=== PATIENT | male | born 1945 | race Caucasian/White ===

== ENCOUNTER 2022-01-09 10:29 | Inpatient (IN) | payer MEDICARE, SELFPAY ==
[2022-01-09] VITALS (108 sets, daily range): BP systolic 66–157; BP diastolic 34–91; PULSE 74–144; RESP 13–42; TEMP 36.6–39.2; O2SAT 9–98; BMI 33.9
--- NOTE | 2022-01-09 10:34 | XRR_ITS ---
PROCEDURE INFORMATION: Exam: XR Chest Exam date and time: 01/09/2022 10:48 AM Age: 76 years old Clinical indication: Shortness of breath; Additional info: SOB TECHNIQUE: Imaging protocol: XR of the chest. Views: 1 view. COMPARISON: CR Chest 1 [place] [id number] 02/27/2019 7:16 PM FINDINGS: Lungs: Unremarkable. No consolidation. Pleural spaces: Unremarkable. No pleural effusion. No pneumothorax. Heart/Mediastinum: Unremarkable. No cardiomegaly. Bones/joints: Unremarkable. XR/XR chest 1V portable [id number] IMPRESSION: No acute findings.
--- NOTE | 2022-01-09 10:35 | ECG_ITS ---
[facility] Test Date: 2022-01-09 Pat Name: Harpreet Pablo Department: Room: [facility]05 Gender: Male [employer] Technician: : 1945 Requested By: Freeman Miller Order Number: [id number] MD: Kuldip Wyatt M.D. Measurements Intervals [place] Rate: 114 P: -70 IA: 140 QRS: 18 QRSD: 152 T: 157 QT: 292 QTc: 402 Interpretive Statements JUNCTIONAL TACHYCARDIA LEFT BUNDLE BRANCH BLOCK [120+ ms QRS DURATION, 80+ ms Q/S IN V1/V2, 85+ ms R IN I/aVL/V5/V6] Compared to ECG 02/27/2019 18:48:55 Junctional tachycardia now present Sinus rhythm no longer present Electronically Signed On 01-10-2022 15:27:44 CDT by Kuldip Wyatt M.D. [id number]
--- NOTE | 2022-01-09 10:39 | PC.NURSE ---
PT PLACED ON CONTINUOUS BEDSIDE CARDIAC, BP AND O2 MONITOR.
[2022-01-09] MEDS: ipratropium-albuterol 3 mL Neb INHALATION ×4 (10:52→23:04)
--- NOTE | 2022-01-09 10:58 | W.ED.SOB ---
Documented by User: Freeman Miller MD 01/10/22 20:49 HPI - SOB/Dyspnea General: Chief Complaint: Shortness of Breath/Dyspnea Stated Complaint: SOB; N/V/D Time Seen by Provider: 01/09/22 10:31 Source: patient and EMS Mode of arrival: EMS Limitations: no limitations History of Present Illness: HPI Narrative: 76-year-old male who has a history of congestive heart failure from COPD along with coronary artery disease states been having shortness of breath throughout the day. He wears 2 L of oxygen at home is requiring 4 L here to keep his sats around 90. He states that he just felt like he cannot get his air caught up and was feeling nauseous. He denies any chest pain he has had some palpitation. Denies any worsening improving factors. Patient also states he been having some right lower quadrant abdominal pain over the last day as well. States that sharp in nature rates today 6 out of 10 Associated symptoms: Deny abdominal pain, chest pain, fever(s), nausea or vomiting Review of Systems Const: Denies: fever(s), chills, body aches or change in appetite Eyes: Denies: blurry vision or eye discomfort ENMT: Denies: throat pain or dental pain Card: Denies: chest pain Resp: Reports: dyspnea GI: Denies: abdominal pain, nausea, vomiting or diarrhea : Denies: dysuria Musc: Denies: neck pain or back pain Skin/Breast: Denies: rash Neuro: Denies: headache(s) Psych: Denies: depression Ashwin/Lymph: Denies: easy bruising All/Imm: Denies: urticaria PFSH ED PFSH: Medical History (Updated 01/10/22 @ 14:26 by Richard Castaneda MD) Atrial fibrillation CAD (coronary artery disease) Chronic kidney disease Emphysema lung Systolic CHF Surgical History (Updated 01/11/22 @ 16:19 by Liam William MD) S/P laparoscopic appendectomy (01/09/22) Family History Other CAD (coronary artery disease) Social History Substance/Drug Use: never Physical Exam Const: COMMON NORMALS: patient oriented x3 GENERAL APPEARANCE: in distress and ill appearing HENMT: COMMON NORMALS: normocephalic and atraumatic HEAD & SCALP: normocephalic and atraumatic Eye: COMMON NORMALS: Equal, round and reactive pupils present and EOMs intact bilaterally PUPIL: Yes Equal, round and reactive pupils present Neck/C-Spine: COMMON NORMALS: full ROM and supple Chest: COMMONS NORMALS: normal inspection of the chest and normal palpation of entire chest wall Resp: EFFORT & INSPECTION: Yes tachypneic, Yes respiratory distress and Yes labored AUSCULTATION: rales Cardio: COMMON NORMALS: regular rate, regular rhythm and No murmurs present (Cardio) RATE: regular rate RHYTHM: regular rhythm GI: COMMON NORMALS: Normal to inspection, nondistended, normoactive bowel sounds present, Soft to palpation and no masses PALPATION: Yes Soft to palpation and Yes Tenderness to palpation present (GI) Details: RLQ Extremity: COMMON NORMALS: normal to inspection and full ROM Neuro: COMMON NORMALS: patient oriented x3, moves all extremities and no focal motor deficits Psych: COMMON NORMALS: mental status grossly normal, Normal thought process present and cooperative THOUGHT PROCESS: Normal thought process present Skin: COMMON NORMALS: no rashes or lesions noted and no wounds GENERAL SKIN EXAM: no rashes or lesions noted Course Vital Signs: Vital signs: Vital Signs Temperature 98.6 F 01/11/22 20:00 Pulse Rate 110 H 01/11/22 22:00 Respiratory Rate 60 H 01/11/22 22:00 Blood Pressure 151/116 01/11/22 22:00 Pulse Oximetry 93 01/11/22 22:00 MDM - SOB/Dyspnea Medical Decision Making Patient presents with possible appendicitis and dyspnea patient's care was taken care of at been turned over to Dr. Reynoso to follow the CT scan and labs. Lab Data : 01/11/22 03:43 01/11/22 17:50 Labs/Radiology: Radiology Impressions Chest/Abdomen/Pelvis CT 01/09/22 11:30 IMPRESSION: 1. No evidence for pulmonary embolus. 2. There are emphysematous changes in the lungs. 3. Multivessel atherosclerotic disease which involves the coronary arteries. IMPRESSION: 1. Findings as stated above are consistent with acute appendicitis with associated appendiceal rupture. 2. Multi-vessel atherosclerotic disease. ADDENDUM: 01/09/22 1301 CRITICAL RESULT: The study was personally discussed on the telephone with Dr. Wills on 01/09/2022 12:59 PM CDT. The results were understood and acknowledged. Abdomen X-Ray 01/09/22 20:37 IMPRESSION: No acute abnormality demonstrated. KUB X-Ray 01/11/22 06:00 IMPRESSION: Significant gaseous distention of the stomach. Renal Ultrasound 01/11/22 09:12 IMPRESSION: Technically difficult study. Grossly normal renal ultrasound. Chest X-Ray 01/11/22 20:21 IMPRESSION: 1. Patchy airspace disease in the right and left lower lobes has decreased compared with the chest radiograph done earlier the same day, suggesting resolving atelectasis or pneumonia. 2. Interval placement of the right internal jugular dialysis catheter with the distal tip at the cavoatrial junction. 3. Incidental/nonacute findings are listed in the report. Laboratory Results WBC 21.4 10^3/uL (4.0-10.0) H 01/09/22 10:45 RBC 3.89 10^6/uL (4.1-5.3) L 01/09/22 10:45 Hgb 13.6 g/dL (11.7-16.6) 01/09/22 10:45 Hct 40.5 % (42.0-52.0) L 01/09/22 10:45 MCV 104.1 fl (80-94) H 01/09/22 10:45 MCH 35.0 pg (28.0-34.0) H 01/09/22 10:45 MCHC 33.6 g/dL (30.0-36.0) 01/09/22 10:45 RDW 13.1 % (12.1-15.1) 01/09/22 10:45 Plt Count 191 10^3/cmm (130-400) 01/09/22 10:45 MPV 9.6 fL (7.4-10.4) 01/09/22 10:45 Neut % (Auto) 95.1 % 01/09/22 10:45 Lymph % (Auto) 2.1 % 01/09/22 10:45 Sherman % (Auto) 1.7 % 01/09/22 10:45 Eos % (Auto) 0.0 % 01/09/22 10:45 Baso % (Auto) 0.4 % 01/09/22 10:45 Neut # (Auto) 20.35 10^3/uL (1.8-7.7) H 01/09/22 10:45 Lymph # (Auto) 0.5 10^3/uL (0.8-4.8) L 01/09/22 10:45 Sherman # (Auto) 0.4 10^3/uL (0.2-0.9) 01/09/22 10:45 Eos # (Auto) 0.0 10^3/uL (0.0-0.8) 01/09/22 10:45 Baso # (Auto) 0.1 10^3/uL (0.0-0.1) 01/09/22 10:45 Nucleated RBC % (auto) 0 % 01/09/22 10:45 Nucleated RBCs # 0.0 /100WBC 01/09/22 10:45 PT 15.40 SECONDS (12.1-14.9) H 01/09/22 10:45 INR 1.18 (0.8-1.2) 01/09/22 10:45 APTT 31.5 SECONDS (23.9-36.7) 01/09/22 10:45 D-Dimer 1.08 ug/mIFEU (0-0.59) H 01/09/22 10:45 Sodium 139 mmol/L (136-145) 01/09/22 10:45 Potassium 4.2 mmol/L (3.5-5.1) 01/09/22 10:45 Chloride 101 mmol/L (98-107) 01/09/22 10:45 Carbon Dioxide 23 mmol/L (22-29) 01/09/22 10:45 Anion Gap 19.2 (5-19) H 01/09/22 10:45 BUN 17 mg/dL (8-23) 01/09/22 10:45 Creatinine 1.5 mg/dL (0.7-1.2) H 01/09/22 10:45 GFR Calculation Not Reportable 01/09/22 10:45 Glucose 152 mg/dL (65-115) H 01/09/22 10:45 Estimat Average Glucose 123 01/09/22 10:45 Hemoglobin A1c 5.9 % (4.0-6.0) 01/09/22 10:45 Calculated Osmolality 293 mOsm/kg (285-295) 01/09/22 10:45 Lactic Acid 2.7 mmol/L (0.5-2.2) H 01/09/22 10:45 Lactic Acid (Sepsis) 3.1 mmol/L (0.5-2.2) H 01/09/22 12:30 Calcium 9.9 mg/dL (8.5-10.5) 01/09/22 10:45 Total Bilirubin 1.8 mg/dL (0.15-1.2) H 01/09/22 10:45 AST 26 U/L (0-40) 01/09/22 10:45 ALT 23 U/L (0-41) 01/09/22 10:45 Alkaline Phosphatase 72 IU/L (40-130) 01/09/22 10:45 Troponin T Baseline 25 ng/L (0-15) H 01/09/22 10:45 Troponin T 120 Minute 31.80 ng/L (0-15) H 01/09/22 12:30 Delta Troponin T 6.80 ABS# (0-10) 01/09/22 12:30 C-Reactive Protein 54.2 mg/L (0.0-4.9) H 01/09/22 10:45 NT-Pro-B Natriuret Pep 2619 pg/mL (0-450) H 01/09/22 10:45 Total Protein 7.1 g/dL (6.6-8.7) 01/09/22 10:45 Albumin 4.5 g/dL (3.5-5.2) 01/09/22 10:45 Globulin 2.6 g/dL (1.3-4.6) 01/09/22 10:45 Procalcitonin 2.27 ng/mL (0-0.5) H 01/09/22 10:45 TSH 1.29 uIU/mL (0.27-4.20) 01/09/22 10:45 Coronavirus 229E (PCR) Not detected (NOT DETECT) 01/09/22 11:47 Hep Bs Antigen Non-reactive (Nonreactive) 01/09/22 10:45 Hep Bs Antibody 3.5 (11.5-1000) L 01/09/22 10:45 Hepatitis C Antibody Non-reactive (Nonreactive) 01/09/22 10:45 SARS-CoV-2 (PCR) Not detected (NOT DETECT) 01/09/22 11:47 EKG Data EKG 1: I personally reviewed and interpreted this EKG as follows: EKG Interpretation Date: 01/09/22 EKG interpretation time: 10:35 Interpretation: junctional tachycardia hr 114 LBBB qrs 152 qtc 359 Discharge Plan Discharge Patient Disposition: Admitted As Inpatient Admit Provider: Richard Castaneda Clinical Impression: Appendicitis with perforation, Sepsis Condition: Stable Coding Level of Care Code ED Porcelain Enameler for Chg Fwd Exam Comprehensive Documented by User: Efren Wills MD 01/11/22 22:55 HPI - SOB/Dyspnea General: Chief Complaint: Shortness of Breath/Dyspnea Stated Complaint: SOB; N/V/D Time Seen by Provider: 01/09/22 10:31 PFSH ED PFSH: Medical History (Updated 01/10/22 @ 14:26 by Richard Castaneda MD) Atrial fibrillation CAD (coronary artery disease) Chronic kidney disease Emphysema lung Systolic CHF Surgical History (Updated 01/11/22 @ 16:19 by Liam William MD) S/P laparoscopic appendectomy (01/09/22) Family History Other CAD (coronary artery disease) Social History Substance/Drug Use: never Course Vital Signs: Vital signs: Vital Signs Temperature 98.6 F 01/11/22 20:00 Pulse Rate 110 H 01/11/22 22:00 Respiratory Rate 60 H 01/11/22 22:00 Blood Pressure 151/116 01/11/22 22:00 Pulse Oximetry 93 01/11/22 22:00 MDM - SOB/Dyspnea Medical Decision Making Patient presents with possible appendicitis and dyspnea patient's care was taken care of at been turned over to Dr. Reynoso to follow the CT scan and labs. Patient care handed off from Dr. Miller pending completion of ED evaluation. I personally valuated the patient and reperformed castellanos portions of E/M. Labs notable for leukocytosis. Creatinine mildly radicular to prior. Lactic acid is elevated. Patient did have downtrending blood pressures and IV fluids and antibiotics ordered. CT notable for appendicitis with evidence of perforation. Results of ED evaluation including plan for admission and surgical consultation discussed with the patient. He was agreeable. Discussed with Dr. William of general surgery who will come evaluate the patient. Given comorbidities the request addition to medicine service for assistance in management. Patient did develop worsening abdominal pain and was given analgesia. Admitted for further management of severe sepsis secondary to appendicitis. Efren Wills MD Emergency Medicine Lab Data : 01/11/22 03:43 01/11/22 17:50 Labs/Radiology: Radiology Impressions Chest/Abdomen/Pelvis CT 01/09/22 11:30 IMPRESSION: 1. No evidence for pulmonary embolus. 2. There are emphysematous changes in the lungs. 3. Multivessel atherosclerotic disease which involves the coronary arteries. IMPRESSION: 1. Findings as stated above are consistent with acute appendicitis with associated appendiceal rupture. 2. Multi-vessel atherosclerotic disease. ADDENDUM: 01/09/22 1301 CRITICAL RESULT: The study was personally discussed on the telephone with Dr. Wills on 01/09/2022 12:59 PM CDT. The results were understood and acknowledged. Abdomen X-Ray 01/09/22 20:37 IMPRESSION: No acute abnormality demonstrated. KUB X-Ray 01/11/22 06:00 IMPRESSION: Significant gaseous distention of the stomach. Renal Ultrasound 01/11/22 09:12 IMPRESSION: Technically difficult study. Grossly normal renal ultrasound. Chest X-Ray 01/11/22 20:21 IMPRESSION: 1. Patchy airspace disease in the right and left lower lobes has decreased compared with the chest radiograph done earlier the same day, suggesting resolving atelectasis or pneumonia. 2. Interval placement of the right internal jugular dialysis catheter with the distal tip at the cavoatrial junction. 3. Incidental/nonacute findings are listed in the report. Laboratory Results WBC 21.4 10^3/uL (4.0-10.0) H 01/09/22 10:45 RBC 3.89 10^6/uL (4.1-5.3) L 01/09/22 10:45 Hgb 13.6 g/dL (11.7-16.6) 01/09/22 10:45 Hct 40.5 % (42.0-52.0) L 01/09/22 10:45 MCV 104.1 fl (80-94) H 01/09/22 10:45 MCH 35.0 pg (28.0-34.0) H 01/09/22 10:45 MCHC 33.6 g/dL (30.0-36.0) 01/09/22 10:45 RDW 13.1 % (12.1-15.1) 01/09/22 10:45 Plt Count 191 10^3/cmm (130-400) 01/09/22 10:45 MPV 9.6 fL (7.4-10.4) 01/09/22 10:45 Neut % (Auto) 95.1 % 01/09/22 10:45 Lymph % (Auto) 2.1 % 01/09/22 10:45 Sherman % (Auto) 1.7 % 01/09/22 10:45 Eos % (Auto) 0.0 % 01/09/22 10:45 Baso % (Auto) 0.4 % 01/09/22 10:45 Neut # (Auto) 20.35 10^3/uL (1.8-7.7) H 01/09/22 10:45 Lymph # (Auto) 0.5 10^3/uL (0.8-4.8) L 01/09/22 10:45 Sherman # (Auto) 0.4 10^3/uL (0.2-0.9) 01/09/22 10:45 Eos # (Auto) 0.0 10^3/uL (0.0-0.8) 01/09/22 10:45 Baso # (Auto) 0.1 10^3/uL (0.0-0.1) 01/09/22 10:45 Nucleated RBC % (auto) 0 % 01/09/22 10:45 Nucleated RBCs # 0.0 /100WBC 01/09/22 10:45 PT 15.40 SECONDS (12.1-14.9) H 01/09/22 10:45 INR 1.18 (0.8-1.2) 01/09/22 10:45 APTT 31.5 SECONDS (23.9-36.7) 01/09/22 10:45 D-Dimer 1.08 ug/mIFEU (0-0.59) H 01/09/22 10:45 Sodium 139 mmol/L (136-145) 01/09/22 10:45 Potassium 4.2 mmol/L (3.5-5.1) 01/09/22 10:45 Chloride 101 mmol/L (98-107) 01/09/22 10:45 Carbon Dioxide 23 mmol/L (22-29) 01/09/22 10:45 Anion Gap 19.2 (5-19) H 01/09/22 10:45 BUN 17 mg/dL (8-23) 01/09/22 10:45 Creatinine 1.5 mg/dL (0.7-1.2) H 01/09/22 10:45 GFR Calculation Not Reportable 01/09/22 10:45 Glucose 152 mg/dL (65-115) H 01/09/22 10:45 Estimat Average Glucose 123 01/09/22 10:45 Hemoglobin A1c 5.9 % (4.0-6.0) 01/09/22 10:45 Calculated Osmolality 293 mOsm/kg (285-295) 01/09/22 10:45 Lactic Acid 2.7 mmol/L (0.5-2.2) H 01/09/22 10:45 Lactic Acid (Sepsis) 3.1 mmol/L (0.5-2.2) H 01/09/22 12:30 Calcium 9.9 mg/dL (8.5-10.5) 01/09/22 10:45 Total Bilirubin 1.8 mg/dL (0.15-1.2) H 01/09/22 10:45 AST 26 U/L (0-40) 01/09/22 10:45 ALT 23 U/L (0-41) 01/09/22 10:45 Alkaline Phosphatase 72 IU/L (40-130) 01/09/22 10:45 Troponin T Baseline 25 ng/L (0-15) H 01/09/22 10:45 Troponin T 120 Minute 31.80 ng/L (0-15) H 01/09/22 12:30 Delta Troponin T 6.80 ABS# (0-10) 01/09/22 12:30 C-Reactive Protein 54.2 mg/L (0.0-4.9) H 01/09/22 10:45 NT-Pro-B Natriuret Pep 2619 pg/mL (0-450) H 01/09/22 10:45 Total Protein 7.1 g/dL (6.6-8.7) 01/09/22 10:45 Albumin 4.5 g/dL (3.5-5.2) 01/09/22 10:45 Globulin 2.6 g/dL (1.3-4.6) 01/09/22 10:45 Procalcitonin 2.27 ng/mL (0-0.5) H 01/09/22 10:45 TSH 1.29 uIU/mL (0.27-4.20) 01/09/22 10:45 Coronavirus 229E (PCR) Not detected (NOT DETECT) 01/09/22 11:47 Hep Bs Antigen Non-reactive (Nonreactive) 01/09/22 10:45 Hep Bs Antibody 3.5 (11.5-1000) L 01/09/22 10:45 Hepatitis C Antibody Non-reactive (Nonreactive) 01/09/22 10:45 SARS-CoV-2 (PCR) Not detected (NOT DETECT) 01/09/22 11:47 Critical Care Time Critical Care Time: Critical Care Time: Yes Total Critical Care Time: 35 Attestation: Due to a high probability of clinically significant, possibly life threatening deterioration, the patient required my highest level of attention and preparedness to intervene emergently and I personally spent this critical care time directly and personally managing the patient. This critical care time included obtaining a history; examining the patient; pulse oximetry; ordering and review of laboratory and imaging studies; arranging urgent treatment with development of a management plan; evaluation of patient's response to treatment; frequent reassessment; and, discussions with other providers as applicable. It was exclusive of separately billable procedures. Primary system involved is immune and GI Discharge Plan Discharge Patient Disposition: Admitted As Inpatient Admit Provider: Richard Castaneda Clinical Impression: Appendicitis with perforation, Sepsis Condition: Stable Coding Level of Care Code ED Porcelain Enameler for Chg Fwd Exam Comprehensive
[2022-01-09 11:10] LABS: Basophils # 0.1 10^3/uL (0.0-0.1); Basophils % 0.4 %; Hematocrit 40.5 % (42.0-52.0); Hemoglobin 13.6 g/dL (11.7-16.6); Lymphocytes # 0.5 10^3/uL (0.8-4.8); Lymphocytes % 2.1 %; Mean Corpuscular HGB Conc 33.6 g/dL (30.0-36.0); Mean Corpuscular Volume 104.1 fl (80-94); Mean Platelet Volume 9.6 fL (7.4-10.4); Monocytes # 0.4 10^3/uL (0.2-0.9); Monocytes % 1.7 %; Neutrophils # 20.35 10^3/uL (1.8-7.7); Neutrophils % 95.1 %; Nucleated Red Blood Cells % 0 %; Platelet Count 191 10^3/cmm (130-400); Red Blood Count 3.89 10^6/uL (4.1-5.3); Red Cell Distribution Width 13.1 % (12.1-15.1); White Blood Count 21.4 10^3/uL (4.0-10.0)
--- NOTE | 2022-01-09 11:30 | CTR_ITS ---
PROCEDURE INFORMATION: Exam: CTA Chest With Contrast Exam date and time: 01/09/2022 12:20 PM Age: 76 years old Clinical indication: Abdominal pain; Generalized; Chest pressure; Additional info: Cp TECHNIQUE: Imaging protocol: Computed tomographic angiography of the chest with contrast. 3D rendering (Not supervised by radiologist): MIP and/or 3D reconstructed images were created by the technologist. Radiation optimization: All CT scans at this facility use at least one of these dose optimization techniques: automated exposure control; mA and/or kV adjustment per patient size (includes targeted exams where dose is matched to clinical indication); or iterative reconstruction. Contrast material: VISI 320; Contrast volume: 95 ml; Contrast route: INTRAVENOUS (IV); COMPARISON: 1. CTA Chest[place] [id number] 02/27/2019 8:30 PM 2. CR Abdomen 2 views [id number] 02/27/2019 8:43 PM RADIATION DOSE METRICS: Total DLP (mGy-cm): 2000.04 FINDINGS: Pulmonary arteries: Normal. No pulmonary emboli. Aorta: Unremarkable. No aortic aneurysm. No aortic dissection. Lungs: There are emphysematous changes in lungs, similar to the prior study. Pleural spaces: Unremarkable. No pneumothorax. No pleural effusion. Heart: Multivessel atherosclerotic disease which involves the coronary arteries. Lymph nodes: Unremarkable. No enlarged lymph nodes. Bones/joints: Chronic left 9th rib fracture site. Soft tissues: Unremarkable. PROCEDURE INFORMATION: Exam: CT Abdomen And Pelvis With Contrast Exam date and time: 01/09/2022 12:20 PM Age: 76 years old Clinical indication: Abdominal pain; Generalized; Chest pressure; Additional info: Cp TECHNIQUE: Imaging protocol: Computed tomography of the abdomen and pelvis with contrast. Radiation optimization: All CT scans at this facility use at least one of these dose optimization techniques: automated exposure control; mA and/or kV adjustment per patient size (includes targeted exams where dose is matched to clinical indication); or iterative reconstruction. Contrast material: VISI 320; Contrast volume: 95 ml; Contrast route: INTRAVENOUS (IV); COMPARISON: 1. CTA Chest-Pulmonary Emb [id number] 02/27/2019 8:30 PM 2. CR Abdomen 2 views [id number] 02/27/2019 8:43 PM RADIATION DOSE METRICS: Total DLP (mGy-cm): 2000.04 FINDINGS: Liver: Normal. No mass. Gallbladder and bile ducts: Normal. No calcified stones. No ductal dilation. Pancreas: Normal. No ductal dilation. Spleen: Normal. No splenomegaly. Adrenal glands: Normal. No mass. Kidneys and ureters: Normal. No hydronephrosis. Stomach and bowel: The cecum is positioned in the right upper quadrant in this patient. There is an ill-defined inflamed tubular structure extending from the cecum consistent with acute appendicitis. There are associated appendicoliths. Foci of free air surround the tip of the appendix consistent with appendiceal rupture. There is adjacent fluid stranding however no discrete abscess formation. There is diverticulosis of the colon without evidence of diverticulitis. Appendix: See Stomach and bowel finding. Intraperitoneal space: See Stomach and bowel finding. Vasculature: Multi-vessel atherosclerotic disease including calcified plaque at the origins of the celiac trunk, superior mesenteric artery, and renal arteries. 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 No evidence for rupture. Lymph nodes: Unremarkable. No enlarged lymph nodes. Urinary bladder: Unremarkable as visualized. Reproductive: Unremarkable as visualized. Bones/joints: Unremarkable. No acute fracture. Soft tissues: Unremarkable. CT/CT angio chest w abd pel w con IMPRESSION: 1. No evidence for pulmonary embolus. 2. There are emphysematous changes in the lungs. 3. Multivessel atherosclerotic disease which involves the coronary arteries. IMPRESSION: 1. Findings as stated above are consistent with acute appendicitis with associated appendiceal rupture. 2. Multi-vessel atherosclerotic disease.
[2022-01-09 11:39] LABS: Troponin(5th) Baseline 25 ng/L (0-15)
[2022-01-09 11:46] LABS: Alanine Aminotransferase 23 U/L (0-41); Albumin Level 4.5 g/dL (3.5-5.2); Alkaline Phosphatase 72 IU/L (40-130); Aspartate Amino Transferase 26 U/L (0-40); Blood Urea Nitrogen 17 mg/dL (8-23); Calcium 9.9 mg/dL (8.5-10.5); Carbon Dioxide 23 mmol/L (22-29); Chloride 101 mmol/L (98-107); Globulin 2.6 g/dL (1.3-4.6); Glucose 152 mg/dL (65-115); NT Pro B Type Natriuretic Pept 2619 pg/mL (0-450); Osmolality Calculated 293 mOsm/kg (285-295); Sodium 139 mmol/L (136-145); Total Bilirubin 1.8 mg/dL (0.15-1.2); Total Protein 7.1 g/dL (6.6-8.7)
[2022-01-09 11:53] LABS: Lactic Sepsis W/Reflex 2.7 mmol/L (0.5-2.2)
[2022-01-09 11:59] LABS: Anion Gap 19.2 (5-19); Potassium 4.2 mmol/L (3.5-5.1)
[2022-01-09] MEDS: sodium chloride 0.9% 500 ML 999 ML IV ×3 (12:00→23:50)
[2022-01-09 12:10] LABS: INR 1.18 (0.8-1.2)
[2022-01-09 12:12] LABS: D Dimer 1.08 ug/mIFEU (0-0.59)
[2022-01-09 12:14] LABS: Reflex Lactate Order REFLEX LACTIC ORDERD
[2022-01-09] MEDS: iodixanol 320 mg/mL 100mL Btl IV (12:19)
--- NOTE | 2022-01-09 12:35 | ECG_ITS ---
[facility] Test Date: 2022-01-09 Pat Name: Harpreet Pablo Department: Room: [facility]05 Gender: Male Pattern Molder: : 1945 Requested By: Freeman Miller Order Number: [id number] Reading MD: Kuldip Wyatt M.D. Measurements Intervals [place] Rate: 89 P: -60 RI: 162 QRS: 30 QRSD: 154 T: 183 QT: 386 QTc: 471 Interpretive Statements ECTOPIC ATRIAL RHYTHM WITH FREQUENT VENTRICULAR PREMATURE COMPLEXES LEFT BUNDLE BRANCH BLOCK [120+ ms QRS DURATION, 80+ ms Q/S IN V1/V2, 85+ ms R IN I/aVL/V5/V6] Compared to ECG 01/09/2022 10:35:12 Ectopic atrial rhythm now present Ventricular premature complex(es) now present Junctional tachycardia no longer present Electronically Signed On 01-11-2022 9:21:18 CDT by Kuldip Wyatt M.D. [id number]
[2022-01-09] MEDS: piperacillin-tazobactam 4.5 GM in sodium chloride 0.9% (plus) 50 ML IV (13:07)
[2022-01-09 13:09] LABS: Lactic Acid level (Lactate) 3.1 mmol/L (0.5-2.2)
[2022-01-09] MEDS: fentaNYL 50 mcg/mL INJ 2mL IVP ×4 (13:35→15:56)
--- NOTE | 2022-01-09 14:12 | PM.CONSULT ---
Providers/Reason For Consult Consulting Physician/Specialty*: General Surgery Dr. William Reason for Consult*: Acute appendicitis Attending Physician: Richard Castaneda MD Primary Care Provider: Jason Rivas MD History of Present Illness History of Present Illness Harpreet Pablo is a 76 year old male who presented to the ER today with worsening abdominal pain. The patient stated that the pain started yesterday afternoon and was localized to the right lower quadrant but it progressively worsened during the night. He denies any fevers or chills. No nausea, vomiting, constipation or diarrhea. He is up-to-date on his colonoscopy. Patient is on 2 L oxygen due to COPD. No prior abdominal surgeries. He is on Eliquis Review of Systems General: Reports: 10 or more systems reviewed and unremarkable except in HPI and below Medications/Allergies Home Medications Medication Instructions Recorded Confirmed Last Taken Type albuterol sulfate 90 mcg/actuation 2 puff INHALATION Q6H PRN 01/09/22 01/09/22 Unknown History aerosol inhaler apixaban 5 mg tablet (Eliquis) 5 mg PO BID 01/09/22 01/09/22 01/09/22 History azithromycin 250 mg tablet See Rx Instructions .ROUTE .COMPLEX 01/09/22 01/09/22 01/07/22 History bupropion HCl 150 mg 24 hr tablet, 150 mg PO DAILY 01/09/22 01/09/22 01/09/22 History extended release ferrous sulfate 325 mg (65 mg 325 mg PO DAILY 01/09/22 01/09/22 01/09/22 History iron) tablet (FeroSul) fluticasone propionate 50 2 spray INTRANASAL DAILY PRN 01/09/22 01/09/22 Unknown History mcg/actuation nasal spray,suspension furosemide 40 mg tablet 40 mg PO DAILY 01/09/22 01/09/22 01/09/22 History isosorbide mononitrate 120 mg 120 mg PO DAILY 01/09/22 01/09/22 01/09/22 History tablet,extended release 24 hr lisinopril 5 mg tablet 5 mg PO DAILY 01/09/22 01/09/22 01/09/22 History metoprolol succinate 50 mg 50 mg PO DAILY 01/09/22 01/09/22 01/09/22 History tablet,extended release 24 hr pantoprazole 40 mg tablet,delayed 40 mg PO DAILY 01/09/22 01/09/22 01/09/22 History release phenylephrine HCl 0.5 % nasal mist 1 spray INTRANASAL Q8H PRN 01/09/22 01/09/22 Unknown History rosuvastatin 40 mg tablet 20 mg PO DAILY 01/09/22 01/09/22 01/08/22 History tiotropium 2.5 mcg-olodaterol 2.5 1 puff INHALATION DAILY 01/09/22 01/09/22 01/09/22 History mcg/actuation mist for inhalation (Stiolto Respimat) Allergies Allergy/AdvReac Type Severity Reaction Status Date / Time No Known Allergies Allergy Unverified 01/09/22 12:52 Current Medications Generic Name Dose Route Start Last Admin Trade Name Freq PRN Reason Stop Dose Admin Fentanyl 50 mcg 01/09/22 13:30 01/09/22 13:35 Fentanyl 50 Mcg/Ml Inj 2ml IVP 50 mcg Q30M PRN Administration pain PFSH Acute PFSH: Medical History (Updated 01/09/22 @ 13:11 by Efren Wills MD) CAD (coronary artery disease) Social History (Updated 01/09/22 @ 11:00 by Freeman Miller MD) Substance/Drug Use: never Vitals/I&O/Wt Last Vital Signs Temp 97.9 F 01/09/22 10:30 Pulse 92 01/09/22 12:51 Resp 23 H 01/09/22 13:35 BP 103/52 01/09/22 12:51 Pulse Ox 92 01/09/22 13:35 Weight last 48 hrs Weight 243 lb Physical Exam Narrative: HEENT: Normocephalic Eye: Sclera /conjunctiva normal Abdomen: Soft to palpation, exquisitely tender in the right lower abdomen nondistended Neurological: Oriented to place person and time Skin: Intact, no lesions appreciated on gross exam Data : 01/09/22 10:45 01/09/22 10:45 Micro: Microbiology 01/09/22 12:35 Blood Culture - Preliminary Blood SPECIMEN COLLECTED 01/09/22 12:30 Blood Culture - Preliminary Blood SPECIMEN COLLECTED A&P Assessment and plan (1) Appendicitis with perforation: 76-year-old male with COPD, CHF on Eliquis who presents with 24-hour history of severe right lower quadrant pain. His WBC is up to [address] scan shows findings consistent with acute appendicitis with possible perforation but no evidence of abscess. Plan for laparoscopic possible open appendectomy after reversal of his anticoagulation Procedure, risks, benefits and alternatives have been discussed with the patient who wishes to proceed with surgery. Discussed with the patient and the family the higher risks due to his comorbidities including bleeding, infection, bowel injury, perforation, anesthetic complications etc. 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
--- NOTE | 2022-01-09 14:16 | PM.HP ---
Providers/Chief Complaint Admitting Physician: Richard Castaneda MD Primary Care Provider: Jason Rivas MD Chief Complaint: SOB; N/V/D History of Present Illness Harpreet Pablo is a 76 year old male with a past medical history of emphysema on 3 L nasal cannula, history of atrial fibrillation on Eliquis, he took his Eliquis this morning, history of systolic CHF, EF around 40%, history of CAD, no history of stents, he tells me that he had four-vessel disease so they could not put in stents, but he has had 2 heart attacks, chronic kidney disease stage unknown, who presents to [facility] due to sudden onset abdominal pain. Currently patient's blood pressures 100s over 50s, heart rates in low 100s, he is breathing 20-30 times a minute, and severe pain, he actually wants to move off the gurney because he has severe pain in the right lower quadrant and left lower quadrant, he is feeling very nauseous, denies any bloody or black stools, denies any vomiting blood. It is difficult to get a history from patient as he is in such severe pain, getting fentanyl. He tells me that this morning he felt increasingly short of breath, he had trouble catching his breath, no chest pain, no palpitations, he has severe right lower quadrant abdominal pain over the last day, last bowel movement over a day ago, in the emergency room he was found to have perforated appendicitis, given a liter bolus of fluid, currently on 4 L, blood pressures are soft, is tachycardic, tachypneic, he took Eliquis this morning, INR within normal limits, hemoglobin within normal limits, elevated lactic acid, elevated BNP, elevated troponins. On exam abdomen is tense, significant tenderness on exam, has guarding, has rebound, has rigidity, has acute surgical abdomen. I discussed with patient and family at bedside that patient as he has a significant cardiovascular history, emphysema history history of chronic renal failure, and as he is on Eliquis, he does carry measurable risk for surgery in clinic when a limited to bleeding, cardiac arrest. They voiced understanding, all questions answered, agreed to proceed as patient has surgical abdomen. Issue is that patient took Eliquis this morning, 5 mg, has significant risk of bleeding during surgery, especially as he has a perforated viscus, discussed with Dr. William, agreeable to proceed with surgery, agreeable with patient getting reversal agent andexxa. Plan is for patient to get andexxa proceed with surgical intervention at roughly 4 PM. Review of Systems Const: Denies: fever(s) Eyes: Denies: change in vision Card: Reports: irregular heart rhythm; Denies: chest pain, palpitations or edema Resp: Reports: dyspnea; Denies: productive cough, non-productive cough or wheezing GI: Reports: abdominal pain, nausea and vomiting : Denies: flank pain, difficulty urinating, dysuria or urinary frequency Medications/Allergies Home Medications Medication Instructions Recorded Confirmed Last Taken Type albuterol sulfate 90 mcg/actuation 2 puff INHALATION Q6H PRN 01/09/22 01/09/22 Unknown History aerosol inhaler apixaban 5 mg tablet (Eliquis) 5 mg PO BID 01/09/22 01/09/22 01/09/22 History azithromycin 250 mg tablet See Rx Instructions .ROUTE .COMPLEX 01/09/22 01/09/22 01/07/22 History bupropion HCl 150 mg 24 hr tablet, 150 mg PO DAILY 01/09/22 01/09/22 01/09/22 History extended release ferrous sulfate 325 mg (65 mg 325 mg PO DAILY 01/09/22 01/09/22 01/09/22 History iron) tablet (FeroSul) fluticasone propionate 50 2 spray INTRANASAL DAILY PRN 01/09/22 01/09/22 Unknown History mcg/actuation nasal spray,suspension furosemide 40 mg tablet 40 mg PO DAILY 01/09/22 01/09/22 01/09/22 History isosorbide mononitrate 120 mg 120 mg PO DAILY 01/09/22 01/09/22 01/09/22 History tablet,extended release 24 hr lisinopril 5 mg tablet 5 mg PO DAILY 01/09/22 01/09/22 01/09/22 History metoprolol succinate 50 mg 50 mg PO DAILY 01/09/22 01/09/22 01/09/22 History tablet,extended release 24 hr pantoprazole 40 mg tablet,delayed 40 mg PO DAILY 01/09/22 01/09/22 01/09/22 History release phenylephrine HCl 0.5 % nasal mist 1 spray INTRANASAL Q8H PRN 01/09/22 01/09/22 Unknown History rosuvastatin 40 mg tablet 20 mg PO DAILY 01/09/22 01/09/22 01/08/22 History tiotropium 2.5 mcg-olodaterol 2.5 1 puff INHALATION DAILY 01/09/22 01/09/22 01/09/22 History mcg/actuation mist for inhalation (Stiolto Respimat) Allergies Allergy/AdvReac Type Severity Reaction Status Date / Time No Known Allergies Allergy Unverified 01/09/22 12:52 PFSH Acute PFSH: Medical History (Updated 01/09/22 @ 14:25 by Richard Castaneda MD) Atrial fibrillation CAD (coronary artery disease) Chronic kidney disease Emphysema lung Systolic CHF Surgical History (Updated 01/09/22 @ 14:22 by Richard Castaneda MD) No pertinent past surgical history Family History (Updated 01/09/22 @ 14:22 by Richard Castaneda MD) Other CAD (coronary artery disease) Social History (Updated 01/09/22 @ 11:00 by Freeman Miller MD) Substance/Drug Use: never Vitals/I&O/Wt Last Vital Signs Temp 97.9 F 01/09/22 10:30 Pulse 92 01/09/22 12:51 Resp 23 H 01/09/22 13:35 BP 103/52 01/09/22 12:51 Pulse Ox 92 01/09/22 13:35 Weight last 48 hrs Weight 110.223 kg Physical Exam Const: COMMON NORMALS: patient oriented x3 GENERAL APPEARANCE: in distress and ill appearing ORIENTATION/CONSCIOUSNESS: Yes awake, Yes oriented to person, Yes oriented to place and Yes oriented to time OTHER: In severe pain, writhing in pain Difficult to do a physical exam as he keeps writhing in pain HENMT: COMMON NORMALS: normocephalic HEAD & SCALP: normocephalic Neck/C-Spine: COMMON NORMALS: no JVD Resp: COMMON NORMALS: normal respiratory effort, No retractions, No use of accessory muscles and clear to auscultation bilaterally AUSCULTATION: clear to auscultation bilaterally OTHER: Tachypnea Cardio: COMMON NORMALS: no JVD, regular rate, regular rhythm, S1 normal heart sound present and S2 normal heart sound present RATE: regular rate RHYTHM: regular rhythm HEART SOUNDS: S1 normal heart sound present and S2 normal heart sound present GI: INSPECTION: Yes abdominal distension AUSCULTATION: Yes Absent bowel sounds PALPATION: Yes Tenderness to palpation present (GI) Details: LLQ and RLQ, Yes Guarding due to palpation present (GI) and Yes Rigid due to palpation Extremity: COMMON NORMALS: capillary refill normal, no clubbing, cyanosis or edema, no calf tenderness and no pedal edema Neuro: COMMON NORMALS: patient oriented x3 Psych: COMMON NORMALS: mental status grossly normal Data : 01/09/22 10:45 01/09/22 10:45 Micro: Microbiology 01/09/22 12:35 Blood Culture - Preliminary Blood SPECIMEN COLLECTED 01/09/22 12:30 Blood Culture - Preliminary Blood SPECIMEN COLLECTED A&P Assessment and plan (1) Appendicitis with perforation: Status: Acute (2) CAD (coronary artery disease): Status: Acute (3) Sepsis: Status: Acute (4) ROXANA (acute kidney injury): Status: Acute (5) NSTEMI (non-ST elevated myocardial infarction): Status: Acute (6) Systolic CHF: Status: Acute (7) COPD exacerbation: Status: Acute Plan Acute appendicitis with perforation an sepsis -Currently n.p.o. -Continue Zosyn and vancomycin for antibiotic coverage -Has received fluid boluses blood pressures are soft -Consider Levophed to avoid fluid overload -Maintain map around 65 -Telemetry monitoring -Serial abdominal exams -Will receive andexxa for reversal of Eliquis, in preparation for surgery -Admit to ICU -Full code -SCDs for DVT prophylaxis Acute hypoxia, shortness of breath -Combination of systolic and COPD exacerbation -For now we will hold off on diuretics, steroids -Monitor respiratory status closely is on his base home 3.5 L of oxygen -Continue nebulizer treatments CAD with elevated troponins -Serial EKGs, serial troponins, telemetry monitoring Elevated lactic acid, secondary to acute appendicitis perforation above Sepsis secondary acute appendicitis, perforation as above Attestations Medical Necessity Statement*: Patient requires hospitalization for acute appendicitis, ICU admission, greater than 2 midnights Critical Care Time: 35 Coding Level of Care Code Acute 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
[2022-01-09] MEDS: factor xa, inactivated-zhzo 400 MG in empty flexible container 1 EACH, non-DEHP filter ... 180 MG IV (14:55)
[2022-01-09] MEDS: factor xa, inactivated-zhzo 480 MG in empty flexible container 1 EACH, non-DEHP filter ... 24 MG IV (15:04)
[2022-01-09 15:20] LABS: Partial Thromboplastin Time 31.5 SECONDS (23.9-36.7)
[2022-01-09] MEDS: vancomycin 1,500 MG/300 ML PIGGYBACK 200 MG IV (15:27)
[2022-01-09] MEDS: pantoprazole 40 mg SDV IVP (15:30)
--- NOTE | 2022-01-09 15:44 | ANES.PREANE2 ---
Pre-Anesthetic Assessment Height/Weight: Height 1.8 m Weight 110.223 kg Temp Pulse Resp BP Pulse Ox 97.9 F 85 20 H 128/60 93 01/09/22 10:30 01/09/22 15:29 01/09/22 15:29 01/09/22 14:00 01/09/22 15:32 Preop Diagnosis: Acute appendicitis Operation Date: 01/09/22 16:30 Proposed Procedures p Laparoscopic Appendectomy(Not Applicable) - Liam William MD Pulmonary Chronic Obstructive Pulmonary Disease On nasal cannula 5 liter 93% SpO2 CV/HEM Atrial Fibrillation, Coronary Artery Disease, Congestive Heart Failure and Myocardial Infarction (NSTEMI, Hx of prior NV w/o CA stents ) Sepsis Elevated troponin and BNP Chronic Renal Insufficiency (Acute on chronic kidney disease ) Lactic acidosis EKG 01/09/22 ? ? Interpretive Statements ECTOPIC ATRIAL RHYTHM WITH FREQUENT VENTRICULAR PREMATURE COMPLEXES LEFT BUNDLE BRANCH BLOCK? [120+ ms QRS DURATION, 80+ ms Q/S IN V1/V2, 85+ ms R IN I/aVL/V5/V6] Compared to ECG 01/09/2022 10:35:12 Ectopic atrial rhythm now present Ventricular premature complex(es) now present Junctional tachycardia no longer present [email or web address] GI Gastroesophageal Reflux Disease Metabolic Diabetes Mellitus (Borderline diabetes ) [place]pt[place] [facility] Osteoarthritis/DJD Neuropsych Anxiety and Transient Ischemic Attack (Hx of mini strokes ) Anesthetic Plan ASA status: 4 Anesthesia: Anesthesia Evaluation and General Other: I discussed with the patient and his the risk and benefits of general anesthesia including PRN central and arterial lines, post-op return to ICU with breathing tube, PONV, sore throat (sometimes severe), corneal abrasion, positioning and peripheral nerve injuries, life threatening allergic reaction, post operative ICU admission requiring prolonged intubation, stroke, heart attack, , and rare incidences of recall. Patient consents to proceed with general anesthesia. Patient in acute pain and receiving morphine, consent form signed by patient's . Risk of > 500 ml blood loss (7ml/kg in children): Yes, adequate IV access and fluids planned Other Pertinent Information CT C/A/P 01/09/22 CT/CT angio chest w abd pel w con IMPRESSION: 1. No evidence for pulmonary embolus. 2. There are emphysematous changes in the lungs. 3. Multivessel atherosclerotic disease which involves the coronary arteries. ? ? Status post Factor Xa inactiv zhzo for apixaban reversal @ 1430 and 1629, Zosyn @1600, vancomycin @ 1515 Medications/Allergies Home Medications Medication Instructions Recorded Confirmed Last Taken Type albuterol sulfate 90 mcg/actuation 2 puff INHALATION Q6H PRN 01/09/22 01/09/22 Unknown History aerosol inhaler apixaban 5 mg tablet (Eliquis) 5 mg PO BID 01/09/22 01/09/22 01/09/22 History azithromycin 250 mg tablet See Rx Instructions .ROUTE .COMPLEX 01/09/22 01/09/22 01/07/22 History bupropion HCl 150 mg 24 hr tablet, 150 mg PO DAILY 01/09/22 01/09/22 01/09/22 History extended release ferrous sulfate 325 mg (65 mg 325 mg PO DAILY 01/09/22 01/09/22 01/09/22 History iron) tablet (FeroSul) fluticasone propionate 50 2 spray INTRANASAL DAILY PRN 01/09/22 01/09/22 Unknown History mcg/actuation nasal spray,suspension furosemide 40 mg tablet 40 mg PO DAILY 01/09/22 01/09/22 01/09/22 History isosorbide mononitrate 120 mg 120 mg PO DAILY 01/09/22 01/09/22 01/09/22 History tablet,extended release 24 hr lisinopril 5 mg tablet 5 mg PO DAILY 01/09/22 01/09/22 01/09/22 History metoprolol succinate 50 mg 50 mg PO DAILY 01/09/22 01/09/22 01/09/22 History tablet,extended release 24 hr pantoprazole 40 mg tablet,delayed 40 mg PO DAILY 01/09/22 01/09/22 01/09/22 History release phenylephrine HCl 0.5 % nasal mist 1 spray INTRANASAL Q8H PRN 01/09/22 01/09/22 Unknown History rosuvastatin 40 mg tablet 20 mg PO DAILY 01/09/22 01/09/22 01/08/22 History tiotropium 2.5 mcg-olodaterol 2.5 1 puff INHALATION DAILY 01/09/22 01/09/22 01/09/22 History mcg/actuation mist for inhalation (Stiolto Respimat) Allergies Allergy/AdvReac Type Severity Reaction Status Date / Time No Known Allergies Allergy Unverified 01/09/22 12:52 Current Medications Generic Name Dose Route Start Last Admin Trade Name Freq PRN Reason Stop Dose Admin Albuterol/Ipratropium 3 ml 01/09/22 16:00 01/09/22 15:29 Ipratropium-Albuterol 3 Ml Neb INHALATION 3 ml Q4H.RESPIRATORY NORRIS Administration Fentanyl 50 mcg 01/09/22 13:30 01/09/22 15:22 Fentanyl 50 Mcg/Ml Inj 2ml IVP 50 mcg Q30M PRN Administration pain Factor Xa(Recombinant) Inactiv 48 mls @ 24 mls/hr 01/09/22 14:30 01/09/22 15:04 -zhzo 480 mg/ N/A/ IV IV 01/09/22 16:29 24 mls/hr Miscellaneous Supplies .Q2H ONE Administration Vancomycin/PEG/NADA/Lysine/Water 1,500 mg in 300 mls @ 200 mls/hr 01/09/22 15:15 01/09/22 15:27 Vancocin IV 200 mls/hr Q24H NORRIS Administration Pantoprazole Sodium 40 mg 01/09/22 16:00 01/09/22 15:30 Pantoprazole 40 Mg Sdv IVP 40 mg Q12H NORRIS Administration PFSH Anesthesia Medical History Atrial fibrillation CAD (coronary artery disease) Chronic kidney disease Emphysema lung Systolic CHF Surgical History No pertinent past surgical history Family History Other CAD (coronary artery disease) Social History Substance/Drug Use: never Data Anesthesia : 01/09/22 10:45 01/09/22 10:45 Short CBC 01/09/22 Range/Units 10:45 WBC 21.4 H (4.0-10.0) 10^3/uL Hgb 13.6 (11.7-16.6) g/dL Hct 40.5 L (42.0-52.0) % MCV 104.1 H (80-94) fl Plt Count 191 (130-400) 10^3/cmm Neut % (Auto) 95.1 % Neut # (Auto) 20.35 H (1.8-7.7) 10^3/uL BMP 01/09/22 10:45 Sodium 139 Potassium 4.2 Chloride 101 Carbon Dioxide 23 BUN 17 Creatinine 1.5 H Glucose 152 H Calcium 9.9 Cardiac Enzymes 01/09/22 01/09/22 01/09/22 Range/Units 10:45 10:45 12:30 Troponin T Baseline 25 H (0-15) ng/L Troponin T 120 Minute 31.80 H (0-15) ng/L Delta Troponin T 6.80 (0-10) ABS# NT-Pro-B Natriuret Pep 2619 H (0-450) pg/mL Liver Function 01/09/22 Range/Units 10:45 Total Bilirubin 1.8 H (0.15-1.2) mg/dL AST 26 (0-40) U/L ALT 23 (0-41) U/L Alkaline Phosphatase 72 (40-130) IU/L Albumin 4.5 (3.5-5.2) g/dL Coags 01/09/22 01/09/22 10:45 10:45 PT 15.40 H INR 1.18 APTT 31.5 D-Dimer 1.08 H Microbiology 01/09/22 12:35 Blood Culture - Preliminary Blood SPECIMEN COLLECTED 01/09/22 12:30 Blood Culture - Preliminary Blood SPECIMEN COLLECTED Cardiac Studies: No Data to Display
[2022-01-09 15:56] LABS: Estmated Average Glucose 123; Hemoglobin A1C 5.9 % (4.0-6.0)
[2022-01-09 15:58] LABS: Procalcitonin 2.27 ng/mL (0-0.5); Thyroid Stimulating Hormone 1.29 uIU/mL (0.27-4.20)
[2022-01-09 16:08] LABS: Adenovirus Not Detected (NOT DETECT); Chlamydia Pneumoniae Not Detected (NOT DETECT); Coronavirus 229E,HKU1,NL63,OC4 Not Detected (NOT DETECT); Human Metapneumovirus Not Detected (NOT DETECT); Human Rhinovirus/Enterovirus Not Detected (NOT DETECT); Influenza A Not Detected (NOT DETECT); Influenza A H1 Not Detected (NOT DETECT); Influenza A H1-2009 Not Detected (NOT DETECT); Influenza A H3 Not Detected (NOT DETECT); Influenza B Not Detected (NOT DETECT); Mycoplasma Pneumoniae Not Detected (NOT DETECT); Parainfluenza Virus Type 1 Not Detected (NOT DETECT); Parainfluenza Virus Type 2 Not Detected (NOT DETECT); Parainfluenza Virus Type 3 Not Detected (NOT DETECT); Parainfluenza Virus Type 4 Not Detected (NOT DETECT); Respiratory Syncytial Virus A Not Detected (NOT DETECT); Respiratory Syncytial Virus B Not Detected (NOT DETECT); SARS-COV-2 Not Detected (NOT DETECT)
[2022-01-09 16:09] LABS: C Reactive Protein 54.2 mg/L (0.0-4.9)
[2022-01-09 16:32] LABS: Troponin 5 6HR 28.33 ng/L (0-15)
--- NOTE | 2022-01-09 16:35 | ECG_ITS ---
[facility] Test Date: 2022-01-09 Pat Name: Harpreet Pablo Department: Room: [facility] Gender: Male Collator: : 1945 Requested By: Freeman Miller Order Number: [id number] MD: Kuldip Wyatt M.D. Measurements Intervals [place] Rate: 86 P: -54 NV: 160 QRS: 11 QRSD: 159 T: 170 QT: 389 QTc: 467 Interpretive Statements ECTOPIC ATRIAL RHYTHM LEFT BUNDLE BRANCH BLOCK [120+ ms QRS DURATION, 80+ ms Q/S IN V1/V2, 85+ ms R IN I/aVL/V5/V6] Compared to ECG 01/09/2022 14:05:41 Ventricular premature complex(es) no longer present Electronically Signed On 01-11-2022 9:21:39 CDT by Kuldip Wyatt M.D. [id number]
[2022-01-09 16:36] LABS: Troponin 5 6HR Delta 3.33 ng/L (0-12)
--- NOTE | 2022-01-09 16:47 | PC.NURSE ---
1630 Pt to surgery per OR staff. Andexxa infusing per orders.
--- NOTE | 2022-01-09 17:29 | PM.OP ---
Operative Report Date of procedure: January 09, 2022 Pre-op diagnosis: Acute appendicitis with small amount of free air on CT scan Post-op diagnosis: Acute necrotic appendicitis Procedure done: Laparoscopic appendectomy Specimens removed/disposition: appendix Surgeon: Liam William Anesthesia: General Condition: stable Disposition: PACU Procedure: The patient was taken to the Operating Room and intubated under general anesthesia after antibiotic had been administered. A Arango catheter was placed and the abdomen was prepped and draped in a sterile manner. Using a 15 blade, a 1-cm infraumbilical incision was made and using open Kizzy technique, the peritoneal cavity was entered. A 12mm port with balloon was placed and 14 mm of pneumoperitoneum was created and 10-mm 30 degree scope was introduced. Two separate 5mm ports were placed in the suprapbuic and epigatric area under direct visualization. The appendix was noted in the right upper quadrant and appeared necrotic with moderate amount of purulent fluid in the paracolic gutters. Using [place] forceps, an opening was made in the mesoappendix near the base of the appendix. An Endo GOLDIE stapler 45mm long 3.5mm blue load was introduced to divide the appendix at it's base. Using electrocautery, the mesoappendix including the appendicular artery was divided. There was no bleeding noted and the staple line appeared intact. The right side of abdomen was irrigated with 4L of saline and an EndoCatch bag was introduced to remove the appendix. All three ports were removed under direct visualization and there was no bleeding noted on the port sites. 20 cc of 0.25% Marcaine was infiltrated at the port sites. The fascia at the umbilical port was closed using figure of eight 0-Vicryl sutures and subcutaneous tissue was approximated using 3-0 Vicryl and skin at all 3 port sites was closed using 4-0 Monocryl and Dermabond. The patient was extubated and transferred to recovery room in stable condition.
--- NOTE | 2022-01-09 18:08 | PC.NURSE ---
Pt returned from surgery at 1755. O2@10LNC in use. Pt moaning and breathing heavily. RT at bedside with breathing tx per MD order. Bipap placed per orders, 22/05 30%. VSS. Pt lethargic. 3 incision sites with dermabond. No drainage noted. Arango cath draining freely to BSD. Lung sounds coarse and wheezy to auscultation. Will monitor.
[2022-01-09] MEDS: piperacillin-tazobactam 3.375 GM in sodium chloride 0.9% (plus) 50 ML IV (18:23)
[2022-01-09] MEDS: FUROsemide 10 mg/mL SDV 4mL 40 MG IVP (18:28)
--- NOTE | 2022-01-09 18:48 | PC.NURSE ---
Pt became combative and attempting to climb out of bed and removed bipap. MD notified. orders for restraints, haldol and precedex received. Bilateral wrist restraints in place at this time. Will monitor.
[2022-01-09] MEDS: haloperidol inj 5 mg/mL INJ 1 mL 1 MG IM (19:01)
[2022-01-09] MEDS: dexmedeTOMIDine 0.9 % NaCL 400 MCG/100 ML PREMIX IV (19:02)
--- NOTE | 2022-01-09 19:20 | PC.NURSE ---
Pt. in bed with bipap in place currently attempting to pull out puente catheter and pull off bipap and get out of bed. Pt. is confused. Bilateral wrist restraints in place.
[2022-01-09] MEDS: budesonide 0.5 mg/2 mL Neb INHALATION (19:53)
--- NOTE | 2022-01-09 20:00 | PC.NURSE ---
Pt. is more relaxed now and will stir with stimulation. Pt. will moan out when palpates abdomen. Pt. is still breathing 40 breaths per minute with labored respirations and bipap in place while calm. Will continue to monitor.
--- NOTE | 2022-01-09 20:30 | PC.NURSE ---
Called Dr. Alejandra and informed of patient status. Recieved orders for radiology, lab work, and medication. Will continue to monitor .
--- NOTE | 2022-01-09 20:37 | XRR_ITS ---
PROCEDURE INFORMATION: Exam: XR Abdomen Exam date and time: 01/09/2022 9:10 PM Age: 76 years old Clinical indication: Other: Post appendectomy; Prior surgery; Surgery date: Post-operative (0-2 days) TECHNIQUE: Imaging protocol: XR of the abdomen. Views: Frontal supine view of the abdomen. 1 View. COMPARISON: CT angio chest w abd pel w con 01/09/2022 12:20 PM FINDINGS: Diaphragm: Elevated right hemidiaphragm. Gastrointestinal tract: Nonobstructive intestinal gas pattern demonstrated. Bones/joints: Degenerative spine changes are noted. XR/XR abdomen 1V* [id number] IMPRESSION: No acute abnormality demonstrated.
--- NOTE | 2022-01-09 20:37 | XRR_ITS ---
PROCEDURE INFORMATION: Exam: XR Chest Exam date and time: 01/09/2022 9:07 PM Age: 76 years old Clinical indication: Dyspnea; Additional info: Shortness of breath TECHNIQUE: Imaging protocol: XR of the chest. Views: 1 view. COMPARISON: CR (CHEST, ) 01/09/2022 10:48 AM FINDINGS: Lungs: Nonspecific increased interstitial lung markings. Mild compressive atelectasis at the right lung base. No consolidative pulmonary infiltrate noted. Pleural spaces: No pleural effusion. No pneumothorax. Heart/Mediastinum: No cardiomegaly. Diaphragm: Elevated right hemidiaphragm. Bones/joints: Unremarkable. XR/XR chest 1V [id number] IMPRESSION: 1. Nonspecific increased interstitial lung markings. Mild compressive atelectasis at the right lung base. No consolidative pulmonary infiltrate noted. 2. There is no interval change from the prior examination.
[2022-01-09 20:47] LABS: Blood Gas Allen Test Pos; Blood Gas Sample Site Radial, right; Blood Gas Sample Type Arterial; Ionized Calcium Level - ABG 1.2 mmol/L (1.1-1.4); Oxygen Device BIPAP; Total Hemoglobin 12.9 g/dL (14-18)
[2022-01-09] MEDS: acetaminophen 1,000 MG/100 ML PIGGYBACK 400 MG IV (20:51)
[2022-01-09 20:53] LABS: ABG PCO2 47.4 mmHg (35-45); ABG PH Result 7.28 (7.35-7.45); Alveolar-Arterial Oxygen Gradi 15.2 mmHg (5-10); Arterial Blood Gas Hematocrit 39.6 % (42-52); Base Excess ABG -4.4 mmol/L (-2.0-2.0); Carboxyhemoglobin 1.5 %THgb (0.4-20.1); HCO3 ABG 22.5 mmol/L (22-26); HGB O2 Sat 91.4 % (95-100); Oxygen Saturation ABG 93.8; PO2 ABG 73.5 mmHg (80.0-100.0); Potassium Level - ABG 5.1 mmol/L (3.5-5.0)
--- NOTE | 2022-01-09 21:30 | PC.NURSE ---
Precedex drip stopped due to blood pressure of 63/37.
[2022-01-09 21:59] LABS: Alanine Aminotransferase 19 U/L (0-41); Albumin Level 3.9 g/dL (3.5-5.2); Alkaline Phosphatase 56 IU/L (40-130); Anion Gap 19.1 (5-19); Aspartate Amino Transferase 20 U/L (0-40); Blood Urea Nitrogen 23 mg/dL (8-23); Calcium 8.9 mg/dL (8.5-10.5); Carbon Dioxide 23 mmol/L (22-29); Chloride 101 mmol/L (98-107); Globulin 2.5 g/dL (1.3-4.6); Glucose 134 mg/dL (65-115); Osmolality Calculated 292 mOsm/kg (285-295); Potassium 5.1 mmol/L (3.5-5.1); Sodium 138 mmol/L (136-145); Total Bilirubin 1.9 mg/dL (0.15-1.2); Total Protein 6.4 g/dL (6.6-8.7)
--- NOTE | 2022-01-09 22:10 | PC.NURSE ---
Called Dr. Reyes about updated CMP. Recieved orders.
--- NOTE | 2022-01-09 22:30 | PC.NURSE ---
Pt. has woken up and is answering questions appropriately. No distress or combativeness present.
--- NOTE | 2022-01-09 23:30 | PC.NURSE ---
Called Dr. richard and informed him of [facility] results that patient is fluid responsive and that map has improved to 51
--- NOTE | 2022-01-09 23:55 | PC.NURSE ---
DC restraints. Pt. is following directions and fully alert and oriented. Stated he will not pull at any lines or tubes.
[2022-01-10] VITALS (201 sets, daily range): BP systolic 85–140; BP diastolic 42–86; PULSE 82–124; RESP 17–46; TEMP 36.6–38.3; O2SAT 57–97
[2022-01-10] MEDS: piperacillin-tazobactam 3.375 GM in sodium chloride 0.9% (plus) 50 ML IV ×3 (02:43→21:43)
[2022-01-10] MEDS: ipratropium-albuterol 3 mL Neb INHALATION ×5 (03:10→23:00)
[2022-01-10] MEDS: pantoprazole 40 mg SDV IVP ×2 (05:02→16:41)
[2022-01-10 05:35] LABS: Basophils # 0.1 10^3/uL (0.0-0.1); Basophils % 0.4 %; Eosinophils # 0.1 10^3/uL (0.0-0.8); Eosinophils % 0.3 %; Hematocrit 37.5 % (42.0-52.0); Hemoglobin 12.3 g/dL (11.7-16.6); Lymphocytes % 3.5 %; Mean Corpuscular HGB Conc 32.8 g/dL (30.0-36.0); Mean Corpuscular Hemoglobin 35.9 pg (28.0-34.0); Mean Corpuscular Volume 109.3 fl (80-94); Mean Platelet Volume 9.7 fL (7.4-10.4); Monocytes # 2.3 10^3/uL (0.2-0.9); Monocytes % 8.5 %; Neutrophils # 23.21 10^3/uL (1.8-7.7); Neutrophils % 85.9 %; Nucleated Red Blood Cells % 0 %; Platelet Count 161 10^3/cmm (130-400); Red Blood Count 3.43 10^6/uL (4.1-5.3); Red Cell Distribution Width 13.9 % (12.1-15.1); White Blood Count 27.1 10^3/uL (4.0-10.0)
[2022-01-10 05:42] LABS: Lactate (Lactic Acid level) 2.6 mmol/L (0.5-2.2)
[2022-01-10 05:51] LABS: INR 1.48 (0.8-1.2)
[2022-01-10 05:53] LABS: NT Pro B Type Natriuretic Pept 11442 pg/mL (0-450); Procalcitonin 99.63 ng/mL (0-0.5)
[2022-01-10 05:58] LABS: Slide Review Slide Review Perform
[2022-01-10 06:04] LABS: Alanine Aminotransferase 28 U/L (0-41); Albumin Level 3.7 g/dL (3.5-5.2); Alkaline Phosphatase 66 IU/L (40-130); Anion Gap 20.7 (5-19); Aspartate Amino Transferase 108 U/L (0-40); Blood Urea Nitrogen 30 mg/dL (8-23); C Reactive Protein 282.7 mg/L (0.0-4.9); Calcium 8.6 mg/dL (8.5-10.5); Carbon Dioxide 20 mmol/L (22-29); Chloride 102 mmol/L (98-107); Globulin 2.7 g/dL (1.3-4.6); Glucose 142 mg/dL (65-115); Magnesium 1.8 mg/dL (1.7-2.3); Osmolality Calculated 295 mOsm/kg (285-295); Phosphorus 4.7 mg/dL (2.5-4.5); Potassium 4.7 mmol/L (3.5-5.1); Sodium 138 mmol/L (136-145); Total Bilirubin 2.3 mg/dL (0.15-1.2); Total Protein 6.4 g/dL (6.6-8.7)
[2022-01-10] MEDS: budesonide 0.5 mg/2 mL Neb INHALATION ×2 (08:26→19:59)
[2022-01-10] MEDS: magnesium sulfate premix 2 GM/50 ML PIGGYBACK IV (09:05)
[2022-01-10] MEDS: enoxaparin 40 mg/0.4 mL Syringe SUBCUT (09:06)
[2022-01-10] MEDS: atorvastatin 40 mg Tablet 80 MG PO (09:06)
[2022-01-10] MEDS: midodrine 5 mg TABLET 10 MG PO ×3 (09:06→21:43)
[2022-01-10] MEDS: HYDROmorphone 1 mg/mL INJ 1 mL IVP ×2 (09:42→16:46)
--- NOTE | 2022-01-10 12:13 | PC.CHAP ---
Pastoral Care Encounter/Spiritual Assessment Type of Contact [] Declined monitoring manager visit [] Patient/Family/Request visit [] Outpatient visit [] Follow-up visit [] Physician referral [] Code/Alert [x] Routine visit [] Staff referral [] Actively dying [] Patient sleeping [] Family support [] [] Out of room [] Palliative care [] [] Receiving care in room [] Pre-surgical visit [] Trauma [] Long length of stay [x] ICU visit [] Other: Relational/Emotional Strength [] Patient feels connected with others/family/visitors/staff [] Distress [] Loneliness/isolation [] Abandonment Spirituality of Patient [] Person of Hilary [] Attends Scientology of their Hilary [] Believes in Prayer [] Reads Bible or Zoroastrian materials [] There are Spiritual issues to be addressed 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 [x] Prayer [] Active listening [] Non-anxious presence [] Spiritual/emotional support [] Crisis/trauma care [] Spiritual counseling [] Bereavement support [] Provided bereavement packet [] Provided Bible/devotional materials [] Provided toy/stuffed animal, coloring book to patient or family member [] Provided Communion [] Anointing/[place] [] Salvation [x] Completed spiritual assessment [] Other: Impact on Illness or Injury [] Angry [] Fearful [] Anxious [] Often cries [] Exhaustion [] Unable to work [] Unable to attend taoism [] Unable to walk/stand [] Unable to read [] Unable to drive [] Unable to eat/drink [] Unable to sleep [] Unable to be with family [] Patient intubated [] Other: Summary Time spent with patient
[2022-01-10] MEDS: acetaminophen 325 mg Tablet 650 MG PO (13:31)
--- NOTE | 2022-01-10 14:21 | P.PN_ITS ---
Subjective Subjective: Patient was seen this morning, he is in bed, continue to complain of abdominal pain, but feels a lot better, abdomen is distended, fevers overnight, is on 6 L Vitals/I&O/Wt Last Vital Signs Temp 101 F H 01/10/22 13:37 Pulse 110 H 01/10/22 12:00 Resp 24 H 01/10/22 12:00 BP 114/61 01/10/22 12:00 Pulse Ox 90 01/10/22 13:15 01/09/22 01/10/22 01/10/22 22:59 06:59 14:59 Intake Total 1123.066 / 1123.066 50 / 1173.066 50 / 50 Output Total 200 / 200 150 / 350 150 / 150 Balance 923.066 / 923.066 -100 / 823.066 -100 / -100 Weight last 48 hrs Weight 110.223 kg Weight 110.223 kg Physical Exam Const: COMMON NORMALS: no acute distress and patient oriented x3 Resp: COMMON NORMALS: normal respiratory effort, No retractions and No use of accessory muscles AUSCULTATION: wheezes Cardio: COMMON NORMALS: regular rate, regular rhythm, S1 normal heart sound present and S2 normal heart sound present RATE: regular rate RHYTHM: regular rhythm HEART SOUNDS: S1 normal heart sound present and S2 normal heart sound present GI: COMMON NORMALS: Normal to inspection, nondistended, normoactive bowel sounds present, Soft to palpation, non-tender and No hepatosplenomegaly present PALPATION: Yes Soft to palpation and Yes No hepatosplenomegaly present Extremity: COMMON NORMALS: no pedal edema Neuro: COMMON NORMALS: patient oriented x3 Psych: COMMON NORMALS: mental status grossly normal Urinary Catheter Management: Arango: Cath Placed During This Visit: yes Reason for Continuing Indwelling Catheter: Accurate Measurement of Urinary Output in Critically Ill Patients Urinary Catheter Date of Insertion: 01/09/22 Urinary Catheter Time of Insertion: 16:45 Data : 01/10/22 04:55 01/10/22 04:55 Micro: Microbiology 01/09/22 12:35 Blood Culture - Preliminary Blood NEGATIVE TO DATE 01/09/22 12:30 Blood Culture - Preliminary Blood NEGATIVE TO DATE A&P Assessment and plan (1) Appendicitis with perforation: Status: Acute (2) CAD (coronary artery disease): Status: Acute (3) Sepsis: Status: Acute (4) ROXANA (acute kidney injury): Status: Acute (5) NSTEMI (non-ST elevated myocardial infarction): Status: Acute (6) Systolic CHF: Status: Acute (7) COPD exacerbation: Status: Acute (8) Acute respiratory failure with hypoxia: Status: Acute Plan Acute appendicitis with small amount of free air seen on CT an sepsis -Acute necrotic appendicitis, status post laparoscopic appendectomy -Currently on clears -Febrile, WBC 27.1, CRP 22, pro-Skip 99.63 -Continue Zosyn and vancomycin for antibiotic coverage -Has received fluid boluses blood, avoid further fluid due to concerns for fluid overload -Blood pressures remain soft start midodrine 10 3 times daily -Consider Levophed to avoid fluid overload -Maintain map around 65 -Telemetry monitoring -Serial abdominal exams -Status post andexxa for reversal of Eliquis, in preparation for surgery -Admit to ICU -Full code -SCDs, Lovenox for DVT prophylaxis Acute hypoxia respiratory failure shortness of breath -Combination of systolic and COPD exacerbation -For now we will 1 dose of Lasix yesterday, 1 dose of Solu-Medrol -Monitor respiratory status closely is on his base home 3.5 L of oxygen -Continue nebulizer treatments, budesonide -We will reexamine decide if he needs Lasix, creatinine 3.0 CAD with elevated troponins -Serial EKGs, serial troponins, telemetry monitoring Elevated lactic acid, secondary to acute appendicitis perforation above Sepsis secondary acute appendicitis, perforation as above Attestations Medical Necessity Statement*: Patient requires hospitalization for acute necrotic pancreatitis, acute hypoxic respiratory failure, critical care time spent over 35 minutes Coding Level of Care Code Acute Wood Web Weaving Machine Operator for [facility]wd Diagnoses Appendicitis with perforation K35.32 CAD (coronary artery disease) I25.10 Sepsis A41.9 ROXANA (acute kidney injury) N17.9 NSTEMI (non-ST elevated myocardial infarction) I21.4 Systolic CHF I50.20 COPD exacerbation J44.1 Acute respiratory failure with hypoxia J96.01
[2022-01-10] MEDS: vancomycin 1,500 MG/300 ML PIGGYBACK 200 MG IV (14:38)
[2022-01-11] VITALS (113 sets, daily range): BP systolic 96–177; BP diastolic 61–116; PULSE 88–165; RESP 16–61; TEMP 36.4–37.1; O2SAT 85–94; BMI 33.9
[2022-01-11] MEDS: ipratropium-albuterol 3 mL Neb INHALATION ×5 (03:12→20:37)
[2022-01-11 04:00] LABS: Basophils # 0.1 10^3/uL (0.0-0.1); Basophils % 0.3 %; Eosinophils # 0.4 10^3/uL (0.0-0.8); Eosinophils % 1.3 %; Hematocrit 42.2 % (42.0-52.0); Hemoglobin 13.3 g/dL (11.7-16.6); Lymphocytes # 0.7 10^3/uL (0.8-4.8); Lymphocytes % 2.3 %; Mean Corpuscular HGB Conc 31.5 g/dL (30.0-36.0); Mean Corpuscular Volume 111.1 fl (80-94); Mean Platelet Volume 9.5 fL (7.4-10.4); Monocytes # 1.4 10^3/uL (0.2-0.9); Neutrophils # 25.82 10^3/uL (1.8-7.7); Neutrophils % 90.2 %; Nucleated Red Blood Cells % 0 %; Platelet Count 161 10^3/cmm (130-400); Red Cell Distribution Width 14.1 % (12.1-15.1); White Blood Count 28.6 10^3/uL (4.0-10.0)
[2022-01-11 04:16] LABS: INR 1.58 (0.8-1.2)
[2022-01-11 04:17] LABS: Lactate (Lactic Acid level) 1.8 mmol/L (0.5-2.2)
[2022-01-11 04:27] LABS: NT Pro B Type Natriuretic Pept 17704 pg/mL (0-450)
[2022-01-11 04:32] LABS: Slide Review Slide Review Perform
[2022-01-11 04:38] LABS: Alanine Aminotransferase 35 U/L (0-41); Albumin Level 3.2 g/dL (3.5-5.2); Alkaline Phosphatase 71 IU/L (40-130); Blood Urea Nitrogen 56 mg/dL (8-23); Calcium 8.8 mg/dL (8.5-10.5); Carbon Dioxide 16 mmol/L (22-29); Chloride 97 mmol/L (98-107); Globulin 3.6 g/dL (1.3-4.6); Glucose 220 mg/dL (65-115); Magnesium 2.6 mg/dL (1.7-2.3); Osmolality Calculated 300 mOsm/kg (285-295); Phosphorus 4.5 mg/dL (2.5-4.5); Sodium 134 mmol/L (136-145); Total Bilirubin 2.6 mg/dL (0.15-1.2); Total Protein 6.8 g/dL (6.6-8.7)
[2022-01-11 04:39] LABS: Aspartate Amino Transferase 166 U/L (0-40)
[2022-01-11] MEDS: pantoprazole 40 mg SDV IVP ×2 (04:46→16:36)
[2022-01-11] MEDS: piperacillin-tazobactam 3.375 GM in sodium chloride 0.9% (plus) 50 ML IV ×2 (04:46→13:19)
[2022-01-11 05:33] LABS: Procalcitonin > 100.00 ng/mL (0-0.5)
--- NOTE | 2022-01-11 06:00 | XR_ITS ---
WS: [id number] XR KUB portable [id number] REASON FOR EXAM: distention FINDINGS: No free air or retroperitoneal air. Opacities in the right lower lung again noted. Gross gastric distention significantly increased compared to the previous examination of 01/09/2022. The more distal bowel pattern is unremarkable. No urinary tract calculi or other significant calcification. No mass identified. XR/XR KUB portable [id number] IMPRESSION: Significant gaseous distention of the stomach.
--- NOTE | 2022-01-11 06:56 | ANE.PACU2 ---
Inpatient post-anesthesia follow up: Airway intact: Yes Vital signs: Temperature 97.6 F Pulse Rate 102 Respiratory Rate 25 Blood Pressure 146/93 Pulse Oximetry 90 Oxygen Delivery Me thod Nasal Cannula Oxygen Flow Rate 6 Fraction of Inspir ed Oxygen 35 Hydration adequate: Yes Nausea and vomiting: No Pain level: 1 Mental status: Baseline Additional Comments: Late entry for care on DOS. Taken to ICU on full monitors, spontaneously breathing, 2 LPM NC O2. VSS throughout. In pain, additional narcotic administered in ICU. Handoff report given to TOWER EQUIPMENT INSTALLER including fluids in/out, medications administered, and operative course. Report accepted.
--- NOTE | 2022-01-11 07:00 | XR_ITS ---
WS: [id number] XR chest 1V portable [id number] REASON FOR EXAM: sob FINDINGS: Coarse reticular and patchy groundglass density and focal areas of consolidation in the rig ht lower lung are more prominent than on the previous examination of 01/09/2022. The reticular intersti tial opacities in the left lower lung are relatively unchanged. Significant elevation of the right hemidiaphragm. No new findings. XR/XR chest 1V portable [id number] IMPRESSION: Increased opacities in the right lower lung compared to previous study.
[2022-01-11] MEDS: budesonide 0.5 mg/2 mL Neb INHALATION ×2 (07:44→20:37)
[2022-01-11] MEDS: midodrine 5 mg TABLET 10 MG PO (08:25)
[2022-01-11] MEDS: atorvastatin 40 mg Tablet 80 MG PO (08:25)
[2022-01-11] MEDS: heparin 5,000 unit/mL INJ 1 mL 5000 UNIT SUBCUT (08:25)
--- NOTE | 2022-01-11 08:55 | PM.CONSULT ---
Providers/Reason For Consult Consulting Physician/Specialty*: cinthya vargas md / telenephrology Reason for Consult*: ROXANA on CKD Requesting Physician: Dr Madhav Castaneda Attending Physician: Richard Castaneda MD Primary Care Provider: Jason Rivas MD History of Present Illness History of Present Illness Harpreet Pablo is a 76 year old male h/o emphysema/ COPD on home nc02, a fib, CAD, chronic systolic CHF- EF 40%, CKD stage 3- baseline cr approx 1.3- 1.5 mg/dl. Pt was admitted on 01/09/22 w/ acute perforated appendicitis, hypotension. He had a CT w/ contrast on admission. Pt went to OR on 01-09-22 lap appendectomy. He received zosyn and vanco iv abx. Renal is called for oliguric ROXANA. Cr went from 1.5 on 01/09 to 2.3 on 01/09 to 3 on 01/10 to 4.7 mg/dl today. pt c/o abd pain, no flatus or BM, + belching. +SOB. Review of Systems Narrative: sob, abd pain, nausea, gas, no flatus or bm, dec abd pain, some edema Medications/Allergies Home Medications Medication Instructions Recorded Confirmed Last Taken Type albuterol sulfate 90 mcg/actuation 2 puff INHALATION Q6H PRN 01/09/22 01/09/22 Unknown History aerosol inhaler apixaban 5 mg tablet (Eliquis) 5 mg PO BID 01/09/22 01/09/22 01/09/22 History azithromycin 250 mg tablet See Rx Instructions .ROUTE .COMPLEX 01/09/22 01/09/22 01/07/22 History bupropion HCl 150 mg 24 hr tablet, 150 mg PO DAILY 01/09/22 01/09/22 01/09/22 History extended release ferrous sulfate 325 mg (65 mg 325 mg PO DAILY 01/09/22 01/09/22 01/09/22 History iron) tablet (FeroSul) fluticasone propionate 50 2 spray INTRANASAL DAILY PRN 01/09/22 01/09/22 Unknown History mcg/actuation nasal spray,suspension furosemide 40 mg tablet 40 mg PO DAILY 01/09/22 01/09/22 01/09/22 History isosorbide mononitrate 120 mg 120 mg PO DAILY 01/09/22 01/09/22 01/09/22 History tablet,extended release 24 hr lisinopril 5 mg tablet 5 mg PO DAILY 01/09/22 01/09/22 01/09/22 History metoprolol succinate 50 mg 50 mg PO DAILY 01/09/22 01/09/22 01/09/22 History tablet,extended release 24 hr pantoprazole 40 mg tablet,delayed 40 mg PO DAILY 01/09/22 01/09/22 01/09/22 History release phenylephrine HCl 0.5 % nasal mist 1 spray INTRANASAL Q8H PRN 01/09/22 01/09/22 Unknown History rosuvastatin 40 mg tablet 20 mg PO DAILY 01/09/22 01/09/22 01/08/22 History tiotropium 2.5 mcg-olodaterol 2.5 1 puff INHALATION DAILY 01/09/22 01/09/22 01/09/22 History mcg/actuation mist for inhalation (Stiolto Respimat) Allergies Allergy/AdvReac Type Severity Reaction Status Date / Time No Known Allergies Allergy Unverified 01/09/22 12:52 Current Medications Generic Name Dose Route Start Last Admin Trade Name Freq PRN Reason Stop Dose Admin Acetaminophen 650 mg 01/09/22 14:59 01/10/22 13:31 Acetaminophen 325 Mg Tablet PO 650 mg Q6H PRN Administration Mild/Mod Pain Or Temp >/= 101 Albuterol/Ipratropium 3 ml 01/09/22 16:00 01/11/22 07:44 Ipratropium-Albuterol 3 Ml Neb INHALATION 3 ml Q4H.RESPIRATORY NORRIS Administration Atorvastatin Calcium 80 mg 01/10/22 09:00 01/11/22 08:25 Atorvastatin 40 Mg Tablet PO 80 mg DAILY NORRIS Administration Budesonide 0.5 mg 01/09/22 20:00 01/11/22 07:44 Budesonide 0.5 Mg/2 Ml Neb INHALATION 0.5 mg BID.RESPIRATORY NORRIS Administration Heparin Sodium (Porcine) 5,000 unit 01/11/22 08:00 01/11/22 08:25 Heparin 5,000 Unit/Ml Inj 1 Ml SUBCUT 5,000 unit Q12H NORRIS Administration Hydromorphone HCl 1 mg 01/10/22 09:19 01/10/22 16:46 Hydromorphone 1 Mg/Ml Inj 1 Ml IVP 1 mg Q4H PRN Administration pain Piperacillin Sod/Tazobactam 50 mls @ 12.5 mls/hr 01/09/22 19:00 01/11/22 04:46 Sod 3.375 gm/ Sodium Chloride IV 12.5 mls/hr Q8H NORRIS Administration Protocol dexmedeTOMIDine 0.9 % NaCL 400 mcg in 100 mls @ 0 mls/hr 01/09/22 19:00 01/09/22 21:45 Precedex IV 0 mcg/kg/hr .Q0M NORRIS 0 mls/hr Titration Protocol Per Protocol Vancomycin/PEG/NADA/Lysine/Water 1,500 mg in 300 mls @ 200 mls/hr 01/10/22 15:00 01/10/22 14:38 Vancocin IV 200 mls/hr Q36H NORRIS Administration Pantoprazole Sodium 40 mg 01/09/22 16:00 01/11/22 04:46 Pantoprazole 40 Mg Sdv IVP 40 mg Q12H NORRIS Administration PFSH Acute PFSH: Medical History Atrial fibrillation CAD (coronary artery disease) Chronic kidney disease Emphysema lung Systolic CHF Surgical History No pertinent past surgical history Family History Other CAD (coronary artery disease) Social History Substance/Drug Use: never Vitals/I&O/Wt Last Vital Signs Temp 98.4 F 01/11/22 08:00 Pulse 100 01/11/22 08:00 Resp 16 01/11/22 07:46 BP 177/88 01/11/22 08:00 Pulse Ox 93 01/11/22 07:46 01/10/22 01/11/22 01/11/22 22:59 06:59 14:59 Intake Total 50 / 100 50 / 150 130 / 130 Output Total 350 / 500 200 / 700 Balance -300 / -400 -150 / -550 130 / 130 Weight last 48 hrs Weight 110.223 kg Weight 110.223 kg Physical Exam Narrative: SOB on nc 02, tachycardic- reg heent- nc/at, eomi, anicteric neck supple lungs b/l exp wheezes heart tachy, +OSCAR< + s1, s2 abd soft, tender, poor bs ext 1+ edema neuro- a,a, o x 3 Urinary Catheter Management: Arango: Cath Placed During This Visit: yes Reason for Continuing Indwelling Catheter: Accurate Measurement of Urinary Output in Critically Ill Patients Urinary Catheter Date of Insertion: 01/09/22 Urinary Catheter Time of Insertion: 16:45 Data : 01/11/22 03:43 01/11/22 03:43 Micro: Microbiology 01/09/22 12:35 Blood Culture - Preliminary Blood NEGATIVE TO DATE 01/09/22 12:30 Blood Culture - Preliminary Blood NEGATIVE TO DATE A&P Assessment and plan (1) ROXANA (acute kidney injury): 76 yr old man chronic systolic chf, obesity, htn, COPD- home 02 dep, CKD stage 3 1. acute appendicitis- perforated- s/p lap choley and on renal dose abx -remains w/ a leukocytosis 2. CKD stage 3a- from obesity, dm, htn, CRS 3. ROXANA- ATN from sharlene-i, hypotension, sepsis -check urine studies check c3, c4, ck check renal us -lasix 4. mixed resp and resp acidosis- repeat ABG 5. hyponatremia from ROXANA/ CHF/ pain -urine lytes -check tsh 6. DM control 7. inc bnp and h/o chf- lasix and check echo 8. inc ast- hold statin seen and examined w/ RN- telehealth visit informed consent for telehealth obtained time spent 50 min Status: Acute Plan see above Consult Attestations Medical Necessity Statement: ROXANA, s/p acute perf appy- sepsis Time Spent in Patient Care: Greater than 35 minutes (>than 50% of time spent in counselling and/or direct pt care on unit). 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
--- NOTE | 2022-01-11 09:11 | USCV_ITS ---
Harpreet Pablo Age: 76 Gender: M : 1945 Exam Date: 01/11/2022 10:18 Ordering Phys: Jai Chacon MD Technologist: RAYMUNDO [place] [facility] [place]: CHF BP: 142 / 90 HR: 112 Rhythm: Atrial fibrillation Technical Quality: Technically difficult study MEASUREMENTS (Male / Female) Normal Values 2D ECHO LVOT Diameter 2.0 cm LV Ejection Fraction MOD 2C 56.4 % LV Ejection Fraction 2C AL 55.1 % LA Diameter 3.7 cm LA Width 2.8 cm LA Height 4.8 cm RA Width 2.9 cm RA Height 3.5 cm Aorta at Sinotubular Diameter 2.6 cm M-MODE Aortic Annulus Diameter 3.6 cm LA Ao Ratio MM 1.0 MV E Point Septal Separation 1.0 cm DOPPLER AV Peak Velocity 263.3 cm/s LVOT Peak Velocity 80.0 cm/s AV Area Cont Eq vti 1.2 cm squared AV Area Cont Eq pk 0.9 cm squared MV Peak Velocity 165.0 cm/s MV Area PHT 6.7 cm squared MV E' Velocity 67.5 cm/s Mitral E to MV E' Ratio 9.8 Mitral E to LV E' Lateral Ratio 10.1 Mitral E to LV E' Septal Ratio 9.5 FINDINGS Left Ventricle Normal left ventricular cavity size. Mildly decreased left ventricular systolic function. Left ventricular ejection fraction is estimated at 42 % by modified biplane method and 40- 45% visually. There seems to be moderate hypokinesis of mid to apical anteroseptal and apical perera. Abnormal septal motion consistent with conduction abnormality. Right Ventricle Normal right ventricular size and systolic function. RVSP could not be calculated due to incomplete tricuspid regurgitation velocity profile. Right Atrium Normal right atrial size. Left Atrium Moderately increased left atrial size. Mitral Valve Structurally normal mitral valve. Aortic Valve Aortic valve not well visualized. Possible mild aortic stenosis with peak velocity 2.6 m/s, peak gradient 28 mmHg, mean gradient 13 mmHg. Aortic valve area by continued equation of 1.2 cm squared (LVOT not well visualized). Tricuspid Valve Structurally normal tricuspid valve. Trace tricuspid valve regurgitation. Pulmonic Valve Pulmonic valve not well visualized. Pericardium No pericardial effusion. Aorta Normal-sized aortic root. CONCLUSIONS 1. This is a technically difficult study. Optison was used per protocol. 2. Normal left ventricular cavity size. Mildly decreased left ventricular systolic function. Left ventricular ejection fraction is estimated at 42 % by modified biplane method and 40- 45% visually. There seems to be moderate hypokinesis of mid to apical anteroseptal and apical perera. Abnormal septal motion consistent with conduction abnormality. 3. Normal right ventricular size and systolic function. 4. Possible mild aortic stenosis with peak velocity 2.6 m/s, peak gradient 28 mmHg, mean gradient 13 mmHg. Aortic valve area by continued equation of 1.2 cm squared (LVOT not well visualized). 5. No prior similar studies to compare. Tory Haskins MD (Electronically Signed) Final Date: 11 January 2022 16:49 S
--- NOTE | 2022-01-11 09:12 | US_ITS ---
WS: [id number] ULTRASOUND RENAL TECHNIQUE: Ultrasound examination of both kidneys. CLINICAL INFORMATION: belkis COMPARISON: None. FINDINGS: Technically difficult examination due to body habitus and pain RIGHT: Right kidney is normal in size and appearance. Echogenicity: Normal. Cortical thickness: 2.0 cm; Normal. Hydronephrosis: None. Perinephric fluid: None. Right kidney measures: 10.5 cm x 6.8 cm x 5.2 cm. LEFT: Left kidney is normal in size and appearance. Echogenicity: Normal. Cortical thickness: 2.5 cm; Normal. Hydronephrosis: None. Perinephric fluid: None. Left kidney measures: 13.4 cm x 6.6 cm x 6.6 cm. Normal visualized aorta. US/US renal BI* [id number] IMPRESSION: Technically difficult study. Grossly normal renal ultrasound.
[2022-01-11 10:06] LABS: ABG PH Result 7.29 (7.35-7.45); Arterial Blood Gas Hematocrit 39.3 % (42-52); Base Excess ABG -7.7 mmol/L (-2.0-2.0); HCO3 ABG 18.2 mmol/L (22-26); Ionized Calcium Level - ABG 1.1 mmol/L (1.1-1.4); PO2 ABG 61.7 mmHg (80.0-100.0)
[2022-01-11 10:07] LABS: Alveolar-Arterial Oxygen Gradi 18.7 mmHg (5-10); Blood Gas Sample Site Brachial, left; Oxygen Device NC
[2022-01-11 10:13] LABS: Thyroid Stimulating Hormone 0.69 uIU/mL (0.27-4.20); Uric Acid 9.7 mg/dL (3.4-7.0)
--- NOTE | 2022-01-11 10:14 | PC.NURSE ---
ultrasound at beside.
[2022-01-11] MEDS: perflutren protein-a microsphr 0.22 mg/mL SDV 3 mL IV (10:48)
[2022-01-11] MEDS: FUROsemide 10 mg/mL SDV 10mL 60 MG IVP ×2 (10:58→22:18)
[2022-01-11] MEDS: HYDROcodone-acetaminophen 5-325 mg Tablet 1 TAB PO ×2 (10:58→14:58)
[2022-01-11] MEDS: linezolid premix 600 MG/300 ML PREMIX 300 MG IV (10:59)
[2022-01-11 11:21] LABS: Bilirubin Urine Neg (Negative); Blood Urine 3+ (Negative); Glucose Urine UA Trace (Normal); Ketones Urine Negative (Negative); Leukocyte Esterase Urine Negative (Negative); Nitrate Urine Negative (Negative); Protein Urine 1+ (Negative); Specific Gravity, Urine 1.015 (1.005-1.030); Urine Appearance Hazy (CLEAR); Urine Color Yellow (Yellow); Urobilinogen Urine Norm (Negative); pH Urine 5 (5-7)
[2022-01-11 11:37] LABS: Potassium, Radom Urine 59 mmol/L; Urine Random Sodium 36 mmol/L
[2022-01-11 11:39] LABS: Urine Random Chloride 12 mmol/L
[2022-01-11 11:40] LABS: Add Urine Culture? Yes; Amorphous Sediment Urine 4+ /hpf; RBC Urine 40-50 /hpf (0-2); Squamous Epithelial Cell Urine 0-4 /hpf (0-5); WBC Urine 0-4 /hpf (0-5)
[2022-01-11 12:53] LABS: Blood Gas Operator Identificat Anonymous; Blood Gas Sample Type CalVer; Carboxyhemoglobin 6.9 %THgb (0.4-20.1); HGB O2 Sat 41.5 % (95-100); Methemoglobin 29.9 % (0.4-1.5); Oxygen Saturation ABG 65.6; Potassium Level - ABG 13.6 mmol/L (3.5-5.0); Total Hemoglobin 23.1 g/dL (14-18)
--- NOTE | 2022-01-11 13:16 | PM.PN ---
Subjective Subjective: Patient was seen this morning, denies any fevers, no chills, abdomen remains distended, is not passing gas, has not had a bowel movement, he is on 5 L, he did get sleep overnight, denies any shortness of breath Vitals/I&O/Wt Last Vital Signs Temp 98.4 F 01/11/22 12:00 Pulse 115 H 01/11/22 12:00 Resp 24 H 01/11/22 12:00 BP 177/88 01/11/22 12:00 Pulse Ox 88 L 01/11/22 12:00 01/10/22 01/11/22 01/11/22 22:59 06:59 14:59 Intake Total 50 / 100 50 / 150 130 / 130 Output Total 350 / 500 200 / 700 Balance -300 / -400 -150 / -550 130 / 130 Weight last 48 hrs Weight 110.223 kg Weight 110.223 kg Physical Exam Const: COMMON NORMALS: no acute distress and patient oriented x3 Resp: COMMON NORMALS: normal respiratory effort, No retractions and No use of accessory muscles AUSCULTATION: wheezes Cardio: COMMON NORMALS: regular rate, regular rhythm, S1 normal heart sound present and S2 normal heart sound present RATE: regular rate RHYTHM: regular rhythm HEART SOUNDS: S1 normal heart sound present and S2 normal heart sound present GI: INSPECTION: Yes abdominal distension AUSCULTATION: Yes Hypoactive bowel sounds present PALPATION: Yes Tenderness to palpation present (GI) Extremity: COMMON NORMALS: no pedal edema Neuro: COMMON NORMALS: patient oriented x3 Psych: COMMON NORMALS: mental status grossly normal Urinary Catheter Management: Arango: Cath Placed During This Visit: yes Reason for Continuing Indwelling Catheter: Accurate Measurement of Urinary Output in Critically Ill Patients Urinary Catheter Date of Insertion: 01/09/22 Urinary Catheter Time of Insertion: 16:45 Data : 01/11/22 03:43 01/11/22 03:43 Micro: Microbiology 01/09/22 12:35 Blood Culture - Preliminary Blood NEGATIVE TO DATE 01/09/22 12:30 Blood Culture - Preliminary Blood NEGATIVE TO DATE A&P Assessment and plan (1) Appendicitis with perforation: Status: Acute (2) CAD (coronary artery disease): Status: Acute (3) Sepsis: Status: Acute (4) ROXANA (acute kidney injury): Status: Acute (5) NSTEMI (non-ST elevated myocardial infarction): Status: Acute (6) Systolic CHF: Status: Acute (7) COPD exacerbation: Status: Acute (8) Acute respiratory failure with hypoxia: Status: Acute Plan Acute appendicitis with small amount of free air seen on CT an sepsis -Acute necrotic appendicitis, status post laparoscopic appendectomy -Currently on clears -Febrile, WBC 20.6 -Continue Zosyn and vancomycin for antibiotic coverage -Has received fluid boluses blood, avoid further fluid due to concerns for fluid overload -Consider Levophed to avoid fluid overload -Maintain map around 65 -Telemetry monitoring -Serial abdominal exams -Status post andexxa for reversal of Eliquis, in preparation for surgery -Admit to ICU -Full code -SCDs, Lovenox for DVT prophylaxis Acute hypoxia respiratory failure shortness of breath -Combination of systolic and COPD exacerbation -We will receive Lasix today, 1 dose of Solu-Medrol -Monitor respiratory status closely is on 5 L -Continue nebulizer treatments, budesonide Acute renal failure on chronic kidney disease -Creatinine 4.7 -Currently receiving Lasix -Monitor renal function monitor urine output -Nephrology consulted -Renal ultrasound CAD with elevated troponins -Serial EKGs, serial troponins, telemetry monitoring Atrial fibrillation -Start on heparin drip -Start Toprol 25 twice daily Elevated lactic acid, secondary to acute appendicitis perforation above Sepsis secondary acute appendicitis, perforation as above Attestations Medical Necessity Statement*: Patient requires hospitalization for acute respiratory failure, A. fib, ileus, necrotic appendicitis Coding Level of Care Code Acute Respiratory Therapist Assistant for [facility] Diagnoses Appendicitis with perforation K35.32 CAD (coronary artery disease) I25.10 Sepsis A41.9 ROXANA (acute kidney injury) N17.9 NSTEMI (non-ST elevated myocardial infarction) I21.4 Systolic CHF I50.20 COPD exacerbation J44.1 Acute respiratory failure with hypoxia J96.01
[2022-01-11] MEDS: metoprolol tartrate 25 mg Tablet PO (13:20)
[2022-01-11] MEDS: heparin drip 25,000 UNIT/500 ML PREMIX 68.34 UNIT IV (13:21)
--- NOTE | 2022-01-11 14:56 | PC.NURSE ---
took patient for a afternoon walk per patient request. With the assistance of a RN student, the patient walked from his room to the double doors at the end of the batista and back. Patient tolerated the walk okay, but not well. Patient became pale in color and breathing hard. once we got the patient back in the chair and hooked him back up to the vitals machine I alerted the nurse and she came and evaluated him.
[2022-01-11] MEDS: dilTIAZem 60 mg Tablet PO ×2 (15:18→22:18)
--- NOTE | 2022-01-11 15:30 | PM.PN ---
Subjective Subjective: Patient denies significant abdominal pain, nausea, vomiting, has been belching a lot. No flatus or BM Medications: Reviewed: Yes Vitals/I&O/Wt Last Vital Signs Temp 98.4 F 01/11/22 14:00 Pulse 109 H 01/11/22 15:24 Resp 22 H 01/11/22 15:24 BP 177/88 01/11/22 14:00 Pulse Ox 86 L 01/11/22 15:24 01/11/22 01/11/22 01/11/22 06:59 14:59 22:59 Intake Total 50 / 150 480 / 480 Output Total 200 / 700 Balance -150 / -550 480 / 480 Weight last 48 hrs Weight 243 lb Physical Exam Narrative: Abdomen: Soft, distended, minimally tender, incision clean dry and intact Urinary Catheter Management: Arango: Cath Placed During This Visit: yes Reason for Continuing Indwelling Catheter: Accurate Measurement of Urinary Output in Critically Ill Patients Urinary Catheter Date of Insertion: 01/09/22 Urinary Catheter Time of Insertion: 16:45 Data : 01/11/22 03:43 01/11/22 03:43 Micro: Microbiology 01/09/22 12:35 Blood Culture - Preliminary Blood NEGATIVE TO DATE 01/09/22 12:30 Blood Culture - Preliminary Blood NEGATIVE TO DATE A&P Assessment and plan (1) S/P laparoscopic appendectomy: 76-year-old male status post laparoscopic appendectomy for necrotic appendicitis. Continue IV Zosyn, add vancomycin Lactulose 15 cc p.o. twice daily for bowel regimen Heparin for DVT prophylaxis Continue clear liquid diet Hold anticoagulation in case he develops abdominal abscess requiring CT-guided drainage Patient has developed worsening renal function, management as per hospitalist service and nephrology Status: Acute Attestations Medical Necessity Statement*: As per primary Coding Level of Care Code Acute Warp Dyeing Tender for g Fwd Diagnoses S/P laparoscopic appendectomy Z90.49
[2022-01-11] MEDS: acetaminophen 325 mg Tablet 650 MG PO (16:36)
[2022-01-11] MEDS: lactulose oral liq 20 gm/30 mL UDC 10 GM PO (16:36)
--- NOTE | 2022-01-11 17:11 | XRR_ITS ---
PROCEDURE INFORMATION: Exam: XR Chest Exam date and time: 01/11/2022 5:28 PM Age: 76 years old Clinical indication: Shortness of breath; Additional info: SOB TECHNIQUE: Imaging protocol: XR of the chest. Views: 1 view. COMPARISON: CR XR chest 1V portable [id number] 01/11/2022 5:16 AM FINDINGS: Lungs: Patchy bilateral right greater than left airspace infiltrates, greatest in the lower lung barton. Stable coarse interstitial markings suggesting underlying pulmonary fibrosis. Pleural spaces: Unremarkable. No pleural effusion. No pneumothorax. Heart/Mediastinum: Cardiomegaly. Bones/joints: Unremarkable. XR/XR chest 1V portable [id number] IMPRESSION: 1. Patchy bilateral right greater than left airspace infiltrates, greatest in the lower lung barton. 2. Stable coarse interstitial markings suggesting underlying pulmonary fibrosis. 3. Cardiomegaly.
[2022-01-11] MEDS: sodium bicarbonate 8.4% 1 mEq/mL 50mL Syr 50 MEQ IVP (17:18)
[2022-01-11 17:20] LABS: ABG PCO2 34.5 mmHg (35-45); ABG PH Result 7.29 (7.35-7.45); Alveolar-Arterial Oxygen Gradi 31.4 mmHg (5-10); Arterial Blood Gas Hematocrit 38.4 % (42-52); Blood Gas Allen Test Pos; Blood Gas Operator Identificat CAK; Blood Gas Sample Site Brachial, left; Blood Gas Sample Type Arterial; Carboxyhemoglobin 0.4 %THgb (0.4-20.1); HCO3 ABG 16.6 mmol/L (22-26); HGB O2 Sat 88.6 % (95-100); Ionized Calcium Level - ABG 1.1 mmol/L (1.1-1.4); Methemoglobin 0.7 % (0.4-1.5); Oxygen Device BIPAP; Oxygen Saturation ABG 89.5; PO2 ABG 64.8 mmHg (80.0-100.0); Potassium Level - ABG 4.4 mmol/L (3.5-5.0); Total Hemoglobin 12.5 g/dL (14-18)
[2022-01-11] MEDS: FUROsemide 100 MG in sodium chloride 0.9% 40 ML IV (18:13)
[2022-01-11] MEDS: FUROsemide 10 mg/mL SDV 4mL 40 MG IVP (18:15)
[2022-01-11 18:19] LABS: Alanine Aminotransferase 38 U/L (0-41); Albumin Level 3.1 g/dL (3.5-5.2); Alkaline Phosphatase 68 IU/L (40-130); Anion Gap 24.5 (5-19); Aspartate Amino Transferase 186 U/L (0-40); Blood Urea Nitrogen 70 mg/dL (8-23); Calcium 8.6 mg/dL (8.5-10.5); Carbon Dioxide 16 mmol/L (22-29); Chloride 94 mmol/L (98-107); Glucose 194 mg/dL (65-115); Osmolality Calculated 296 mOsm/kg (285-295); Potassium 4.5 mmol/L (3.5-5.1); Sodium 130 mmol/L (136-145); Total Bilirubin 2.4 mg/dL (0.15-1.2); Total Protein 7.1 g/dL (6.6-8.7)
--- NOTE | 2022-01-11 18:34 | PC.NURSE ---
Pt update Pt walked this afternoon and did well. About 30 minutes after pt became diaphoretic and tachy. Phys was notified and we were given orders to give cardizem PO. Cardizem given per orders and pain medicine given. Pt's heart rate came down to the 110's. Pt became more short of breath, placed on 10L by respiratory. Pt sats remained in the mid 80's. Phys notified and pt placed on Bipap by RT. Phys ordered for stat CXR, BMP and ABG. Phys consulted Nephro. Per nephro. after consulting with the pt, a temporary dialysis catheter will be placed and pt will receive HD tonight. Pt has agreed to in room procedure and has signed consent. Family updated.
--- NOTE | 2022-01-11 19:31 | PC.NURSE ---
Attempted to contact pt's , at this time the number provided is not accepting phone calls. Pt did not want his daughter contacted at this time.
--- NOTE | 2022-01-11 20:21 | XRR_ITS ---
PROCEDURE INFORMATION: Exam: XR Chest Exam date and time: 01/11/2022 8:28 PM Age: 76 years old Clinical indication: Device placement; Other: RT. Dialysis catheter; Additional info: Line placement TECHNIQUE: Imaging protocol: XR of the chest. Views: 1 view. COMPARISON: CR (CHEST, ) 01/11/2022 5:28 PM FINDINGS: Tubes, catheters and devices: Interval placement of the right internal jugular dialysis catheter with the distal tip at the cavoatrial junction. Lungs: Stable moderate elevation of the right hemidiaphragm. Patchy airspace disease in the right and left lower lobes has decreased compared with the chest radiograph done earlier the same day, suggesting resolving atelectasis or pneumonia. Pleural spaces: No pleural effusion. No pneumothorax. Heart/Mediastinum: Stable mild enlargement of the cardiac silhouette. Mediastinal contours are unremarkable. Bones/joints: Unremarkable for age. XR/XR chest 1V portable [id number] IMPRESSION: 1. Patchy airspace disease in the right and left lower lobes has decreased compared with the chest radiograph done earlier the same day, suggesting resolving atelectasis or pneumonia. 2. Interval placement of the right internal jugular dialysis catheter with the distal tip at the cavoatrial junction. 3. Incidental/nonacute findings are listed in the report.
--- NOTE | 2022-01-11 20:29 | PM.ACPR ---
Procedure/Consent Time out: Time Out Performed: Yes Consent: Consent for Procedure: Consent obtained from patient Procedure Narrative: Preoperative diagnosis: Acute renal failure requiring emergent dialysis Postoperative diagnosis: Same Procedure: Placement of Mahurkar catheter in the right internal jugular vein under ultrasound guidance Ultrasound guidance and interpretation for placement of catheter Surgeon: Stewart Anesthesia: Local Description of procedure: The patient's right neck and chest was prepped and draped in a sterile manner. An ultrasound of the right internal jugular vein revealed patent veins with no evidence of thrombus. 5 mL of 1% lidocaine was infiltrated at the site of planned entry, an introducer needle was used to access the right internal jugular vein under ultrasound guidance. Guidewire was passed through the introducer needle and the introducer needle was removed. Serial dilators were passed over the guidewire after the skin incision was extended using 11 blade and Mahurkar catheter was then passed over the guidewire and the guidewire was removed. The catheter was sutured to the skin using 2-0 Ethilon suture. Sterile dressings were applied. Postop procedure chest x-ray showed no evidence of pneumothorax and good positioning of the catheter. Acute Procedures Epistaxis Control: Time out performed: Yes
--- NOTE | 2022-01-11 20:30 | PM.ACPR ---
Procedure/Consent Time out: Time Out Performed: Yes Consent: Consent for Procedure: Consent obtained from patient Procedure Narrative: Preoperative diagnosis: Poor IV access requiring central venous access for IV medications and IV antibiotics Preoperative diagnosis: Poor IV access requiring central venous access for IV medications and IV antibiotics Procedure: Placement of 7 Spanish triple-lumen catheter in the right femoral vein Ultrasound guidance and interpretation for placement of catheter Anesthesia: Local Surgeon: Dr. William Description of procedure: The patient's right groin was prepped and draped in a sterile manner. 10 mL of 1% lidocaine was infiltrated under the subclavian vein on the right side at the site of planned entry. An introducer needle was used to access the right femoral vein, a guidewire passed through the introducer needle and the needle was removed. Using 11 blade, a skin incision was made at the guidewire entry site. Dilator was passed over the guidewire and a 7 Spanish triple-lumen central venous catheter was passed over the guidewire and the guidewire was removed. The catheter was sutured to the skin at 15 cm. All 3 ports hallie blood and flushed easily. Acute Procedures Epistaxis Control: Time out performed: Yes
--- NOTE | 2022-01-11 21:00 | PC.NURSE ---
Procedure note Dr. William placed temp dialysis catheter in right jugular vein. Placement confirmed with X-ray. Dressing C/D/I. Central venous line placed in Right Femoral. Dressing C/D/I. Consent in chart.
--- NOTE | 2022-01-11 22:07 | PC.NURSE ---
Dr. Chacon ordered to discontinue Lasix drip and continue with the order for Lasix IVP.
[2022-01-11 22:12] LABS: Hepatitis B Surface AB 3.5 (11.5-1000); Hepatitis B Surface Antigen Non-Reactive (Nonreactive); Hepatitis C Virus Antibody Non-Reactive (Nonreactive)
--- NOTE | 2022-01-11 23:05 | PC.NURSE ---
Verbal order to stop Heparin drip for dialysis catheter placement per Dr. Castaneda at 1845
--- NOTE | 2022-01-11 23:35 | PC.NURSE ---
Spoke to Dr. Salinas to report patient's change in heart rhythm. Reported that patient has had a recent HD cath placement. Clarified need for chest x ray and EKG.
--- NOTE | 2022-01-11 23:41 | ECG_ITS ---
[facility] Test Date: 2022-01-11 Pat Name: Harpreet Pablo Department: Room: ICU10 Gender: Male Reservations Specialist: : [id number] Requested By: Jorge Salinas Order Number: [id number] MD: Tory Haskins M.D. Measurements Intervals Rawlings Rate: 147 P: OH: QRS: 22 QRSD: 156 T: 165 QT: 318 QTc: 499 Interpretive Statements ATRIAL FIBRILLATION WITH RAPID VENTRICULAR RESPONSE WITH ABERRANT CONDUCTION OR VENTRICULAR PREMATURE COMPLEXES LEFT BUNDLE BRANCH BLOCK [120+ ms QRS DURATION, 80+ ms Q/S IN V1/V2, 85+ ms R IN I/aVL/V5/V6] Compared to ECG 01/09/2022 16:03:35 Ventricular premature complex(es) now present Aberrant conduction of supraventricular beat(s) now present Ectopic atrial rhythm no longer present Electronically Signed On 01-13-2022 7:14:40 CDT by Tory Haskins M.D. [email or web address]
[2022-01-12] VITALS (136 sets, daily range): BP systolic 66–166; BP diastolic 50–131; PULSE 99–164; RESP 20–43; TEMP 36.6–37.7; O2SAT 76–100
[2022-01-12] MEDS: HYDROcodone-acetaminophen 5-325 mg Tablet 1 TAB PO ×2 (00:24→13:13)
[2022-01-12] MEDS: heparin, porcine 1,000 unit/mL INJ 10 mL 10000 UNIT HE (00:24)
[2022-01-12] MEDS: metoprolol tartrate 25 mg Tablet PO ×3 (00:27→21:17)
[2022-01-12] MEDS: linezolid premix 600 MG/300 ML PREMIX 300 MG IV ×3 (00:28→21:16)
--- NOTE | 2022-01-12 00:37 | PC.NURSE ---
Change in patient status 0. Patient was moved from ICU 5 to ICU 10 with portable monitoring with RT. Patient in a.fib with rvr with runs of polymorphic v-tach heart rate 170's. Hospitalist notified with orders for cardizem drip per protocol, restart heparin drip 0300, ekg, and series troponin.
[2022-01-12 01:32] LABS: Troponin(5th) Baseline 652 ng/L (0-15)
--- NOTE | 2022-01-12 01:39 | PC.NURSE ---
Physician updated on patient status. cradiac rhythm a.fib 140's-160's. cardizem running at 12.5 ml/hr. BP ranging 98/74 - 110's/80's. Physician ordered cardizem 15 ml/hr and update with vitals in 45 minutes.
[2022-01-12] MEDS: piperacillin-tazobactam 3.375 GM in sodium chloride 0.9% (plus) 50 ML IV ×2 (01:46→14:19)
--- NOTE | 2022-01-12 02:31 | PC.NURSE ---
Physician update with update HR 150 BP 107/90. Physician ordered Amio drip per protocol with initial bolus.
[2022-01-12] MEDS: clopidogrel 75 mg Tablet PO (02:43)
[2022-01-12] MEDS: aspirin 81 mg EC Tablet PO (02:43)
[2022-01-12 03:03] LABS: Hemoglobin 11.8 g/dL (11.7-16.6); Mean Corpuscular HGB Conc 32.8 g/dL (30.0-36.0); Mean Corpuscular Hemoglobin 35.1 pg (28.0-34.0); Mean Corpuscular Volume 107.1 fl (80-94); Mean Platelet Volume 10.4 fL (7.4-10.4); Platelet Count 164 10^3/cmm (130-400); Red Blood Count 3.36 10^6/uL (4.1-5.3)
[2022-01-12 03:17] LABS: INR 1.58 (0.8-1.2); Partial Thromboplastin Time 37.5 SECONDS (23.9-36.7)
[2022-01-12 03:27] LABS: Lactate (Lactic Acid level) 3.2 mmol/L (0.5-2.2)
[2022-01-12 03:28] LABS: Alanine Aminotransferase 36 U/L (0-41); Albumin Level 3.2 g/dL (3.5-5.2); Alkaline Phosphatase 82 IU/L (40-130); Anion Gap 26.2 (5-19); Aspartate Amino Transferase 176 U/L (0-40); Blood Urea Nitrogen 73 mg/dL (8-23); C Reactive Protein 274.9 mg/L (0.0-4.9); Calcium 8.4 mg/dL (8.5-10.5); Carbon Dioxide 17 mmol/L (22-29); Chloride 92 mmol/L (98-107); Globulin 3.3 g/dL (1.3-4.6); Glucose 251 mg/dL (65-115); Magnesium 2.5 mg/dL (1.7-2.3); Osmolality Calculated 302 mOsm/kg (285-295); Phosphorus 6.5 mg/dL (2.5-4.5); Potassium 4.2 mmol/L (3.5-5.1); Sodium 131 mmol/L (136-145); Total Protein 6.5 g/dL (6.6-8.7)
[2022-01-12 03:37] LABS: Troponin 5 2HR Delta -23.9 ABS# (0-10)
[2022-01-12 03:39] LABS: Troponin 5 2HR 628.1 ng/L (0-15)
[2022-01-12 04:01] LABS: NT Pro B Type Natriuretic Pept > 70000 pg/mL (0-450); Procalcitonin > 100.00 ng/mL (0-0.5)
[2022-01-12 04:07] LABS: White Blood Count 35.3 10^3/uL (4.0-10.0)
[2022-01-12 04:08] LABS: Absolute Segmented Neutrophil 28.2 10/cmm (1.6-7.1); Band Neutrophils Absolute 1.8 10^3/cmm (0.0-1.2); Eosinophils 0 %; Lymphocytes 5 %; Lymphocytes Absolute 1.8 10^3/cmm (1.2-3.4); Monocytes Absolute 3.9 10^3/cmm (0.1-0.6); Segmented Neutrophils 80 %; Total Cells Counted 100 (0-100)
[2022-01-12 04:09] LABS: Blastocytes 0 % (0-0); Platelet Estimate Normal (Normal)
[2022-01-12] MEDS: pantoprazole 40 mg SDV IVP ×2 (04:43→16:17)
[2022-01-12] MEDS: lactulose oral liq 20 gm/30 mL UDC 10 GM PO ×2 (04:47→16:18)
[2022-01-12 07:03] LABS: Troponin 5 6HR 735.9 ng/L (0-15); Troponin 5 6HR Delta 83.9 ng/L (0-12)
--- NOTE | 2022-01-12 07:22 | P.PN_ITS ---
Subjective Subjective: still lethargic on bipap. did not tolerate HD last night- has been in a fib w/ RVR overnight. Medications: Reviewed: Yes Medication Review Details: Current Medications Acetaminophen (Acetaminophen 325 Mg Tablet) 650 mg PO Q6H PRN PRN Reason: Mild/Mod Pain Or Temp >/= 101 Last Admin: 01/11/22 16:36 Dose: 650 mg Documented by: Hydrocodone Bitart/Acetaminophen (Hydrocodone-Acetaminophen 5-325 Mg Tablet) 1 tab PO Q4H PRN PRN Reason: MODERATE PAIN Last Admin: 01/12/22 00:24 Dose: 1 tab Documented by: Albuterol/Ipratropium (Ipratropium-Albuterol 3 Ml Neb) 3 ml INHALATION Q4H.R ESPIRATORY NORRIS Last Admin: 01/12/22 04:49 Dose: Not Given Documented by: Aspirin (Aspirin 81 Mg Ec Tablet) 81 mg PO DAILY NORRIS Last Admin: 01/12/22 02:43 Dose: 81 mg Documented by: Atorvastatin Calcium (Atorvastatin 40 Mg Tablet) 80 mg PO DAILY NORRIS Last Admin: 01/11/22 08:25 Dose: 80 mg Documented by: Budesonide (Budesonide 0.5 Mg/2 Ml Neb) 0.5 mg INHALATION BID.RESPIRATORY NORRIS Last Admin: 01/11/22 20:37 Dose: 0.5 mg Documented by: Bupropion HCl (Bupropion Xl (24 Hr) 150 Mg Tablet) 150 mg PO DAILY NORRIS Clopidogrel Bisulfate (Clopidogrel 75 Mg Tablet) 75 mg PO DAILY NORRIS Last Admin: 01/12/22 02:43 Dose: 75 mg Documented by: Ferrous Sulfate (Ferrous Sulfate Ec 325 Mg Tablet) 325 mg PO DAILY NORRIS Furosemide (Furosemide 10 Mg/Ml Sdv 10ml) 60 mg IVP Q12H NORRIS Last Admin: 01/11/22 22:18 Dose: 60 mg Documented by: Heparin Sodium (Porcine) (Heparin 5,000 Unit/Ml Inj 1 Ml) 0 unit IV PRN PRN; Protocol PRN Reason: Heparin weight-base protocol Piperacillin Sod/Tazobactam (Sod 3.375 gm/ Sodium Chloride) 50 mls @ 12.5 mls/hr IV Q12H NORRIS; Protocol Last Infusion: 01/12/22 06:01 Dose: Infused Documented by: Linezolid (Zyvox Premix) 600 mg in 300 mls @ 300 mls/hr IV Q12H [facility] Last Infusion: 01/12/22 01:46 Dose: Infused Documented by: Heparin Sodium/Sodium Chloride (Heparin Drip) 25,000 unit in 500 mls @ 0 mls/hr IV .Q0M NORRIS; Protocol Last Titration: 01/12/22 03:35 Dose: 31 unit/kg/hr, 68.34 mls/hr Documented by: Albumin Human (Albumin) 12.5 gm in 50 mls @ 60 mls/hr IV PRN PRN PRN Reason: Hypotension and/or symptomatic Diltiazem HCl 125 mg/ Sodium (Chloride) 125 mls @ 0 mls/hr IV .Q0M NORRIS; Protocol Last Titration: 01/12/22 03:13 Dose: 0 mg/hr, 0 mls/hr Documented by: Amiodarone HCl 900 mg/Dextrose/ IV Miscellaneous Supplies 518 mls @ 0 mls/hr IV .Q0M NORRIS; Protocol Last Admin: 01/12/22 02:42 Dose: 1 mg/min, 34.53 mls/hr Documented by: Lactulose (Lactulose Oral Liq 20 Gm/30 Ml Udc) 10 gm PO Q12H [facility] Last Admin: 01/12/22 04:47 Dose: 10 gm Documented by: Metoprolol Tartrate (Metoprolol Tartrate 25 Mg Tablet) 25 mg PO BID@1000,2200 [facility] Last Admin: 01/12/22 00:27 Dose: 25 mg Documented by: Ondansetron HCl (Ondansetron 2 Mg/Ml Sdv 2 Ml) 4 mg IVP Q8H PRN PRN Reason: vomiting, or N/V if npo Pantoprazole Sodium (Pantoprazole 40 Mg Sdv) 40 mg IVP Q12H [facility] Last Admin: 01/12/22 04:43 Dose: 40 mg Documented by: Vitals/I&O/Wt Last Vital Signs Temp 97.9 F 01/12/22 05:50 Pulse 130 H 01/12/22 06:08 Resp 31 H 01/12/22 05:50 BP 97/76 01/12/22 05:50 Pulse Ox 92 01/12/22 06:08 01/11/22 01/12/22 01/12/22 22:59 06:59 14:59 Intake Total 690.286 / 1170.286 438.333 / 1608.619 Output Total 225 / 225 110 / 335 Balance 465.286 / 945.286 328.333 / 1273.619 Weight last 48 hrs Weight 110.223 kg Physical Exam Narrative: uncomfortable, bipap, lethargic, tachycardic in a fib heent- nc/at, eomi, anicteric neck supple, rt ij dialysis catheter lungs b/l crackles heart tachy, +OSCAR< + s1, s2 abd soft, tender, poor bs ext 1+ edema neuro- lethargic, sleepy Urinary Catheter Management: Arango: Cath Placed During This Visit: yes Reason for Continuing Indwelling Catheter: Accurate Measurement of Urinary Output in Critically Ill Patients Urinary Catheter Date of Insertion: 01/09/22 Urinary Catheter Time of Insertion: 16:45 Data : 01/12/22 02:15 01/12/22 02:15 A&P Assessment and plan (1) ROXANA (acute kidney injury): 76 yr old man chronic systolic chf, obesity, htn, COPD- home 02 dep, CKD stage 3 1. acute appendicitis- perforated- s/p lap choley and on renal dose abx -remains w/ a leukocytosis. appears in septic shock - abx per medicine 2. CKD stage 3a- from obesity, dm, htn, CRS 3. ROXANA- ATN from sharlene-i, hypotension, sepsis -u/a 1+ prot, 3+ blood, 40-50 rbc check c3, c4, ck - renal us- rt 10.5 cm, left 13.4 cm -significant asymmetry -attempted HD last night for AMS and hypoxemia. unfortuantely a fib worsened on IHD -will attempt CRRT today - 4 k, emove 100 ml/hr, QB 200 , dialysate flow and replacement fluids at 1500 4.b/l pna on cxr 5. met acidosis and resp alkalosis -from lactate of 3.2, sepsis, and roxana 5. hyponatremia from ROXANA/ CHF/ pain -urine lytes -check tsh 6. DM control 7. echo w. EF 42% 8. inc ast- hold statin seen and examined w/ RN- telehealth visit informed consent for telehealth obtained condition critical time spent 40 min by 7:40 am Status: Acute Plan see above Attestations Medical Necessity Statement*: roxana, a fib, septic shock Coding Level of Care Code Acute Pilot Boat Operator for Chg Fwd Diagnoses ROXANA (acute kidney injury) N17.9
[2022-01-12] MEDS: ipratropium-albuterol 3 mL Neb INHALATION ×5 (07:53→23:51)
[2022-01-12] MEDS: budesonide 0.5 mg/2 mL Neb INHALATION ×2 (07:53→20:20)
[2022-01-12 08:03] LABS: ABG PCO2 27.5 mmHg (35-45); ABG PH Result 7.35 (7.35-7.45); Arterial Blood Gas Hematocrit 37.5 % (42-52); Base Excess ABG -9.1 mmol/L (-2.0-2.0); Blood Gas Allen Test Pos; Blood Gas Operator Identificat CAK; Blood Gas Sample Site Radial, left; Blood Gas Sample Type Arterial; HCO3 ABG 15.1 mmol/L (22-26); Oxygen Device BIPAP; PO2 ABG 84.4 mmHg (80.0-100.0)
[2022-01-12 08:26] LABS: Basophils # 0.1 10^3/uL (0.0-0.1); Basophils % 0.2 %; Hematocrit 34.6 % (42.0-52.0); Hemoglobin 11.6 g/dL (11.7-16.6); Lymphocytes # 0.8 10^3/uL (0.8-4.8); Lymphocytes % 2.4 %; Mean Corpuscular HGB Conc 33.5 g/dL (30.0-36.0); Mean Corpuscular Hemoglobin 34.7 pg (28.0-34.0); Mean Corpuscular Volume 103.6 fl (80-94); Mean Platelet Volume 10.1 fL (7.4-10.4); Monocytes # 3.1 10^3/uL (0.2-0.9); Monocytes % 9.3 %; Neutrophils # 28.22 10^3/uL (1.8-7.7); Nucleated Red Blood Cells % 0.1 %; Platelet Count 153 10^3/cmm (130-400); Red Blood Count 3.34 10^6/uL (4.1-5.3); Red Cell Distribution Width 14.1 % (12.1-15.1)
--- NOTE | 2022-01-12 08:37 | PM.PN ---
Subjective Subjective: Patient did not tolerate dialysis last night and went into A. fib with RVR. He is currently on heparin and amiodarone drip. He was tolerating clears and passing flatus yesterday but has been on BiPAP overnight Vitals/I&O/Wt Last Vital Signs Temp 97.9 F 01/12/22 05:50 Pulse 126 H 01/12/22 07:55 Resp 30 H 01/12/22 07:52 BP 97/76 01/12/22 05:50 Pulse Ox 94 01/12/22 07:52 01/11/22 01/12/22 01/12/22 22:59 06:59 14:59 Intake Total 690.286 / 1608.619 438.333 / 1608.619 Output Total 225 / 335 110 / 335 Balance 465.286 / 1273.619 328.333 / 1273.619 Weight last 48 hrs Weight 243 lb Physical Exam Narrative: Abdomen: Soft, distended, nontender, incision clean dry and intact Urinary Catheter Management: Arango: Cath Placed During This Visit: yes Reason for Continuing Indwelling Catheter: Accurate Measurement of Urinary Output in Critically Ill Patients Urinary Catheter Date of Insertion: 01/09/22 Urinary Catheter Time of Insertion: 16:45 Data : 01/12/22 02:15 01/12/22 02:15 A&P Assessment and plan (1) S/P laparoscopic appendectomy: 76-year-old male status post laparoscopic appendectomy for necrotic appendicitis. Continue IV Zosyn, add vancomycin Lactulose 15 cc p.o. twice daily for bowel regimen Continue clear liquid diet Patient now has atrial fibrillation, acute renal failure, COPD on BiPAP and is on a heparin and amiodarone drip. Medical management as per nephrology and hospitalist service Status: Acute Attestations Medical Necessity Statement*: As per primary Coding Level of Care Code Acute Road Marker for [facility] Fwgarry Diagnoses S/P laparoscopic appendectomy Z90.49
[2022-01-12 08:56] LABS: INR 1.68 (0.8-1.2)
[2022-01-12] MEDS: FUROsemide 10 mg/mL SDV 10mL 60 MG IVP ×2 (09:01→21:17)
[2022-01-12 09:03] LABS: Albumin Level 3.1 g/dL (3.5-5.2); Anion Gap 27.5 (5-19); Blood Urea Nitrogen 79 mg/dL (8-23); Calcium 8.3 mg/dL (8.5-10.5); Carbon Dioxide 17 mmol/L (22-29); Chloride 92 mmol/L (98-107); Glucose 267 mg/dL (65-115); Magnesium 2.6 mg/dL (1.7-2.3); Phosphorus 5.9 mg/dL (2.5-4.5); Potassium 4.5 mmol/L (3.5-5.1); Sodium 132 mmol/L (136-145)
[2022-01-12] MEDS: buPROPion XL (24 HR) 150 mg Tablet PO (09:03)
[2022-01-12] MEDS: ferrous sulfate EC 325 mg Tablet PO (09:03)
[2022-01-12] MEDS: atorvastatin 40 mg Tablet 80 MG PO (09:03)
[2022-01-12] MEDS: digoxin 250 mcg/ml INJ 2 mL IVP (09:34)
[2022-01-12] MEDS: sodium bicarbonate 8.4% 1 mEq/mL 50mL Syr 100 MEQ IVP (09:38)
[2022-01-12 09:54] LABS: White Blood Count 32.8 10^3/uL (4.0-10.0)
[2022-01-12 10:23] LABS: Partial Thromboplastin Time 101.4 SECONDS (23.9-36.7)
[2022-01-12] MEDS: amiodarone 50 mg/mL SDV 3 mL 150 MG IVP (11:36)
--- NOTE | 2022-01-12 12:06 | PC.NURSE ---
Bedside report received from DIAMOND Guadalupe. Care assumed.
--- NOTE | 2022-01-12 12:10 | PC.CHAP ---
Pastoral Care Encounter/Spiritual Assessment Type of Contact [] Declined design studio consultant visit [] Patient/Family/Request visit [] Outpatient visit [] Follow-up visit [] Physician referral [] Code/Alert [x] Routine visit [] Staff referral [] Actively dying [] Patient sleeping [x] Family support [] [] Out of room [] Palliative care [] [] Receiving care in room [] Pre-surgical visit [] Trauma [] Long length of stay [x] ICU visit [x] Other: conversation with ... patient seems to be suffering more Relational/Emotional Strength [] Patient feels connected with others/family/visitors/staff [] Distress [] Loneliness/isolation [] Abandonment Spirituality of Patient [] Person of Hilary [] Attends Druze of their Hilary [] Believes in Prayer [] Reads Bible or Orthodox materials [] There are Spiritual issues to be addressed Compensation Coordinator Interventions [x] Prayer [] Active listening [] Non-anxious presence [] Spiritual/emotional support [] Crisis/trauma care [] Spiritual counseling [] Bereavement support [] Provided bereavement packet [] Provided Bible/devotional materials [] Provided toy/stuffed animal, coloring book to patient or family member [] Provided Communion [] Anointing/[place] [] Salvation [x] Completed spiritual assessment [] Other: Impact on Illness or Injury [] Angry [] Fearful [] Anxious [] Often cries [] Exhaustion [] Unable to work [] Unable to attend yazidism [] Unable to walk/stand [] Unable to read [] Unable to drive [] Unable to eat/drink [] Unable to sleep [] Unable to be with family [] Patient intubated [] Other: Summary Time spent with patient
--- NOTE | 2022-01-12 12:10 | PC.SOCIAL ---
IMM update IMM updated with patient. Copy Pg 2 provided. Initialled, dated, timed, and placed in chart.
[2022-01-12] MEDS: sodium chloride 0.9% 1,000 mL Bag CRRT ×3 (12:54→13:12)
[2022-01-12] MEDS: PrismaSol BGK 4/2.5 - 5,000 mL Bag 5000 ML CRRT ×7 (12:56→23:46)
--- NOTE | 2022-01-12 12:57 | PM.PN ---
Subjective Subjective: Patient was seen this morning, currently on BiPAP, in A. fib with RVR, 60% BiPAP, alert to person, to place, not to time, he squeezes my fingers, follows commands, complains of shortness of breath -Overnight he did not tolerate dialysis, will need A. fib with RVR, started on amiodarone drip -Remains in A. fib with RVR -Patient was given 2 amiodarone boluses, 1 dig push, heart rates have improved -Currently undergoing CRRT - is at bedside, updated patient's clinical status Vitals/I&O/Wt Last Vital Signs Temp 97.8 F 01/12/22 08:00 Pulse 134 H 01/12/22 11:25 Resp 40 H 01/12/22 11:24 BP 153/95 01/12/22 08:00 Pulse Ox 93 01/12/22 11:24 01/11/22 01/12/22 01/12/22 22:59 06:59 14:59 Intake Total 690.286 / 1170.286 438.333 / 1608.619 0 / 0 Output Total 225 / 225 110 / 335 Balance 465.286 / 945.286 328.333 / 1273.619 0 / 0 Weight last 48 hrs Weight 82.327 kg Weight 110.223 kg Physical Exam Const: COMMON NORMALS: no acute distress OTHER: Alert to person, to place, not to time Resp: COMMON NORMALS: normal respiratory effort, No retractions and No use of accessory muscles AUSCULTATION: crackles and wheezes Cardio: COMMON NORMALS: regular rate, regular rhythm, S1 normal heart sound present and S2 normal heart sound present RATE: regular rate RHYTHM: regular rhythm HEART SOUNDS: S1 normal heart sound present and S2 normal heart sound present GI: COMMON NORMALS: Normal to inspection, nondistended, normoactive bowel sounds present, Soft to palpation, non-tender and No hepatosplenomegaly present PALPATION: Yes Soft to palpation and Yes No hepatosplenomegaly present Extremity: COMMON NORMALS: no pedal edema Urinary Catheter Management: Arango: Cath Placed During This Visit: yes Reason for Continuing Indwelling Catheter: Accurate Measurement of Urinary Output in Critically Ill Patients Urinary Catheter Date of Insertion: 01/09/22 Urinary Catheter Time of Insertion: 16:45 Data : 01/12/22 08:16 01/12/22 08:16 Micro: Microbiology 01/11/22 Unknown Urine Culture - Preliminary Urine,Clean Catch A&P Assessment and plan (1) Appendicitis with perforation: Status: Acute (2) CAD (coronary artery disease): Status: Acute (3) Sepsis: Status: Acute (4) ROXANA (acute kidney injury): Status: Acute (5) NSTEMI (non-ST elevated myocardial infarction): Status: Acute (6) Systolic CHF: Status: Acute (7) COPD exacerbation: Status: Acute (8) Acute respiratory failure with hypoxia: Status: Acute Plan Aspiration pneumonia? -Patchy densities bilaterally on chest x-ray -Antibiotics as below -Monitor respiratory status closely Acute appendicitis with small amount of free air seen on CT an sepsis -Acute necrotic appendicitis, status post laparoscopic appendectomy -Currently on clears -Febrile, WBC 32.8, remains afebrile -Continue Zosyn and vancomycin for antibiotic coverage -With evidence of sepsis, Levophed if needed -lactic acid 2.7 -Maintain map around 65 -Telemetry monitoring -Serial abdominal exams -Status post andexxa for reversal of Eliquis, in preparation for surgery -Admit to ICU -Full code -SCDs, Lovenox for DVT prophylaxis Acute hypoxia respiratory failure secondary to fluid overload, diastolic CHF -Combination of systolic and COPD exacerbation and fluid overload -Urine output minimal, did not respond to Lasix, or Lasix drip -Did not tolerate dialysis due to A. fib with RVR, -Start CRRT -Monitor respiratory status closely -Continue BiPAP -Continue nebulizer treatments, budesonide Acute renal failure on chronic kidney disease -Creatinine 6.0 -Did not respond to diuretic therapy -Receiving CRRT -Monitor renal function monitor urine output -Nephrology consulted -Renal ultrasound CAD with elevated troponins -Serial EKGs, serial troponins, telemetry monitoring Atrial fibrillation with rapid ventricular response -Start on heparin drip -Has received amiodarone boluses x2, amiodarone drip, digoxin bolus -Monitor in the ICU Elevated lactic acid, secondary to acute appendicitis perforation above Sepsis secondary acute appendicitis, perforation as above Attestations Medical Necessity Statement*: Patient requires hospitalization for acute hypoxic respiratory failure, persistent leukocytosis, A. fib with RVR, critical care time spent over 55 minutes Coding Level of Care Code Acute Mother[employer] Helper for [facility] Fwd Diagnoses Appendicitis with perforation K35.32 CAD (coronary artery disease) I25.10 Sepsis A41.9 ROXANA (acute kidney injury) N17.9 NSTEMI (non-ST elevated myocardial infarction) I21.4 Systolic CHF I50.20 COPD exacerbation J44.1 Acute respiratory failure with hypoxia J96.01
[2022-01-12 14:12] LABS: Albumin Level 3.3 g/dL (3.5-5.2); Anion Gap 27.1 (5-19); Calcium 8.3 mg/dL (8.5-10.5); Carbon Dioxide 19 mmol/L (22-29); Chloride 90 mmol/L (98-107); Glucose 213 mg/dL (65-115); Magnesium 2.7 mg/dL (1.7-2.3); Phosphorus 5.9 mg/dL (2.5-4.5); Potassium 4.1 mmol/L (3.5-5.1); Sodium 132 mmol/L (136-145)
[2022-01-12 14:18] LABS: Blood Urea Nitrogen 81 mg/dL (8-23)
[2022-01-12] MEDS: albumin 12.5 GM/50 ML VIAL IV (14:33)
[2022-01-12] MEDS: heparin drip 25,000 UNIT/500 ML PREMIX 25 UNIT IV (16:17)
[2022-01-12 17:41] LABS: Partial Thromboplastin Time 128.3 SECONDS (23.9-36.7)
--- NOTE | 2022-01-12 19:31 | PC.NURSE ---
Shift Note: Pt rested in bed throughout shift. Pt continues to use BiPap, FIO2 started at 60% decreased to 40%. Mask needs repositioned frequently due to pt opening mouth to get bottom lip out of mask. Pt remains tachypneic. His B/P and heart rate has imporved. He received a amiodarone bolus today. Amiodarone infusing at 1 mg/min, no titration. Heparin also infusing, rate adjusted per protocol. CRRT started around 1400, pt tolerating well. He did have hypotensive episode at beginning, albumin admin. His urine output is scant. his abdomen is firm, distended and tender. Frequent safety and comfort rounds continue. Orders and/or nursing care completed as indicated. Patient monitored for response to intervention and treatment(s). Education provided includes Heparin, CRRT, and antibiotics. Patient and/or customer engagement representative verbalized understanding of plan of care and medications. Will continue to monitor.
[2022-01-12] MEDS: LORazepam 2 mg/mL INJ 1 mL 1 MG IVP (20:19)
[2022-01-12 21:10] LABS: Albumin Level 3.4 g/dL (3.5-5.2); Anion Gap 25.2 (5-19); Blood Urea Nitrogen 67 mg/dL (8-23); Calcium 8.3 mg/dL (8.5-10.5); Carbon Dioxide 20 mmol/L (22-29); Chloride 92 mmol/L (98-107); Glucose 176 mg/dL (65-115); Phosphorus 4.2 mg/dL (2.5-4.5); Potassium 4.2 mmol/L (3.5-5.1); Sodium 133 mmol/L (136-145)
[2022-01-12 21:44] LABS: Hematocrit 31.8 % (42.0-52.0); Hemoglobin 11.3 g/dL (11.7-16.6); Mean Corpuscular HGB Conc 35.5 g/dL (30.0-36.0); Mean Corpuscular Hemoglobin 35.9 pg (28.0-34.0); Mean Platelet Volume 10.6 fL (7.4-10.4); Platelet Count 146 10^3/cmm (130-400); Red Blood Count 3.15 10^6/uL (4.1-5.3); Red Cell Distribution Width 13.9 % (12.1-15.1)
[2022-01-12 21:50] LABS: Absolute Neutrophil 29.1 10^3/cmm (1.4-6.5); Absolute Segmented Neutrophil 20.3 10/cmm (1.6-7.1); Band Neutrophils Absolute 8.8 10^3/cmm (0.0-1.2); Eosinophils 3 %; Lymphocytes 1 %; Lymphocytes Absolute 1.4 10^3/cmm (1.2-3.4); Monocytes Absolute 4.2 10^3/cmm (0.1-0.6); Platelet Estimate Normal (Normal); Segmented Neutrophils 58 %; Total Cells Counted 100 (0-100)
[2022-01-13] VITALS (99 sets, daily range): BP systolic 70–184; BP diastolic 32–118; PULSE 40–117; RESP 16–42; TEMP 36.3–38.2; O2SAT 37–100
[2022-01-13] MEDS: PrismaSol BGK 4/2.5 - 5,000 mL Bag 5000 ML CRRT ×9 (00:01→19:48)
[2022-01-13] MEDS: piperacillin-tazobactam 3.375 GM in sodium chloride 0.9% (plus) 50 ML IV ×2 (00:51→13:17)
[2022-01-13] MEDS: ipratropium-albuterol 3 mL Neb INHALATION ×5 (03:20→20:09)
[2022-01-13 03:22] LABS: Albumin Level 3.5 g/dL (3.5-5.2); Anion Gap 26.5 (5-19); Blood Urea Nitrogen 55 mg/dL (8-23); Calcium 8.4 mg/dL (8.5-10.5); Carbon Dioxide 20 mmol/L (22-29); Chloride 93 mmol/L (98-107); Glucose 201 mg/dL (65-115); Magnesium 2.8 mg/dL (1.7-2.3); Phosphorus 4.9 mg/dL (2.5-4.5); Potassium 4.5 mmol/L (3.5-5.1); Sodium 135 mmol/L (136-145)
[2022-01-13] MEDS: pantoprazole 40 mg SDV IVP ×2 (04:16→17:48)
[2022-01-13 04:25] LABS: Basophils # 0.1 10^3/uL (0.0-0.1); Basophils % 0.4 %; Eosinophils # 0.3 10^3/uL (0.0-0.8); Eosinophils % 0.9 %; Hematocrit 33.3 % (42.0-52.0); Lymphocytes % 2.9 %; Mean Corpuscular Hemoglobin 34.7 pg (28.0-34.0); Mean Platelet Volume 10.4 fL (7.4-10.4); Monocytes # 3.2 10^3/uL (0.2-0.9); Monocytes % 9.5 %; Neutrophils # 28.27 10^3/uL (1.8-7.7); Neutrophils % 83.8 %; Nucleated Red Blood Cells # 0.1 /100WBC; Nucleated Red Blood Cells % 0.4 %; Platelet Count 131 10^3/cmm (130-400); Red Blood Count 3.17 10^6/uL (4.1-5.3); Red Cell Distribution Width 14.5 % (12.1-15.1)
[2022-01-13 04:34] LABS: INR 1.51 (0.8-1.2)
[2022-01-13 04:53] LABS: Slide Review Slide Review Perform
[2022-01-13 04:56] LABS: White Blood Count 33.7 10^3/uL (4.0-10.0)
[2022-01-13 05:14] LABS: Alanine Aminotransferase 86 U/L (0-41); Albumin Level 3.2 g/dL (3.5-5.2); Alkaline Phosphatase 104 IU/L (40-130); Anion Gap 26.6 (5-19); Aspartate Amino Transferase 251 U/L (0-40); Blood Urea Nitrogen 52 mg/dL (8-23); Calcium 8.4 mg/dL (8.5-10.5); Carbon Dioxide 17 mmol/L (22-29); Chloride 93 mmol/L (98-107); Globulin 4.1 g/dL (1.3-4.6); Glucose 191 mg/dL (65-115); Osmolality Calculated 293 mOsm/kg (285-295); Phosphorus 4.5 mg/dL (2.5-4.5); Potassium 4.6 mmol/L (3.5-5.1); Sodium 132 mmol/L (136-145); Total Bilirubin 2.5 mg/dL (0.15-1.2); Total Protein 7.3 g/dL (6.6-8.7)
[2022-01-13 05:15] LABS: C Reactive Protein 399.6 mg/L (0.0-4.9)
[2022-01-13 05:16] LABS: ABG PCO2 37.6 mmHg (35-45); ABG PH Result 7.27 (7.35-7.45); Arterial Blood Gas Hematocrit 40.2 % (42-52); Base Excess ABG -8.8 mmol/L (-2.0-2.0); Blood Gas Operator Identificat JB; Blood Gas Sample Site Brachial, left; Blood Gas Sample Type Arterial; HCO3 ABG 17.4 mmol/L (22-26); Oxygen Device BIPAP; PO2 ABG 67.9 mmHg (80.0-100.0)
[2022-01-13 05:35] LABS: Lactate (Lactic Acid level) 6.1 mmol/L (0.5-2.2)
[2022-01-13 05:36] LABS: Creatine Phosphokinase 3682 U/L (39-308); NT Pro B Type Natriuretic Pept > 70000 pg/mL (0-450)
--- NOTE | 2022-01-13 06:42 | P.PN_ITS ---
Subjective Subjective: uncomfortable, lethargic on bipap and CRRT Medications: Reviewed: Yes Medication Review Details: Current Medications Acetaminophen (Acetaminophen 325 Mg Tablet) 650 mg PO Q6H PRN PRN Reason: Mild/Mod Pain Or Temp >/= 101 Last Admin: 01/11/22 16:36 Dose: 650 mg Documented by: Hydrocodone Bitart/Acetaminophen (Hydrocodone-Acetaminophen 5-325 Mg Tablet) 1 tab PO Q4H PRN PRN Reason: MODERATE PAIN Last Admin: 01/12/22 13:13 Dose: 1 tab Documented by: Albuterol/Ipratropium (Ipratropium-Albuterol 3 Ml Neb) 3 ml INHALATION Q4H.RESPIRATORY NORRIS Last Admin: 01/13/22 03:20 Dose: 3 ml Documented by: Alteplase, Recombinant (Alteplase 1 Mg/Ml Sdv 2 Ml) 0 mg INTRACATH Q2H PRN; Pro tocol PRN Reason: Poor Catheter Flow/ Clotted Catheter Aspirin (Aspirin 81 Mg Ec Tablet) 81 mg PO DAILY NORRIS Last Admin: 01/12/22 02:43 Dose: 81 mg Documented by: Atorvastatin Calcium (Atorvastatin 40 Mg Tablet) 80 mg PO DAILY NORRIS Last Admin: 01/12/22 09:03 Dose: 80 mg Documented by: Budesonide (Budesonide 0.5 Mg/2 Ml Neb) 0.5 mg INHALATION BID.RESPIRATORY NORRIS Last Admin: 01/12/22 20:20 Dose: 0.5 mg Documented by: Bupropion HCl (Bupropion Xl (24 Hr) 150 Mg Tablet) 150 mg PO DAILY NORRIS Last Admin: 01/12/22 09:03 Dose: 150 mg Documented by: CRRT Dialysis Solution (Prismasol Bgk 4/2.5 - 5,000 Ml Bag) 5,000 ml CRRT CONT NORRIS; Protocol Last Admin: 01/12/22 15:20 Dose: Not Given Documented by: CRRT Dialysis Solution (Prismasol Bgk 4/2.5 - 5,000 Ml Bag) 5,000 ml CRRT CONT NORRIS; Protocol Last Admin: 01/13/22 06:38 Dose: 5,000 ml Documented by: CRRT Dialysis Solution (Prismasol Bgk 4/2.5 - 5,000 Ml Bag) 5,000 ml CRRT CONT NORRIS; Protocol Last Admin: 01/13/22 04:38 Dose: 5,000 ml Documented by: CRRT Dialysis Solution (Prismasol Bgk 4/2.5 - 5,000 Ml Bag) 5,000 ml CRRT CONT NORRIS; Protocol CRRT Dialysis Solution (Prismasol Bgk 4/2.5 - 5,000 Ml Bag) 5,000 ml CRRT CONT NORRIS; Protocol CRRT Dialysis Solution (Prismasol Bgk 4/2.5 - 5,000 Ml Bag) 5,000 ml CRRT CONT NORRIS; Protocol Clopidogrel Bisulfate (Clopidogrel 75 Mg Tablet) 75 mg PO DAILY [facility] Last Admin: 01/12/22 02:43 Dose: 75 mg Documented by: Ferrous Sulfate (Ferrous Sulfate Ec 325 Mg Tablet) 325 mg PO DAILY [facility] Last Admin: 01/12/22 09:03 Dose: 325 mg Documented by: Furosemide (Furosemide 10 Mg/Ml Sdv 10ml) 60 mg IVP Q12H [facility] Last Admin: 01/12/22 21:17 Dose: 60 mg Documented by: Heparin Sodium (Porcine) (Heparin 5,000 Unit/Ml Inj 1 Ml) 0 unit IV PRN PRN; Protocol PRN Reason: Heparin weight-base protocol Heparin Sodium (Porcine) (Heparin Lock Flush 500 Unit/5 Ml Syringe) 500 unit IV PRN PRN PRN Reason: At CRRT disconnect Piperacillin Sod/Tazobactam (Sod 3.375 gm/ Sodium Chloride) 50 mls @ 12.5 mls/hr IV Q12H [facility]; Protocol Last Infusion: 01/13/22 05:17 Dose: Infused Documented by: Linezolid (Zyvox Premix) 600 mg in 300 mls @ 300 mls/hr IV Q12H [facility] Last Infusion: 01/12/22 22:57 Dose: Infused Documented by: Heparin Sodium/Sodium Chloride (Heparin Drip) 25,000 unit in 500 mls @ 0 mls/hr IV .Q0M [facility]; Protocol Last Titration: 01/13/22 05:06 Dose: 4.99 unit/kg/hr, 11 mls/hr Documented by: Albumin Human (Albumin) 12.5 gm in 50 mls @ 60 mls/hr IV PRN PRN PRN Reason: Hypotension and/or symptomatic Last Infusion: 01/12/22 15:35 Dose: Infused Documented by: Diltiazem HCl 125 mg/ Sodium (Chloride) 125 mls @ 0 mls/hr IV .Q0M [facility]; Protocol Last Titration: 01/12/22 03:13 Dose: 0 mg/hr, 0 mls/hr Documented by: Amiodarone HCl 900 mg/Dextrose/ IV Miscellaneous Supplies 518 mls @ 0 mls/hr IV .Q0M [facility]; Protocol Last Titration: 01/12/22 19:29 Dose: 1 mg/min, 34.53 mls/hr Documented by: Lactulose (Lactulose Oral Liq 20 Gm/30 Ml Udc) 10 gm PO Q12H [facility] Last Admin: 01/13/22 05:16 Dose: Not Given Documented by: Lorazepam (Lorazepam 2 Mg/Ml Inj 1 Ml) 1 mg IVP ONCE PRN PRN Reason: ANXIETY Last Admin: 01/12/22 20:19 Dose: 1 mg Documented by: Metoprolol Tartrate (Metoprolol Tartrate 25 Mg Tablet) 25 mg PO BID@1000,2200 [facility] Last Admin: 01/12/22 21:17 Dose: 25 mg Documented by: Ondansetron HCl (Ondansetron 2 Mg/Ml Sdv 2 Ml) 4 mg IVP Q8H PRN PRN Reason: vomiting, or N/V if npo Pantoprazole Sodium (Pantoprazole 40 Mg Sdv) 40 mg IVP Q12H [facility] Last Admin: 01/13/22 04:16 Dose: 40 mg Documented by: Sodium Chloride (Sodium Chloride 0.9% 1,000 Ml Bag) 1,000 - 7,000 ml CRRT PRN PRN PRN Reason: For priming CRRT Machine Vitals/I&O/Wt Last Vital Signs Temp 98.7 F 01/13/22 04:00 Pulse 83 01/13/22 06:32 Resp 41 H 01/13/22 04:00 BP 121/66 01/13/22 04:00 Pulse Ox 37 L 01/13/22 06:32 01/12/22 01/12/22 01/13/22 14:59 22:59 06:59 Intake Total 300 / 300 1386.865 / 1686.865 152.233 / 1839.098 Output Total 55 / 55 30 / 85 Balance 300 / 300 1331.865 / 1631.865 122.233 / 1754.098 Weight last 48 hrs Weight 73.3 kg Weight 73.3 kg Weight 73 kg Weight 82.327 kg Weight 110.223 kg Physical Exam Narrative: uncomfortable, bipap, lethargic, tachycardic in a fib heent- nc/at, eomi, anicteric neck supple, rt ij dialysis catheter lungs b/l crackles heart tachy irreg irreg, +OSCAR, + s1, s2 abd soft, tender, poor bs, distended ext 1+ edema neuro- lethargic, sleepy Urinary Catheter Management: Arango: Cath Placed During This Visit: yes Reason for Continuing Indwelling Catheter: Accurate Measurement of Urinary Output in Critically Ill Patients Urinary Catheter Date of Insertion: 01/09/22 Urinary Catheter Time of Insertion: 16:45 Data : 01/13/22 04:04 01/13/22 Unknown Micro: Microbiology 01/11/22 Unknown Urine Culture - Preliminary Urine,Clean Catch A&P Assessment and plan (1) ROXANA (acute kidney injury): 76 yr old man chronic systolic chf, obesity, htn, COPD- home 02 dep, CKD stage 3 1. acute appendicitis- perforated- s/p lap choley and on renal dose abx -remains w/ a leukocytosis. - abx per medicine 2. CKD stage 3a- from obesity, dm, htn, CRS 3. ROXANA- ATN from [facility]arl[facility]-i, hypotension, sepsis -u/a 1+ prot, 3+ blood, 40-50 rbc check c3, c4, ck - renal us- rt 10.5 cm, left 13.4 cm -significant asymmetry -attempted HD on 01/11/22 and did not tolerate well -currently on CRRT- 4 k bath and replacement fluids at 1500 ml/ Qb 200, remove 250 ml/hr as tolerated -monitor labs q 6 hrs 4.bipap per pulm 5. a fib per medicine 6. met acidosis and poor resp compensation -from lactate of 6.1, sepsis, and roxana -consider abd ct scan -may need to be intubated 7 ck [id number]- monitor on crrt 8 low tsh 9. DM control 10. echo w. EF 42%, bnp >70,000 - attempt to remove fluids on dialysis 11. meds reviewed seen and examined w/ RN- telehealth visit condition critical time spent > 35 minutes Status: Acute Plan see above Attestations Medical Necessity Statement*: roxana, a fib, resp distress, lactic acidosis Time Spent in Patient Care: Greater than 35 minutes (>than 50% of time spent in counselling and/or direct pt care on unit) . Critical Care Time: > 35 min Coding Level of Care Code Acute [employer] for [facility] Fwd Diagnoses ROXANA (acute kidney injury) N17.9
--- NOTE | 2022-01-13 07:00 | XR_ITS ---
WS: [id number] XR chest 1V portable [id number] REASON FOR EXAM: sob FINDINGS: Properly positioned double-lumen catheter through the right internal jugular vein with the tip at the cavoatrial junction. The heart and mediastinum are within normal limits. Coarse reticular interstitial lung opacities most of which are chronic chronic and unchanged compared to the previous day(s). However, there may be a new area of interstitial and patchy lung opacity in the mid peripheral right lung field. Elevation of the right hemidiaphragm. No other interval change or new finding. XR/XR chest 1V portable [id number] IMPRESSION: Possible developing pneumonitis in the right lung as above.
--- NOTE | 2022-01-13 07:03 | PC.NURSE ---
Change in patient status 0500 physician notified. Patients Respiratory rate 40-45. Still on bipap titrated down to 30% from 50 throughout shift. Oxygen sats at 99-100. Patient is very lethargic. Decreased LOC. Having difficulty responding with words. Still following commands. Labs reviewed with physician. No new orders.
--- NOTE | 2022-01-13 07:09 | PC.NURSE ---
new orders from Dr. Chacon 0615, fluid removal rate increased to 250ml/hr. Patient became hypotensive. Fluid removal rate titrated down to 180. Patient continues to have increased difficulty breathing. Abdomen distended and firm. Hypo bowel sounds.
[2022-01-13] MEDS: albumin 12.5 GM/50 ML VIAL IV (07:29)
[2022-01-13] MEDS: budesonide 0.5 mg/2 mL Neb INHALATION ×2 (07:52→20:09)
--- NOTE | 2022-01-13 07:59 | XR_ITS ---
WS: [id number] PORTABLE CHEST HISTORY: Post-intubation COMPARISON: 01/13/2022 at 4:18 AM. Patient is status post endotracheal tube placement. Tip ends at the clavicular head level. Should not be retracted. Nasogastric tube is present with tip extending below the GE junction. RIGHT central li ne is present with tip in the distal SVC. Pacer pads are noted over the thorax. Slight elevation RIGHT hemidiaphragm. Mild interstitial thicken ing. No pleural effusion or pneumothorax. Cardiac size: Normal. Mediastinum/Aorta: Mild atherosclerosis aorta. No osseous abnormality seen. XR/XR chest 1V portable [id number] IMPRESSION: 1. Satisfactory placement of the endotracheal tube. 2. Nasogastric tube is present with tip extending below the GE junction. The d istal extent is not included on this examination. 3. Good position of the RIGHT central line.
[2022-01-13] MEDS: sodium chloride 0.9% 500 ML 999 ML IV ×2 (08:07→20:18)
--- NOTE | 2022-01-13 08:14 | PC.NURSE ---
Dr Peres and Dr Castaneda at bedside. Preparing to intubate. Verbal orders to Stop CRRT for intubation received. Auto return in progress.
--- NOTE | 2022-01-13 08:26 | CT_ITS ---
WS: [id number] CT CHEST, ABDOMEN, AND PELVIS TECHNIQUE: Contrast-enhanced CT of the chest, abdomen, and pelvis with coronal and sagittal reformatt ed images. CLINICAL INFORMATION: leukocytosis, nectrotizing appendicits COMPARISON: CT January 09, 2022 DLP: 2739.[address] scans at [facility] use at least one of these dose optimization techniques: automated e xposure control; mA and/or kV adjustment per patient size (includes targeted exams where dose is matc hed to clinical indication); or iterative reconstruction. CT CHEST: Moderate chronic emphysematous changes. Bibasilar atelectasis. Mild compressive atelectasis in the miguelangel ng bases. Mild interstitial edema. Trace pleural fluid. Endotracheal tube with tip above the ivonne. Enteric tube with tip in the stomach. Normal caliber thoracic aorta. Aortic calcification. Proximal main pulmonary arteries appear normal. A few chronic bilateral rib fractures. CT ABDOMEN AND PELVIS: Recent postoperative changes appendectomy. No evidence of drainable fluid collection or abscess. Mini mal edema in the RIGHT lower quadrant about the appendectomy site. Diffuse distention of fluid-filled small bowel with a few air-fluid levels extending to the ileum. Findings likely due to postoperative adynamic ileus. Recommend interval follow-up. Colon is decompressed. Sigmoid diverticulosis. Arango catheter. No free fluid in the abdomen or pelvis. Tiny fat-containing umbilical hernia. Godfrey us excretion of contrast in gallbladder. Diffuse fatty infiltration of the liver. Incidental segmenta l hepatic perfusion. Normal spleen. Distended stomach with enteric tube. Fatty atrophy of the pancrea s. Adrenal glands are normal. Normal renal parenchymal enhancement. No hydronephrosis. Normal caliber abdominal aorta. Aortic calcification. 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 Stenotic calcified celiac and SMA which appear patent. CT/CT chest abd pel w con* IMPRESSION: 1. Tiny bilateral pleural effusions with compressive atelectasis in the lung b ases is new from previous. Volume loss RIGHT lower lobe. 2. No focal pneumonia. Interstitial edema is new from previous. 3. Recent postoperative changes appendectomy. No drainable fluid collection or abscess. 4. Evidence of diffuse small bowel ileus. Recommend interval follow-up. Colon is decompressed. 5. Arango catheter. 6. No free fluid in the abdomen or pelvis. 7. No other significant changes from previous. Notified Richard Castaneda MD at 01/13/2022 11:52 AM.
--- NOTE | 2022-01-13 08:35 | PC.NURSE ---
Addendum entered by Shauna Alva RN 01/13/22 20:12: Dr Peres placed art line, right femoral artery. Original Note: Pt intubated. OG inserted.
[2022-01-13] MEDS: sodium chloride 0.9% 1,000 mL Bag CRRT ×3 (08:38→14:23)
[2022-01-13] MEDS: midazolam 1 mg/mL INJ 2 mL 4 MG IVP (08:39)
[2022-01-13] MEDS: fentaNYL 50 mcg/mL INJ 2mL 100 MCG IVP (08:40)
[2022-01-13] MEDS: sodium bicarbonate 8.4% 1 mEq/mL 50mL Syr 100 MEQ IVP (08:42)
[2022-01-13 08:55] LABS: Albumin Level 3.3 g/dL (3.5-5.2); Anion Gap 26.3 (5-19); Blood Urea Nitrogen 48 mg/dL (8-23); Calcium 8.4 mg/dL (8.5-10.5); Carbon Dioxide 18 mmol/L (22-29); Chloride 95 mmol/L (98-107); Glucose 146 mg/dL (65-115); Magnesium 3.4 mg/dL (1.7-2.3); Phosphorus 6.3 mg/dL (2.5-4.5); Potassium 5.3 mmol/L (3.5-5.1); Sodium 134 mmol/L (136-145)
[2022-01-13 09:17] LABS: ABG PCO2 41.2 mmHg (35-45); ABG PH Result 7.19 (7.35-7.45); Arterial Blood Gas Hematocrit 28.2 % (42-52); Base Excess ABG -11.8 mmol/L (-2.0-2.0); Blood Gas Operator Identificat CAK; Blood Gas Sample Site ARTLINE; Blood Gas Sample Type Arterial; HCO3 ABG 15.7 mmol/L (22-26); Oxygen Device VENT
[2022-01-13] MEDS: metroNIDAZOLE IV 500 MG/100 ML PREMIX 100 MG IV ×2 (09:55→17:47)
[2022-01-13] MEDS: sodium bicarbonate 8.4% 1 mEq/mL 50mL Syr 50 MEQ IVP (10:36)
[2022-01-13 10:42] LABS: Partial Thromboplastin Time 59.5 SECONDS (23.9-36.7)
[2022-01-13 10:55] LABS: Albumin Level 3.2 g/dL (3.5-5.2); Anion Gap 27.6 (5-19); Blood Urea Nitrogen 50 mg/dL (8-23); Calcium 7.9 mg/dL (8.5-10.5); Carbon Dioxide 18 mmol/L (22-29); Chloride 96 mmol/L (98-107); Glucose 129 mg/dL (65-115); Magnesium 3.2 mg/dL (1.7-2.3); Potassium 5.6 mmol/L (3.5-5.1); Sodium 136 mmol/L (136-145)
[2022-01-13] MEDS: iodixanol 320 mg/mL 100mL Btl IV (11:15)
--- NOTE | 2022-01-13 11:37 | PM.PN ---
Subjective Subjective: Patient was acidotic, received CRRT yesterday but became more unresponsive this morning on BiPAP and had to be intubated. He is currently on Levophed and vasopressin and an NG tube was placed and about 800 cc of fluid was aspirated Medications: Reviewed: Yes Vitals/I&O/Wt Last Vital Signs Temp 97.7 F 01/13/22 06:45 Pulse 73 01/13/22 11:32 Resp 24 H 01/13/22 11:32 BP 147/118 01/13/22 06:45 Pulse Ox 96 01/13/22 11:32 01/12/22 01/13/22 01/13/22 22:59 06:59 14:59 Intake Total 1386.865 / 1839.098 152.233 / 1839.098 984.552 / 984.552 Output Total / 85 30 / 85 Balance 1331.865 / 1754.098 122.233 / 1754.098 984.552 / 984.552 Weight last 48 hrs Weight 161 lb 9.581 oz Weight 161 lb 9.581 oz Weight 160 lb 14.999 oz Weight 181 lb 8 oz Physical Exam Narrative: Abdomen: Soft, nondistended, mildly tender, incision clean dry intact Arango and NG tube in place Urinary Catheter Management: Arango: Cath Placed During This Visit: yes Reason for Continuing Indwelling Catheter: Accurate Measurement of Urinary Output in Critically Ill Patients Urinary Catheter Date of Insertion: 01/09/22 Urinary Catheter Time of Insertion: 16:45 Data : 01/13/22 04:04 01/13/22 Unknown Micro: Microbiology 01/11/22 Unknown Urine Culture - Final Urine,Clean Catch A&P Assessment and plan (1) S/P laparoscopic appendectomy: 76-year-old male status post laparoscopic appendectomy for necrotic appendicitis. Continue IV Zosyn and vancomycin Patient continues to be critically ill, on mechanical ventilation, CRRT and on pressor support Medical management as per nephrology and hospitalist service CT chest abdomen pelvis pending Status: Acute Attestations Medical Necessity Statement*: As per primary Coding Level of Care Code Acute Product Manufacturing Professional for g Fwd Diagnoses S/P laparoscopic appendectomy Z90.49
[2022-01-13] MEDS: linezolid premix 600 MG/300 ML PREMIX 300 MG IV (11:57)
[2022-01-13 12:39] LABS: Phosphorus 8.1 mg/dL (2.5-4.5)
[2022-01-13 12:41] LABS: Hematocrit 28.6 % (42.0-52.0); Hemoglobin 9.2 g/dL (11.7-16.6); Mean Corpuscular HGB Conc 32.2 g/dL (30.0-36.0); Mean Corpuscular Hemoglobin 35.4 pg (28.0-34.0); Mean Platelet Volume 10.8 fL (7.4-10.4); Platelet Count 107 10^3/cmm (130-400); Red Cell Distribution Width 15.2 % (12.1-15.1); White Blood Count 18.1 10^3/uL (4.0-10.0)
[2022-01-13 13:07] LABS: Slide Review Slide Review Perform
[2022-01-13 13:08] LABS: Absolute Segmented Neutrophil 8.9 10/cmm (1.6-7.1); Band Neutrophils Absolute 4.7 10^3/cmm (0.0-1.2); Eosinophils 0 %; Lymphocytes 7 %; Lymphocytes Absolute 1.3 10^3/cmm (1.2-3.4); Monocytes Absolute 0.5 10^3/cmm (0.1-0.6); Segmented Neutrophils 49 %; Total Cells Counted 100 (0-100)
[2022-01-13 13:09] LABS: Absolute Neutrophil 13.6 10^3/cmm (1.4-6.5); Platelet Estimate Decreased (Normal)
[2022-01-13] MEDS: amiodarone 200 mg Tablet 400 MG PO (13:16)
[2022-01-13] MEDS: fluconazole premix 200 MG/100 ML PREMIX 100 MG IV (13:18)
[2022-01-13 13:45] LABS: ABG PCO2 42.5 mmHg (35-45); ABG PH Result 7.18 (7.35-7.45); Arterial Blood Gas Hematocrit 27.9 % (42-52); Blood Gas Operator Identificat CAK; Blood Gas Sample Site ARTLINE; Blood Gas Sample Type Arterial; Carboxyhemoglobin 0.5 %THgb (0.4-20.1); HCO3 ABG 15.7 mmol/L (22-26); HGB O2 Sat 95.3 % (95-100); Ionized Calcium Level - ABG 0.9 mmol/L (1.1-1.4); Methemoglobin 1.1 % (0.4-1.5); Oxygen Device VENT; Oxygen Saturation ABG 96.8; Potassium Level - ABG 4.8 mmol/L (3.5-5.0); Total Hemoglobin 9.1 g/dL (14-18)
[2022-01-13 14:18] LABS: Albumin Level 2.7 g/dL (3.5-5.2); Blood Urea Nitrogen 54 mg/dL (8-23); Calcium 7.3 mg/dL (8.5-10.5); Carbon Dioxide 15 mmol/L (22-29); Chloride 92 mmol/L (98-107); Glucose 154 mg/dL (65-115); Magnesium 3.3 mg/dL (1.7-2.3); Sodium 132 mmol/L (136-145)
[2022-01-13 14:21] LABS: Phosphorus 7.9 mg/dL (2.5-4.5)
--- NOTE | 2022-01-13 14:33 | PC.HD ---
Called for emergency dialysis. Pt dyspneic and tachypneic on bipap with P 100s. RIJ temporary catheter had been placed and PCXR done to confirm placement. Pt transferred to a dialysis capable room. During transfer, O2 sat decreased but recovered once bipap reapplied, but pt having more irregular pulse with short runs of faster rate. Treatment initiated. Heartrate continued to increase until approx 20 minutes into treatment, P up to 160s - 170s and O2 sat decreased to 87% briefly but repeatedly, pt admits to feeling dizzy. UF off but P remained 160s to 170s so blood returned and ports flushed, machine recirculating while staff work with pt. Dr Chacon updated by text, and he called back to see pt via [facility]. EKG done and nurse waiting on a cardiezem gtt from Pharmacy. Orders rec'd from Dr Isaac not to restart treatment treatment tonight. Cath ports heparinized and capped. Pt remains awake and alert.
[2022-01-13] MEDS: heparin 5,000 unit/mL INJ 1 mL IV (14:47)
--- NOTE | 2022-01-13 15:13 | PM.PN ---
Subjective Subjective: Patient was seen this morning, overnight he was afebrile, tachycardic, tachypneic, currently on Levophed to maintain his map around 65 -During my examination patient is morning, he would not awaken to sternal rub, was quite tachypneic, had mottling up to the level of the stomach -Due to concerns of acute hypoxic respiratory failure, septic shock I discussed with Dr. Peres and proceeded with intubation -Patient was intubated by Dr. Peres, art line placed, placed on fentanyl, Versed, placed on Levophed, vasopressin for maintain map around 65 -Immediately I was concerned for aspiration pneumonia, as NG tube was inserted, had over 700 cc of bilious fluid suctioned -In addition given his abdominal distention, mottling up to the level of the stomach, lactic acidosis, was concerned for intra-abdominal pathology -Patient was taken to CT, I attended this, no hypotension episodes, he maintained his sats greater than 90, transported back to ICU -I remained at bedside, his maps remained at approximately 65, O2 sats currently 90, still appears mottled from lower extremities up to the level abdomen, remains intubated, remains on sedation remains on vasopressin, Levophed for maintaining blood pressure, is being weaned off amiodarone, remains on heparin drip given atrial fibrillation -CT scan, it does not show any randa perforation, or anastomosis leak,, no abscess, did show ileus, no free fluid, does show bilateral pleural effusions, component of aspiration pneumonia -Likely patient has developed acute hypoxic respiratory failure secondary to aspiration pneumonia, and acute encephalopathy -He also has acute encephalopathy secondary to lactic acidosis, acidemia -I am still concerned for intra-abdominal pathology, given elevated lactic acid, distended belly, mottling appearance of belly -He is in septic shock, is on multiple pressors, broad-spectrum antibiotic therapy -He is receiving CRRT this afternoon I discussed with family at bedside, multiple times, family is aware, -I discussed with family as above, patient's acute hypoxic respiratory failure, septic shock, aspiration pneumonia, acute encephalopathy, lactic acidosis, acidemia, acute renal failure -Nonetheless I am still concerned about intra-abdominal pathology given elevated lactic acid, possible ischemic bowel, however no pneumatosis Coli, but will continue to monitor, serial abdominal exams -Discussed the patient's currently critically ill, prognosis is guarded -We will continue to keep them updated Vitals/I&O/Wt Last Vital Signs Temp 97.7 F 01/13/22 06:45 Pulse 72 01/13/22 11:44 Resp 30 H 01/13/22 13:35 BP 147/118 01/13/22 06:45 Pulse Ox 94 01/13/22 13:35 01/13/22 01/13/22 01/13/22 06:59 14:59 22:59 Intake Total 152.233 / 0061.915 7738.297 / 192.297 Output Total Balance 122.233 / 4066.675 5174.297 / 1921.297 Weight last 48 hrs Weight 73.3 kg Weight 73.3 kg Weight 73 kg Weight 82.327 kg Physical Exam Const: COMMON NORMALS: no acute distress and patient oriented x3 HENMT: OTHER: Intubated, sedated, on mechanical ventilation Resp: COMMON NORMALS: normal respiratory effort, No retractions, No use of accessory muscles and clear to auscultation bilaterally AUSCULTATION: clear to auscultation bilaterally Cardio: COMMON NORMALS: regular rate, regular rhythm, S1 normal heart sound present and S2 normal heart sound present RATE: regular rate RHYTHM: regular rhythm HEART SOUNDS: S1 normal heart sound present and S2 normal heart sound present GI: INSPECTION: Yes abdominal distension AUSCULTATION: Yes Hypoactive bowel sounds present PALPATION: No Firmness to palpation present (GI), No Guarding due to palpation present (GI) and No Rigid due to palpation OTHER: Mottling up to the level of the abdomen Neuro: COMMON NORMALS: patient oriented x3 Psych: COMMON NORMALS: mental status grossly normal Urinary Catheter Management: Arango: Cath Placed During This Visit: yes Reason for Continuing Indwelling Catheter: Accurate Measurement of Urinary Output in Critically Ill Patients Urinary Catheter Date of Insertion: 01/09/22 Urinary Catheter Time of Insertion: 16:45 Sepsis: Is patient septic: Yes Focused sepsis exam performed: Yes Focused sepsis exam: DP PT pulses barely palpable, mottling of bilateral lower extremities up to the level of the abdomen, pallor of the skin, tachypnea Data : 01/13/22 12:22 01/13/22 Unknown Micro: Microbiology 01/11/22 Unknown Urine Culture - Final Urine,Clean Catch A&P Assessment and plan (1) Septic shock: Status: Acute (2) Lactic acidosis: Status: Acute (3) Acidemia: Status: Acute (4) NSTEMI (non-ST elevated myocardial infarction): Status: Acute (5) Appendicitis with perforation: Status: Acute (6) CAD (coronary artery disease): Status: Acute (7) Sepsis: Status: Acute (8) ROXANA (acute kidney injury): Status: Acute (9) NSTEMI (non-ST elevated myocardial infarction): Status: Acute (10) Systolic CHF: Status: Acute (11) COPD exacerbation: Status: Acute (12) Acute respiratory failure with hypoxia: Status: Acute Plan Acute appendicitis with small amount of free air seen on CT an sepsis -Acute necrotic appendicitis, status post laparoscopic appendectomy -Currently n.p.o. -Febrile, WBC 35, remains afebrile -Continue Zosyn and vancomycin for antibiotic coverage, add Flagyl, add fluconazole -With evidence of sepsis -Telemetry monitoring -Serial abdominal exams -Status post andexxa for reversal of Eliquis, in preparation for surgery -Repeat CT scan shows 1.? Tiny bilateral pleural effusions with compressive atelectasis in the lung bases is new from previous. Volume loss RIGHT lower lobe. 2.? No focal pneumonia. Interstitial edema is new from previous. 3.? Recent postoperative changes appendectomy. No drainable fluid collection or abscess. 4.? Evidence of diffuse small bowel ileus. Recommend interval follow-up. Colon is decompressed. 5.? Arango catheter. 6.? No free fluid in the abdomen or pelvis. 7.? No other significant changes from previous. -No evidence of randa perforation, free air, drainable fluid or abscess or pneumatosis Coli -But given lactic acid, still concern for intra-abdominal source, possible ischemic colitis, continue heparin drip, continue serial abdominal exams -Admit to ICU -Full code -SCDs, heparin for DVT prophylaxis Acute hypoxia respiratory failure secondary to fluid overload, systolic and diastolic diastolic CHF, aspiration pneumonia, septic shock Plan -Currently intubated, sedated -Minimize FiO2, minimize tidal volume -Fentanyl, Versed for sedation -Maintain map more than 65, on vasopressin, Levophed -Antibiotics as above -Urine output minimal, acute renal failure -Currently on CRRT -For acidemia, has received 2 bicarb pushes, on bicarb drip -Monitor respiratory status closely -Continue nebulizer treatments, budesonide -Critically ill, prognosis guarded, family updated septic shock secondary to aspiration pneumonia, acute necrotic appendicitis -as above Lactic acidosis, acidemia -As above Acute renal failure on chronic kidney disease -Creatinine 6.0 -Receiving CRRT -Monitor renal function monitor urine output -Nephrology consulted CAD with NSTEMI -Cannot rule out underlying cardiac etiology given underlying risk factors -Baseline troponin 52, 6-hour 735.9 -However elevated troponins likely secondary to sepsis, acute respiratory failure -1.? This is a technically difficult study.? Optison was used per ?protocol. ?2.? Normal left ventricular cavity size. Mildly decreased left ?ventricular systolic function. Left ventricular ejection ?fraction is estimated at 42 % by modified biplane method and 40- ?45% visually.? There seems to be moderate hypokinesis of mid to ?apical anteroseptal and apical perera.? Abnormal septal motion ?consistent with conduction abnormality. ?3. Normal right ventricular size and systolic function. ?4.? Possible mild aortic stenosis with peak velocity 2.6 m/s, ?peak gradient 28 mmHg, mean gradient 13 mmHg.? Aortic valve area ?by continued equation of 1.2 cm squared (LVOT not well visualized). ?5.? No prior similar studies to compare. -Serial EKGs, serial troponins, telemetry monitoring Atrial fibrillation with rapid ventricular response, currently rate controlled -Continue heparin drip -Currently on p.o. amiodarone -Monitor in the ICU Elevated lactic acid, secondary to acute appendicitis perforation above Sepsis secondary acute appendicitis, perforation as above Attestations Medical Necessity Statement*: Patient requires hospitalization for acute hypoxic respiratory failure, septic shock, aspiration pneumonia, acute renal failure, NSTEMI, critical care time spent over an hour and a half Critical Care Time: 1.5 hours Coding Level of Care Code Acute Assistant Media Planner for [facility] Fwd Diagnoses Septic shock A41.9; R65.21 Lactic acidosis E87.2 Acidemia E87.2 NSTEMI (non-ST elevated myocardial infarction) I21.4 Appendicitis with perforation K35.32 CAD (coronary artery disease) I25.10 Sepsis A41.9 ROXANA (acute kidney injury) N17.9 NSTEMI (non-ST elevated myocardial infarction) I21.4 Systolic CHF I50.20 COPD exacerbation J44.1 Acute respiratory failure with hypoxia J96.01
--- NOTE | 2022-01-13 15:22 | PM.ACPR ---
Procedure/Consent Consent: Additional Consent Information: Emergency procedure Procedure Narrative: Name of the procedure: Endotracheal intubation. Indication: Hypoxic respiratory failure, metabolic acidosis, altered mental status Medications: Etomidate 20 mg, Versed 2 mg Procedure: The patient was positioned optimally. The patient was oxygenated with 100% oxygen with noninvasive ventilator. After appropriate medications were given, the glide scope blade was introduced and advanced till vocal cords were visualized. The endotracheal tube was advanced through the vocal cords under direct visualization. There was fogging of the ET tube, positive change in end-tidal CO2 monitor, bilateral chest rise, bilateral positive breath sound. The ET tube was secured at 23 cm at the lips. Complications: There was no immediate complications. Chest x-ray: The endotracheal tube is in optimal position
--- NOTE | 2022-01-13 15:23 | PM.ACPR ---
Procedure/Consent Consent: Additional Consent Information: Emergency procedure Procedure Narrative: Name of procedure: Left femoral arterial catheter placement Medications: 1% lidocaine, 5 mm Description of the procedure: The procedure was performed during emergency. The site was prepared using sterile technique. The left femoral artery was identified under ultrasound guidance from pulsatility. Under ultrasound guidance the introducer needle was advanced till flash back was noted. Pulsatile bright red blood was noted. Using Seldinger technique the left femoral arterial line was inserted. The catheter was secured with 2-0 silk suture and Tegaderm. Complications: None.
--- NOTE | 2022-01-13 15:34 | ECG_ITS ---
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 Measurements Intervals [place] Rate: 77 P: -56 [place]: 130 QRS: 28 QRSD: 161 T: 199 QT: 429 QTc: 488 Interpretive Statements SINUS RHYTHM LEFT BUNDLE BRANCH BLOCK [120+ ms QRS DURATION, 80+ ms Q/S IN V1/V2, 85+ ms R IN I/aVL/V5/V6] Compared to ECG 01/11/2022 23:46:32 Atrial fibrillation no longer present Aberrant conduction of supraventricular beat(s) no longer present Ventricular premature complex(es) no longer present Electronically Signed On 01-13-2022 16:13:59 CDT by Kuldip Wyatt M.D. [id number]
--- NOTE | 2022-01-13 15:39 | USCV_ITS ---
Harpreet Pablo Age: 76 Gender: M : 1945 Exam Date: 01/13/2022 15:53 Ordering Phys: Richard Castaneda MD Technologist: Paul Georges Exam Location: [facility] [place] [facility] [place] Indication: Re-evaluate EF BP: 116 / 37 HR: 79 Rhythm: Sinus Technical Quality: Technically difficult study MEASUREMENTS (Male / Female) Normal Values 2D ECHO LV Ejection Fraction MOD 2C 44.1 % LV Ejection Fraction 2C AL 44.4 % FINDINGS Left Ventricle Right Ventricle Right Atrium Left Atrium Mitral Valve Aortic Valve Tricuspid Valve Pulmonic Valve Pericardium Aorta CONCLUSIONS This is a limited echocardiogram performed to assess LV systolic function. Limited quality echocardiogram because of poor ultrasonic windows. Grossly LV systolic function is moderate to severely reduced. Accurate assessment of regional wall motion abnormalities cannot be performed because of poor ultrasonic windows. Recommend evaluating LV function with echo with contrast Jose Guadalupe Granda MD (Electronically Signed) Final Date: 13 January 2022 17:35 S
--- NOTE | 2022-01-13 16:20 | PC.NURSE ---
Restraints: Reflex order with ntubatin. Restraints not needed, pt obtunded and now sedated.
--- NOTE | 2022-01-13 16:30 | PC.NURSE ---
Pt's temp decreasing. CRRT in progress. Blood warmer at 43 degrees Celsius. Mottling is spreading up past patient's trunk involving his upper chest /shoulders and neck now.. Dr Castaneda , came to pt's room, made aware. Ra cintron started.
[2022-01-13 16:58] LABS: Troponin(5th) Baseline 669 ng/L (0-15)
--- NOTE | 2022-01-13 17:34 | ECG_ITS ---
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 Measurements Intervals [place] Rate: 75 P: -58 [place]: 141 QRS: 35 QRSD: 161 T: 187 QT: 439 QTc: 491 Interpretive Statements SINUS RHYTHM WITH SINUS ARRHYTHMIA LEFT BUNDLE BRANCH BLOCK [120+ ms QRS DURATION, 80+ ms Q/S IN V1/V2, 85+ ms R IN I/aVL/V5/V6] Compared to ECG 01/13/2022 16:08:26 No significant changes Electronically Signed On 01-14-2022 16:12:12 CDT by Jose Guadalupe Granda M.D. [email or web address]/store/[id number]
[2022-01-13] MEDS: lactulose oral liq 20 gm/30 mL UDC 10 GM PO (17:48)
[2022-01-13 17:54] LABS: ABG PCO2 57.7 mmHg (35-45); Alveolar-Arterial Oxygen Gradi 62.9 mmHg (5-10); Arterial Blood Gas Hematocrit 31.4 % (42-52); Base Excess ABG -16.5 mmol/L (-2.0-2.0); Blood Gas Operator Identificat CAK; Blood Gas Sample Type Arterial; Carboxyhemoglobin 0.3 %THgb (0.4-20.1); HCO3 ABG 14.3 mmol/L (22-26); HGB O2 Sat 88.2 % (95-100); Methemoglobin 1.1 % (0.4-1.5); Oxygen Device VENT; Oxygen Saturation ABG 89.5; PO2 ABG 84.8 mmHg (80.0-100.0); Potassium Level - ABG 4.9 mmol/L (3.5-5.0); Total Hemoglobin 10.2 g/dL (14-18)
[2022-01-13 17:55] LABS: Blood Gas Sample Site ARTLINE
[2022-01-13 18:19] LABS: Reflex Lactate Order REFLEX LACTIC ORDERD
[2022-01-13 18:54] LABS: Fibrinogen 716 mg/dL (174-498); INR 3.28 (0.8-1.2)
--- NOTE | 2022-01-13 19:00 | PC.NURSE ---
Bedside report with DIAMOND Rolon. Pt remains mottled, on CRRT. His heart rate is starting to trend down slightly.
[2022-01-13 19:01] LABS: Albumin Level 2.6 g/dL (3.5-5.2); Anion Gap 29.4 (5-19); Blood Urea Nitrogen 43 mg/dL (8-23); Calcium 7.3 mg/dL (8.5-10.5); Carbon Dioxide 14 mmol/L (22-29); Chloride 94 mmol/L (98-107); Glucose 91 mg/dL (65-115); Magnesium 3.3 mg/dL (1.7-2.3); Partial Thromboplastin Time 71.4 SECONDS (23.9-36.7); Potassium 5.4 mmol/L (3.5-5.1); Sodium 132 mmol/L (136-145)
[2022-01-13 19:04] LABS: D Dimer 4.36 ug/mIFEU (0-0.59); Partial Thromboplastin Time 73.8 SECONDS (23.9-36.7)
[2022-01-13] MEDS: norepinephrine 8 MG in dextrose 5 % 500 ML 76.2 MG IV (19:19)
--- NOTE | 2022-01-13 19:48 | PC.NURSE ---
Patient status change. Blood pressure map 46. Hospitalist notified with orders to start dipamine gtt. Dr. Chacon notified of patient condition with orders to stop fluid removal on CRRT with 500ml Normal Saline bolus. Call back with patient status with fluid bolus.
[2022-01-13 19:51] LABS: Troponin 5 2HR 789.1 ng/L (0-15); Troponin 5 2HR Delta 120.1 ABS# (0-10)
[2022-01-13 19:52] LABS: Phosphorus 9.4 mg/dL (2.5-4.5)
[2022-01-13] MEDS: DOPamine drip 400 MG/250 ML PREMIX 15.44 MG IV (20:00)
--- NOTE | 2022-01-13 20:22 | PC.NURSE ---
Shift Note: Pt obtunded and tachypneic at beginning of shift, became hypotensive. Albumin and NS bolus given. Decision made to intubate pt. CRRT stopped. Pt intubated, , Levophed and Vasopressin gtts started. right femoral art line started and OG inserted. Xray obtained to check placements. Fentanyl, Versed and Bicarb gtts started. Heparin stopped, for possible back to surgery. CT of abdomen/pelvis obtained. Heparin gtt restarted. Flagyl and Flucanozole: antibiotics started today. CRRT restarted but with no fluid removal. Pt tolerated CRRT, No ectopy noted on monitor. B/P stable enough to reduce the Vasopressin gtt from 01 unit/hour to 0.04unit/hour towards end of shift. Labs drawn, his troponins an lactic acids critically high. ABGs done. , Ph critical at 7. Dr Castaneda and Dr Peter aware. Sodium Bicarb fluid rate increased to 125. Pt anuric with 15 ml of urine this shift. Bowel sounds very diminished if not absent. Pt's mottling has progressed through the shift. His heart rate had started to decrease at the end of the shift. Family has been at bedside, off and on, throughout shift. Family updated throughout shift by physicians and this nurse. Frequent safety and comfort rounds continue. Orders and/or nursing care completed as indicated. Patient monitored for response to intervention and treatment(s). Education provided includes Ongoing plan of care, pt's condition critical, Results of CT and labs, new and continued medications . Patient's representatives verbalized understanding of all education topics and asked questions .. Will continue to monitor.
[2022-01-13] MEDS: DOBUTamine drip 500 MG/250 ML PREMIX 12.35 MG IV (21:10)
--- NOTE | 2022-01-13 21:34 | ECG_ITS ---
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 Measurements Intervals [place] Rate: 71 P: -20 [place]: 204 QRS: 38 QRSD: 191 T: 192 QT: 432 QTc: 473 Interpretive Statements SINUS RHYTHM LEFT BUNDLE BRANCH BLOCK [120+ ms QRS DURATION, 80+ ms Q/S IN V1/V2, 85+ ms R IN I/aVL/V5/V6] Compared to ECG 01/13/2022 17:30:58 Sinus arrhythmia no longer present Electronically Signed On 01-14-2022 16:11:35 CDT by Jose Guadalupe Granda M.D. [email or web address]/store/[id number]
--- NOTE | 2022-01-13 22:21 | P.DS_ITS ---
Discharge Providers Date of Admission: 01/09/22 14:59 Date of Discharge: January 13, 2022 Attending Provider at Admission: Richard Castaneda MD Attending Provider at Discharge: Doctor Salinas Primary Care Provider: Jason Rivas MD Diagnoses at Discharge Discharge Diagnosis (1) Septic shock: Details from hospital stay: Harpreet Pablo is a 76 year old male with a past medical history of emphysema on 3 L nasal cannula, history of atrial fibrillation on Eliquis, he took his Eliquis this morning, history of systolic CHF, EF around 40%, history of CAD, no history of stents, he tells me that he had four-vessel disease so they could not put in stents, but he has had 2 heart attacks, chronic kidney disease stage unknown, who presents to [facility] due to sudden onset abdominal pain.? Currently patient's blood pressures 100s over 50s, heart rates in low 100s, he is breathing 20-30 times a minute, and severe pain, he actually wants to move off the gurney because he has severe pain in the right lower quadrant and left lower quadrant, he is feeling very nauseous, denies any bloody or black stools, denies any vomiting blood.? It is difficult to get a history from patient as he is in such severe pain, getting fentanyl.? He tells me that this morning he felt increasingly short of breath, he had trouble catching his breath, no chest pain, no palpitations, he has severe right lower quadrant abdominal pain over the last day, last bowel movement over a day ago, in the emergency room he was found to have perforated appendicitis, given a liter bolus of fluid, currently on 4 L, blood pressures are soft, is tachycardic, tachypneic, he took Eliquis this morning, INR within normal limits, hemoglobin within normal limits, elevated lactic acid, elevated BNP, elevated troponins.? On exam abdomen is tense, significant tenderness on exam, has guarding, has rebound, has rigidity, has acute surgical abdomen.? I discussed with patient and family at bedside that patient as he has a significant cardiovascular history, emphysema history history of chronic renal failure, and as he is on Eliquis, he does carry measurable risk for surgery in clinic when a limited to bleeding, cardiac arrest.? They voiced understanding, all questions answered, agreed to proceed as patient has surgical abdomen.? Issue is that patient took Eliquis this morning, 5 mg, has significant risk of bleeding during surgery, especially as he has a perforated viscus, discussed with Dr. William, agreeable to proceed with surgery, agreeable with patient getting reversal agent andexxa.? Plan is for patient to get andexxa proceed with surgical intervention at roughly 4 PM. Status: Acute Permanent problem details: Acute on chronic respiratory failure requiring intubation on January 13, 2022, the patient typically is O2 dependent via nasal cannula at 3 L/min for COPD Atrial for ablation CHF, ejection fraction 40% Coronary artery disease, status post IA Acute on chronic kidney disease requiring hemodialysis Seasonal allergies Hypertension GERD Hyperlipidemia Macrocytic anemia Number cytopenia Coagulopathy Hyponatremia Hyperkalemia Hyperphosphatemia Transaminitis Elevated troponin, query ACS Hyperuricemia Ileus (2) Lactic acidosis: Status: Acute (3) Acidemia: Status: Acute (4) NSTEMI (non-ST elevated myocardial infarction): Status: Acute (5) Appendicitis with perforation: Status: Acute (6) CAD (coronary artery disease): Status: Acute (7) Sepsis: Status: Acute (8) ROXANA (acute kidney injury): Status: Acute (9) NSTEMI (non-ST elevated myocardial infarction): Status: Acute (10) Systolic CHF: Status: Acute (11) COPD exacerbation: Status: Acute (12) Acute respiratory failure with hypoxia: Status: Acute Reason for Visit Reason for Visit: SOB; N/V/D Brief History: Appendicitis with perforation Hospital Course Hospital Course Harpreet Cherelle Samy is a 76 year old male with a past medical history of emphysema on 3 L nasal cannula, history of atrial fibrillation on Eliquis, he took his Eliquis this morning, history of systolic CHF, EF around 40%, history of CAD, no history of stents, he tells me that he had four-vessel disease so they could not put in stents, but he has had 2 heart attacks, chronic kidney disease stage unknown, who presents to [facility] due to sudden onset abdominal pain.? Currently patient's blood pressures 100s over 50s, heart rates in low 100s, he is breathing 20-30 times a minute, and severe pain, he actually wants to move off the gurney because he has severe pain in the right lower quadrant and left lower quadrant, he is feeling very nauseous, denies any bloody or black stools, denies any vomiting blood.? It is difficult to get a history from patient as he is in such severe pain, getting fentanyl.? He tells me that this morning he felt increasingly short of breath, he had trouble catching his breath, no chest pain, no palpitations, he has severe right lower quadrant abdominal pain over the last day, last bowel movement over a day ago, in the emergency room he was found to have perforated appendicitis, given a liter bolus of fluid, currently on 4 L, blood pressures are soft, is tachycardic, tachypneic, he took Eliquis this morning, INR within normal limits, hemoglobin within normal limits, elevated lactic acid, elevated BNP, elevated troponins.? On exam abdomen is tense, significant tenderness on exam, has guarding, has rebound, has rigidity, has acute surgical abdomen.? I discussed with patient and family at bedside that patient as he has a significant cardiovascular history, emphysema history history of chronic renal failure, and as he is on Eliquis, he does carry measurable risk for surgery in clinic when a limited to bleeding, cardiac arrest.? They voiced understanding, all questions answered, agreed to proceed as patient has surgical abdomen.? Issue is that patient took Eliquis this morning, 5 mg, has significant risk of bleeding during surgery, especially as he has a perforated viscus, discussed with Dr. William, agreeable to proceed with surgery, agreeable with patient getting reversal agent andexxa.? Plan is for patient to get andexxa proceed with surgical intervention at roughly 4 PM. Physical Exam Narrative: General: -Alert -No acute distress -No dyspnea -No tachypnea Head: -Atraumatic -Normocephalic Eyes: -Pupils equally round and reactive to light and accommodation -Extraocular muscles intact Neurological: -Cranial nerves II-XII intact Neck: -No jugular venous distention -No thyromegaly -No cervical lymphadenopathy Heart: -Regular rate -Regular rhythm -No murmurs -No gallops -No rubs Lungs: -No wheeze -No rhonchi -No rales ? Abdomen: -Normal bowel sounds in all four quadrants -No rebound -No guarding -No tenderness Extremities: -2/4 pulse in all four extremities -No clubbing -No cyanosis -No edema -No calf tenderness present bilaterally -Negative Tom?s sign bilaterally Musculoskeletal: -5/5 bilateral upper extremity strength -5/5 bilateral lower extremity strength -Sensorium of bilateral upper extremities are equal and intact -Sensorium of bilateral lower extremities are equal and intact ? Additional Details / Additional Findings / Exceptions / Miscellaneous: Urinary Catheter Management: Arango: Cath Placed During This Visit: yes Reason for Continuing Indwelling Catheter: Accurate Measurement of Urinary Output in Critically Ill Patients Urinary Catheter Date of Insertion: 01/09/22 Urinary Catheter Time of Insertion: 16:45 Discharge Data Studies Completed and Pending Completed Studies During Hospitalization Category Date Time Status CT angio chest w abd pel w con Urgent Cat Scan 01/09/22 11:[address] chest abd pel w con* Stat Cat Scan 01/13/22 08:26 Completed CXRP [XR chest 1V portable [id number]] Stat Exams 01/11/22 17:11 Completed XR KUB portable [id number] Routine Exams 01/11/22 06:00 Completed XR abdomen 1V* [id number] Stat Exams 01/09/22 20:37 Completed XR chest 1V [id number] Stat Exams 01/09/22 20:37 Completed XR chest 1V portable [id number] NOW Exams 01/11/22 20:21 Completed XR chest 1V portable [id number] Routine Exams 01/11/22 07:00 Completed XR chest 1V portable [id number] Routine Exams 01/13/22 07:00 Completed XR chest 1V portable [id number] Stat Exams 01/09/22 10:34 Completed XR chest 1V portable [id number] Stat Exams 01/13/22 07:59 Completed Pathology: Surgical [PTH] Routine Pth 01/09/22 17:27 Completed CV. echo limited [id number] Routine Ultrasound 01/13/22 15:39 Completed CV. echo wo/w contrast [id number] Urgent Ultrasound 01/11/22 09:11 Completed US renal BI* [id number] Routine Ultrasound 01/11/22 09:12 Completed Pending at discharge Category Date Time Status ES surgery / GI images Routine Exams 01/09/22 15:51 Taken XR chest 1V portable [id number] Routine Exams 01/14/22 07:00 Ordered Arterial Blood Gas W/O Coox AM LABS Lab 01/14/22 04:00 Ordered Arterial Blood Gas W/O Coox AM LABS Lab 01/14/22 04:00 Ordered Arterial Blood Gas W/O Coox AM LABS Lab 01/15/22 04:00 Ordered Arterial Blood Gas W/O Coox AM LABS Lab 01/15/22 04:00 Ordered Arterial Blood Gas W/O Coox AM LABS Lab 01/16/22 04:00 Ordered Blood Culture Stat Lab 01/09/22 12:35 Results C Reactive Protein AM LABS Lab 01/14/22 04:00 Ordered C Reactive Protein AM LABS Lab 01/15/22 04:00 Ordered Complete Blood Count w/Auto AM LABS Lab 01/14/22 04:00 Ordered Complete Blood Count w/Auto AM LABS Lab 01/14/22 04:00 Ordered Complete Blood Count w/Auto AM LABS Lab 01/15/22 04:00 Ordered Complete Blood Count w/Auto AM LABS Lab 01/16/22 04:00 Ordered Comprehensive Metabolic Panel AM LABS Lab 01/14/22 04:00 Ordered Comprehensive Metabolic Panel Timed Lab 01/14/22 18:00 Ordered Creatine Phosphokinase AM LABS Lab 01/14/22 04:00 Ordered Creatine Phosphokinase AM LABS Lab 01/14/22 04:00 Ordered Creatine Phosphokinase AM LABS Lab 01/15/22 04:00 Ordered Creatine Phosphokinase AM LABS Lab 01/15/22 04:00 Ordered Creatine Phosphokinase AM LABS Lab 01/16/22 04:00 Ordered Ferritin AM LABS Lab 01/14/22 04:00 Ordered Ferritin AM LABS Lab 01/15/22 04:00 Ordered Ferritin AM LABS Lab 01/16/22 04:00 Ordered Lactate (Lactic Acid level) AM LABS Lab 01/14/22 04:00 Ordered Lactate (Lactic Acid level) AM LABS Lab 01/14/22 04:00 Ordered Lactate (Lactic Acid level) AM LABS Lab 01/15/22 04:00 Ordered Lactate (Lactic Acid level) AM LABS Lab 01/15/22 04:00 Ordered Lactate (Lactic Acid level) AM LABS Lab 01/16/22 04:00 Ordered Magnesium AM LABS Lab 01/14/22 04:00 Ordered Magnesium Q4H Lab 01/14/22 02:15 Ordered Magnesium Q4H Lab 01/14/22 06:15 Ordered Magnesium Q4H Lab 01/14/22 10:15 Ordered Magnesium Q4H Lab 01/14/22 14:15 Ordered Magnesium Q4H Lab 01/14/22 18:15 Ordered Magnesium Q4H Lab 01/14/22 22:15 Ordered Magnesium Q4H Lab 01/15/22 02:15 Ordered Magnesium Q4H Lab 01/15/22 06:15 Ordered Magnesium Q4H Lab 01/15/22 10:15 Ordered Magnesium Q4H Lab 01/15/22 14:15 Ordered Magnesium Q4H Lab 01/15/22 18:15 Ordered Magnesium Q4H Lab 01/15/22 22:15 Ordered Magnesium Q4H Lab 01/16/22 02:15 Ordered Magnesium Q6H Lab 01/14/22 01:45 Ordered Magnesium Q6H Lab 01/14/22 02:15 Ordered Magnesium Q6H Lab 01/14/22 07:45 Ordered Magnesium Q6H Lab 01/14/22 08:15 Ordered Magnesium Q6H Lab 01/14/22 13:45 Ordered Magnesium Q6H Lab 01/14/22 14:15 Ordered Magnesium Q6H Lab 01/14/22 19:45 Ordered Magnesium Q6H Lab 01/14/22 20:15 Ordered Magnesium Q6H Lab 01/15/22 01:45 Ordered Magnesium Q6H Lab 01/15/22 02:15 Ordered Magnesium Q6H Lab 01/15/22 07:45 Ordered Magnesium Q6H Lab 01/15/22 08:15 Ordered Magnesium Q6H Lab 01/15/22 14:15 Ordered Magnesium Q6H Lab 01/15/22 20:15 Ordered Magnesium Q6H Lab 01/16/22 02:15 Ordered Magnesium Q6H Lab 01/16/22 08:15 Ordered Magnesium Q6H Lab 01/16/22 14:15 Ordered Miscellaneous Test Routine Lab 01/13/22 18:19 Received NT Pro B Type Natriuretic Pept QAM Lab 01/14/22 06:00 Ordered NT Pro B Type Natriuretic Pept QAM Lab 01/14/22 06:00 Ordered NT Pro B Type Natriuretic Pept QAM Lab 01/15/22 06:00 Ordered NT Pro B Type Natriuretic Pept QAM Lab 01/15/22 06:00 Ordered NT Pro B Type Natriuretic Pept QAM Lab 01/16/22 06:00 Ordered Partial Thromboplastin Time Q4H Lab 01/14/22 02:15 Ordered Phosphorus AM LABS Lab 01/14/22 04:00 Ordered Platelet Count Q2D Lab 01/15/22 04:00 Ordered Procalcitonin AM LABS Lab 01/14/22 04:00 Ordered Procalcitonin AM LABS Lab 01/15/22 04:00 Ordered Prothrombin Time INR AM LABS Lab 01/14/22 04:00 Ordered Prothrombin Time INR AM LABS Lab 01/14/22 04:00 Ordered Prothrombin Time INR AM LABS Lab 01/15/22 04:00 Ordered Prothrombin Time INR AM LABS Lab 01/15/22 04:00 Ordered Prothrombin Time INR AM LABS Lab 01/16/22 04:00 Ordered Renal Function Panel Q Lab 01/14/22 02:15 Ordered Renal Function Panel Q Lab 01/14/22 06:15 Ordered Renal Function Panel Q Lab 01/14/22 10:15 Ordered Renal Function Panel Q Lab 01/14/22 14:15 Ordered Renal Function Panel Q Lab 01/14/22 18:15 Ordered Renal Function Panel Q Lab 01/14/22 22:15 Ordered Renal Function Panel Q Lab 01/15/22 02:15 Ordered Renal Function Panel Q Lab 01/15/22 06:15 Ordered Renal Function Panel Q Lab 01/15/22 10:15 Ordered Renal Function Panel Q Lab 01/15/22 14:15 Ordered Renal Function Panel Q Lab 01/15/22 18:15 Ordered Renal Function Panel Q Lab 01/15/22 22:15 Ordered Renal Function Panel Q Lab 01/16/22 02:15 Ordered Renal Function Panel Q Lab 01/14/22 01:45 Ordered Renal Function Panel Q Lab 01/14/22 02:15 Ordered Renal Function Panel Q Lab 01/14/22 07:45 Ordered Renal Function Panel Q Lab 01/14/22 08:15 Ordered Renal Function Panel Q Lab 01/14/22 13:45 Ordered Renal Function Panel Q Lab 01/14/22 14:15 Ordered Renal Function Panel Q Lab 01/14/22 19:45 Ordered Renal Function Panel Q Lab 01/14/22 20:15 Ordered Renal Function Panel Q Lab 01/15/22 01:45 Ordered Renal Function Panel Q Lab 01/15/22 02:15 Ordered Renal Function Panel Q Lab 01/15/22 07:45 Ordered Renal Function Panel Q Lab 01/15/22 08:15 Ordered Renal Function Panel Q Lab 01/15/22 14:15 Ordered Renal Function Panel Q Lab 01/15/22 20:15 Ordered Renal Function Panel Q6H Lab 01/16/22 02:15 Ordered Renal Function Panel Q6H Lab 01/16/22 08:15 Ordered Renal Function Panel Q6H Lab 01/16/22 14:15 Ordered Sputum Culture and Gram Stain Routine Lab 01/13/22 07:59 Uncollected Radiology Impressions Abdomen X-Ray 01/09/22 20:37 IMPRESSION: No acute abnormality demonstrated. KUB X-Ray 01/11/22 06:00 IMPRESSION: Significant gaseous distention of the stomach. Renal Ultrasound 01/11/22 09:12 IMPRESSION: Technically difficult study. Grossly normal renal ultrasound. Chest X-Ray 01/13/22 07:59 IMPRESSION: 1. Satisfactory placement of the endotracheal tube. 2. Nasogastric tube is present with tip extending below the GE junction. The distal extent is not included on this examination. 3. Good position of the RIGHT central line. Chest/Abdomen/Pelvis CT 01/13/22 08:26 IMPRESSION: 1. Tiny bilateral pleural effusions with compressive atelectasis in the lung bases is new from previous. Volume loss RIGHT lower lobe. 2. No focal pneumonia. Interstitial edema is new from previous. 3. Recent postoperative changes appendectomy. No drainable fluid collection or abscess. 4. Evidence of diffuse small bowel ileus. Recommend interval follow-up. Colon is decompressed. 5. Arango catheter. 6. No free fluid in the abdomen or pelvis. 7. No other significant changes from previous. Notified Richard Castaneda MD at 01/13/2022 11:52 AM. Laboratory Results WBC 18.1 10^3/uL (4.0-10.0) H 01/13/22 12:22 Corrected WBC Cancelled 01/12/22 19:47 RBC 2.60 10^6/uL (4.1-5.3) L 01/13/22 12:22 Hgb 9.2 g/dL (11.7-16.6) L 01/13/22 12:22 Hct 28.6 % (42.0-52.0) L 01/13/22 12:22 MCV 110.0 fl (80-94) H 01/13/22 12:22 MCH 35.4 pg (28.0-34.0) H 01/13/22 12:22 MCHC 32.2 g/dL (30.0-36.0) 01/13/22 12:22 RDW 15.2 % (12.1-15.1) H 01/13/22 12:22 Plt Count 107 10^3/cmm (130-400) L 01/13/22 12:22 MPV 10.8 fL (7.4-10.4) H 01/13/22 12:22 Gran % Cancelled 01/12/22 19:47 Neut % (Auto) 83.8 % 01/13/22 04:04 Lymph % (Auto) Not Reportable 01/13/22 12:22 Bullock % (Auto) Not Reportable 01/13/22 12:22 Eos % (Auto) 0.9 % 01/13/22 04:04 Baso % (Auto) 0.4 % 01/13/22 04:04 Neut # (Auto) 28.27 10^3/uL (1.8-7.7) H 01/13/22 04:04 Lymph # (Auto) Not Reportable 01/13/22 12:22 Bullock # (Auto) Not Reportable 01/13/22 12:22 Eos # (Auto) 0.3 10^3/uL (0.0-0.8) 01/13/22 04:04 Baso # (Auto) 0.1 10^3/uL (0.0-0.1) 01/13/22 04:04 Absolute Gran (auto) Cancelled 01/12/22 19:47 Nucleated RBC % (auto) 0.4 % 01/13/22 04:04 Total Counted 100 (0-100) 01/13/22 12:22 Atypical Lymphs % 0.0 % (0-5) 01/13/22 12:22 Absolute Neutrophils 13.6 10^3/cmm (1.4-6.5) H 01/13/22 12:22 Segmented Neutrophils 49 % 01/13/22 12:22 Abs Segm Neuts (Man) 8.9 10/cmm (1.6-7.1) H 01/13/22 12:22 Band Neutrophils 26.0 % 01/13/22 12:22 Abs Band Neuts (Man) 4.7 10^3/cmm (0.0-1.2) H 01/13/22 12:22 Absolute Lymphocytes 1.3 10^3/cmm (1.2-3.4) 01/13/22 12:22 Lymphocytes (Manual) 7 % 01/13/22 12: Monocytes (Manual) 3.0 % 01/13/22 12: Absolute Monocytes 0.5 10^3/cmm (0.1-0.6) 01/13/22 12:22 Eosinophils (Manual) 0 % 01/13/22 12: Absolute Eosinophils 0.0 10^3/cmm (0.0-0.7) 01/13/22 12: Basophils (Manual) 0.0 % 01/13/22 12: Absolute Basophils 0.0 10^3/cmm (0.0-0.2) 01/13/22 12: Metamyelocytes 5.0 % 01/13/22 12: Myelocytes 9.0 % 01/13/22 12: Promyelocytes 1.0 % 01/13/22 12: Nucleated RBCs 1.0 /100WBC (0-1) 01/13/22 12:22 Nucleated RBCs # 0.1 /100WBC 01/13/22 04:04 Blast Cells 0 % (0-0) 01/12/22 02:15 Platelet Estimate Decreased (Normal) 01/13/22 12:22 PT 33.90 SECONDS (12.1-14.9) H D 01/13/22 18:19 INR 3.28 (0.8-1.2) H 01/13/22 18:19 APTT Cancelled 01/13/22 21:55 Fibrinogen 716 mg/dL (174-498) H 01/13/22 18:19 Fibrin Degrad Products TNP 01/13/22 18:19 D-Dimer 4.36 ug/mIFEU (0-0.59) H 01/13/22 18:19 Specimen Type Arterial 01/13/22 17:43 Sample Site Artline 01/13/22 17:43 ABG pH 7.00 (7.35-7.45) L* 01/13/22 17:43 ABG pCO2 57.7 mmHg (35-45) H 01/13/22 17:43 ABG pO2 84.8 mmHg (80.0-100.0) 01/13/22 17:43 ABG HCO3 14.3 mmol/L (22-26) L 01/13/22 17:43 ABG O2 Saturation 89.5 01/13/22 17:43 ABG Base Excess -16.5 mmol/L (-2.0-2.0) L 01/13/22 17:43 Fredy Test N/a 01/13/22 17:43 A-a O2 Gradient 62.9 mmHg (5-10) H 01/13/22 17:43 Hematocrit 31.4 % (42-52) L 01/13/22 17:43 Hgb O2 Saturation 88.2 % (95-100) L 01/13/22 17:43 Carboxyhemoglobin 0.3 %THgb (0.4-20.1) L 01/13/22 17:43 Methemoglobin 1.1 % (0.4-1.5) 01/13/22 17:43 Total Hemoglobin 10.2 g/dL (14-18) L 01/13/22 17:43 Sodium 136.0 mmol/L (131-143) 01/13/22 17:43 Potassium 4.9 mmol/L (3.5-5.0) 01/13/22 17:43 Glucose 77.0 mg/dL (70-115) 01/13/22 17:43 Ionized Calcium 1.0 mmol/L (1.1-1.4) L 01/13/22 17:43 O2 Delivery Device Vent 01/13/22 17:43 O2 Liters/Min 4.0 % 01/11/22 09:54 FiO2 90.0 % 01/13/22 17:43 Tidal Volume 0.50 01/13/22 17:43 PEEP 8.0 cmH20 01/13/22 17:43 Water Tender ID Cak 01/13/22 17:43 Sodium Cancelled 01/13/22 21:55 Potassium Cancelled 01/13/22 21:55 Chloride Cancelled 01/13/22 21:55 Carbon Dioxide Cancelled 01/13/22 21:55 Anion Gap Cancelled 01/13/22 21:55 BUN Cancelled 01/13/22 21:55 Creatinine Cancelled 01/13/22 21:55 GFR Calculation Not Reportable 01/13/22 Unknown Glucose Cancelled 01/13/22 21:55 Estimat Average Glucose 123 04/03/22 10:45 Hemoglobin A1c 5.9 % (4.0-6.0) 01/09/22 10:45 Calculated Osmolality 293 mOsm/kg (285-295) 01/13/22 04:04 Lactic Acid 11.0 mmol/L (0.5-2.2) H* 01/13/22 16:20 Lactic Acid (Sepsis) Cancelled 01/13/22 21:55 Lactate 6.1 mmol/L (0.5-2.2) H* 01/13/22 04:04 Uric Acid 9.7 mg/dL (3.4-7.0) H 01/11/22 03:43 Calcium Cancelled 01/13/22 21:55 Phosphorus Cancelled 01/13/22 21:55 Magnesium Cancelled 01/13/22 21:55 Total Bilirubin 2.5 mg/dL (0.15-1.2) H 01/13/22 04:04 AST 251 U/L (0-40) H 01/13/22 04:04 ALT 86 U/L (0-41) H 01/13/22 04:04 Alkaline Phosphatase 104 IU/L (40-130) 01/13/22 04:04 Creatine Kinase 3682 U/L (39-308) H* 01/13/22 04:04 Troponin T Baseline 669 ng/L (0-15) H* 01/13/22 16:20 Troponin T 120 Minute 789.1 ng/L (0-15) H 01/13/22 18:19 Delta Troponin T 120.1 ABS# (0-10) H* 01/13/22 18:19 Troponin T Hi Sens 6Hr Cancelled 01/13/22 21:55 Troponin T Hi Sens 6Hr Delta Cancelled 01/13/22 21:55 C-Reactive Protein 399.6 mg/L (0.0-4.9) H 01/13/22 04:04 NT-Pro-B Natriuret Pep > 53225 pg/mL (0-450) H 01/13/22 04:04 Total Protein 7.3 g/dL (6.6-8.7) 01/13/22 04:04 Albumin Cancelled 01/13/22 21:55 Globulin 4.1 g/dL (1.3-4.6) 01/13/22 04:04 Procalcitonin 42.70 ng/mL (0-0.5) H 01/13/22 04:04 TSH 0.69 uIU/mL (0.27-4.20) 01/11/22 03:43 Urine Color Yellow (Yellow) 01/11/22 Unknown Urine Appearance Hazy (CLEAR) A 01/11/22 Unknown Urine pH 5 (5-7) 01/11/22 Unknown Ur Specific [place] 1.015 (1.005-1.030) 01/11/22 Unknown Urine Protein 1+ (Negative) H 01/11/22 Unknown Urine Glucose (UA) Trace (Normal) H 01/11/22 Unknown Urine Ketones Negative (Negative) 01/11/22 Unknown Urine Blood 3+ (Negative) H 01/11/22 Unknown Urine Nitrate Negative (Negative) 01/11/22 Unknown Urine Bilirubin Neg (Negative) 01/11/22 Unknown Urine Urobilinogen Norm mg/dL (Negative) 01/11/22 Unknown Ur Leukocyte Esterase Negative (Negative) 01/11/22 Unknown Urine RBC 40-50 /hpf (0-2) H 01/11/22 Unknown Urine WBC 0-4 /hpf (0-5) H 01/11/22 Unknown Ur Squamous Epith Cells 0-4 /hpf (0-5) H 01/11/22 Unknown Amorphous Sediment 4+ /hpf 01/11/22 Unknown Urine Bacteria None /hpf (NONE) 01/11/22 Unknown Ur Random Sodium 36 mmol/L 01/11/22 Unknown Ur Random Potassium 59 mmol/L 01/11/22 Unknown Ur Random Chloride 12 mmol/L 01/11/22 Unknown Coronavirus 229E (PCR) Not detected (NOT DETECT) 01/09/22 11:47 Hep Bs Antigen Non-reactive (Nonreactive) 01/09/22 10:45 Hep Bs Antibody 3.5 (11.5-1000) L 01/09/22 10:45 Hepatitis C Antibody Non-reactive (Nonreactive) 01/09/22 10:45 SARS-CoV-2 (PCR) Not detected (NOT DETECT) 01/09/22 11:47 Blood Type A Positive 01/09/22 15:46 Rho(D) Type Positive 01/09/22 15:46 Antibody Screen Negative 01/09/22 15:46 Crossmatch See Detail 01/09/22 15:46 Vitals Last Vital Signs Temp 97.4 F L 01/13/22 16:30 Pulse 66 01/13/22 20:05 Resp 22 H 01/13/22 20:05 BP 128/65 01/13/22 18:30 Pulse Ox 88 L 01/13/22 20:05 Discharge Plan Discharge Patient Disposition: Condition: Prescriptions: No Action furosemide 40 mg tablet 40 mg PO DAILY 0RF azithromycin 250 mg tablet See Rx Instructions .ROUTE .COMPLEX 0RF Rx Instructions: 250 mg orally on Monday, , & Monday metoprolol succinate 50 mg tablet extended release 24 hr 50 mg PO DAILY 0RF isosorbide mononitrate 120 mg tablet extended release 24 hr 120 mg PO DAILY 0RF pantoprazole 40 mg tablet,delayed release (DR/EC) 40 mg PO DAILY 0RF FeroSul 325 mg (65 mg iron) tablet 325 mg PO DAILY 0RF lisinopril 5 mg tablet 5 mg PO DAILY 0RF fluticasone propionate 50 mcg/actuation spray,suspension 2 spray INTRANASAL DAILY PRN (Reason: Nasal Congestion) 0RF rosuvastatin 40 mg tablet 20 mg PO DAILY 0RF bupropion HCl 150 mg tablet extended release 24 hr 150 mg PO DAILY 0RF Eliquis 5 mg tablet 5 mg PO BID 0RF Stiolto Respimat 2.5-2.5 mcg/actuation mist 1 puff INHALATION DAILY 0RF albuterol sulfate 90 mcg/actuation Hfa Aerosol Inhaler 2 puff INHALATION Q6H PRN (Reason: Shortness Of Breath) 0RF Sinex Ultra Fine Mist Regular 0.5 % Mist 1 spray INTRANASAL Q8H PRN (Reason: Nasal Congestion) 0RF Referrals: Maximo Morgan MD [Physician] - Patient Instructions: Post Anesthesia Care Discharge Attestations Time Spent in Discharge Care*: less than 30 min Specific Discharge Activities: Other discharge activites (optional): Time of meant: 10:01 PM on January 13, 2022 Quality Metrics Clinical Quality Measures [ No reported AMI, CVA or VTE this stay] Coding Level of Care Code Established Pt Acute Chg FW DC note Patient Type Established History Problem Focused Exam Problem Focused Medical Decision Making High Complexity Diagnoses Septic shock A41.9; R65.21 Lactic acidosis E87.2 Acidemia E87.2 NSTEMI (non-ST elevated myocardial infarction) I21.4 Appendicitis with perforation K35.32 CAD (coronary artery disease) I25.10 Sepsis A41.9 ROXANA (acute kidney injury) N17.9 NSTEMI (non-ST elevated myocardial infarction) I21.4 Systolic CHF I50.20 COPD exacerbation J44.1 Acute respiratory failure with hypoxia J96.01 Time Spent (min) 30 Comment .
--- NOTE | 2022-01-13 22:41 | PM.CONSULT ---
Providers/Reason For Consult Consulting Physician/Specialty*: Jose Guadalupe Granda MD Reason for Consult*: Troponin elevation Requesting Physician: Dr Castaneda Attending Physician: Richard Castaneda MD Primary Care Provider: Jason Rivas MD History of Present Illness History of Present Illness Harpreet Pablo is a 76 year old male with past medical history of congestive heart failure, CAD, atrial fibrillation on Eliquis who presented with abdominal pain and was found to have acute appendicitis. He underwent laparoscopic appendectomy and was found to have necrotic appendicitis. He had sepsis subsequently. He had renal failure requiring dialysis, developed A. fib with RVR and was put on CRRT. Patient developed respiratory failure and initially was put on BiPAP however as of declining mentation, he was eventually intubated. He also had aspiration pneumonia. He is requiring multiple pressors. Has multiorgan failure with lactic acid over 11 now. Cardiology was consulted as patient's troponins were significantly elevated. His recent echocardiogram showed LV systolic function was mildly reduced with EF of 40 to 45%. EKG shows left bundle branch block which is his baseline EKG abnormality. Review of Systems General: Reports: ROS unobtainable due to endotracheal tube Medications/Allergies Home Medications Medication Instructions Recorded Confirmed Last Taken Type albuterol sulfate 90 mcg/actuation 2 puff INHALATION Q6H PRN 01/09/22 01/09/22 Unknown History aerosol inhaler apixaban 5 mg tablet (Eliquis) 5 mg PO BID 01/09/22 01/09/22 01/09/22 History azithromycin 250 mg tablet See Rx Instructions .ROUTE .COMPLEX 01/09/22 01/09/22 01/07/22 History bupropion HCl 150 mg 24 hr tablet, 150 mg PO DAILY 01/09/22 01/09/22 01/09/22 History extended release ferrous sulfate 325 mg (65 mg 325 mg PO DAILY 01/09/22 01/09/22 01/09/22 History iron) tablet (FeroSul) fluticasone propionate 50 2 spray INTRANASAL DAILY PRN 01/09/22 01/09/22 Unknown History mcg/actuation nasal spray,suspension furosemide 40 mg tablet 40 mg PO DAILY 01/09/22 01/09/22 01/09/22 History isosorbide mononitrate 120 mg 120 mg PO DAILY 01/09/22 01/09/22 01/09/22 History tablet,extended release 24 hr lisinopril 5 mg tablet 5 mg PO DAILY 01/09/22 01/09/22 01/09/22 History metoprolol succinate 50 mg 50 mg PO DAILY 01/09/22 01/09/22 01/09/22 History tablet,extended release 24 hr pantoprazole 40 mg tablet,delayed 40 mg PO DAILY 01/09/22 01/09/22 01/09/22 History release phenylephrine HCl 0.5 % nasal mist 1 spray INTRANASAL Q8H PRN 01/09/22 01/09/22 Unknown History rosuvastatin 40 mg tablet 20 mg PO DAILY 01/09/22 01/09/22 01/08/22 History tiotropium 2.5 mcg-olodaterol 2.5 1 puff INHALATION DAILY 01/09/22 01/09/22 01/09/22 History mcg/actuation mist for inhalation (Stiolto Respimat) Allergies Allergy/AdvReac Type Severity Reaction Status Date / Time No Known Allergies Allergy Unverified 01/09/22 12:52 Current Medications Generic Name Dose Route Start Last Admin Trade Name Freq PRN Reason Stop Dose Admin Acetaminophen 650 mg 01/09/22 14:59 01/11/22 16:36 Acetaminophen 325 Mg Tablet PO 650 mg Q6H PRN Administration Mild/Mod Pain Or Temp >/= 101 Hydrocodone Bitart/Acetaminophen 1 tab 01/11/22 09:14 01/12/22 13:13 Hydrocodone-Acetaminophen 5-325 Mg Tablet PO 1 tab Q4H PRN Administration MODERATE PAIN Albuterol/Ipratropium 3 ml 01/09/22 16:00 01/13/22 20:09 Ipratropium-Albuterol 3 Ml Neb INHALATION 3 ml Q4H.RESPIRATORY NORRIS Administration Amiodarone HCl 400 mg 01/13/22 09:30 01/13/22 13:16 Amiodarone 200 Mg Tablet PO 400 mg Q12H NORRIS Administration Aspirin 81 mg 01/12/22 02:00 01/13/22 13:02 Aspirin 81 Mg Ec Tablet PO Not Given DAILY NORRIS Atorvastatin Calcium 80 mg 01/10/22 09:00 01/13/22 13:03 Atorvastatin 40 Mg Tablet PO Not Given DAILY NORRIS Budesonide 0.5 mg 01/09/22 20:00 01/13/22 20:09 Budesonide 0.5 Mg/2 Ml Neb INHALATION 0.5 mg BID.RESPIRATORY NORRIS Administration Bupropion HCl 150 mg 01/12/22 09:00 01/13/22 13:03 Bupropion Xl (24 Hr) 150 Mg Tablet PO Not Given DAILY NORRIS Clopidogrel Bisulfate 75 mg 01/12/22 02:00 01/13/22 13:03 Clopidogrel 75 Mg Tablet PO Not Given DAILY NORRIS Ferrous Sulfate 325 mg 01/12/22 09:00 01/13/22 13:04 Ferrous Sulfate Ec 325 Mg Tablet PO Not Given DAILY NORRIS Heparin Sodium (Porcine) 0 unit 01/11/22 11:09 01/13/22 14:47 Heparin 5,000 Unit/Ml Inj 1 Ml IV 2,200 unit PRN PRN Administration Heparin weight-base protocol Protocol Heparin Sodium (Porcine) 500 unit 01/12/22 13:34 01/13/22 20:50 Heparin Lock Flush 500 Unit/5 Ml Syringe IV 500 unit PRN PRN Administration At CRRT disconnect Piperacillin Sod/Tazobactam 50 mls @ 12.5 mls/hr 01/11/22 13:00 01/13/22 17:25 Sod 3.375 gm/ Sodium Chloride IV Infused Q12H NORRIS Infusion Protocol Linezolid 600 mg in 300 mls @ 300 mls/hr 01/11/22 10:00 01/13/22 13:08 Zyvox Premix IV Infused Q12H NORRIS Infusion Heparin Sodium/Sodium Chloride 25,000 unit in 500 mls @ 0 mls/hr 01/11/22 11:15 01/13/22 19:13 Heparin Drip IV 5.9 unit/kg/hr .Q0M NORRIS 13 mls/hr Titration Protocol Per Protocol Albumin Human 12.5 gm in 50 mls @ 60 mls/hr 01/11/22 18:06 01/13/22 08:43 Albumin IV Infused PRN PRN Infusion Hypotension and/or symptomatic Amiodarone HCl 900 mg/ 518 mls @ 0 mls/hr 01/12/22 15:30 01/13/22 11:15 Dextrose/ IV Miscellaneous IV Infused Supplies .Q0M NORRIS Titration Protocol Per Protocol Norepinephrine Bitartrate 4 mg 254 mls @ 0 mls/hr 01/13/22 08:00 01/13/22 19:20 / Dextrose IV Infused .Q0M NORRIS Titration Protocol Per Protocol Midazolam HCl 100 mg/ Sodium 100 mls @ 0 mls/hr 01/13/22 08:00 01/13/22 10:35 Chloride IV 2 mg/hr .Q0M NORRIS 2 mls/hr Titration Protocol Per Protocol Vasopressin 100 unit/ Sodium 100 mls @ 0 mls/hr 01/13/22 08:15 01/13/22 19:13 Chloride IV 0.04 unit/min .Q0M NRORIS 2.4 mls/hr Titration Protocol Per Protocol Metronidazole 500 mg in 100 mls @ 100 mls/hr 01/13/22 08:30 01/13/22 18:54 Flagyl Iv IV Infused Q8H NORRIS Infusion Protocol Fentanyl 1,000 mcg/ Sodium 100 mls @ 0 mls/hr 01/13/22 08:45 01/13/22 10:35 Chloride IV 30 mcg/hr .Q0M NORRIS 3 mls/hr Titration Protocol Per Protocol Sodium Bicarbonate 100 meq/ 1,100 mls @ 125 mls/hr 01/13/22 10:30 01/13/22 18:07 Dextrose IV 125 mls/hr .Q8H48M NORRIS Infusion Norepinephrine Bitartrate 8 mg 508 mls @ 0 mls/hr 01/13/22 11:45 01/13/22 19:19 / Dextrose IV 20 mcg/min .Q0M NORRIS 76.2 mls/hr Administration Protocol Per Protocol Fluconazole 200 mg in 100 mls @ 100 mls/hr 01/13/22 12:00 01/13/22 14:22 Diflucan Premix IV Infused Q24H NORRIS Infusion Dobutamine HCl/Dextrose 500 mg in 250 mls @ 0 mls/hr 01/13/22 18:00 01/13/22 21:30 Dobutamine Drip IV 10 mcg/kg/min .Q0M NORRIS 24.7 mls/hr Titration Protocol Per Protocol Dopamine HCl/Dextrose 400 mg in 250 mls @ 15.436 mls/hr 01/13/22 20:00 01/13/22 21:35 Intropin Drip IV 20 mcg/kg/min CONT NORRIS 61.75 mls/hr Titration Protocol 5 MCG/KG/MIN Lactulose 10 gm 01/11/22 16:30 01/13/22 17:48 Lactulose Oral Liq 20 Gm/30 Ml Udc PO 10 gm Q12H NORRIS Administration Lorazepam 1 mg 01/12/22 19:38 01/12/22 20:19 Lorazepam 2 Mg/Ml Inj 1 Ml IVP 1 mg ONCE PRN Administration ANXIETY Metoprolol Tartrate 25 mg 01/11/22 11:15 01/13/22 10:24 Metoprolol Tartrate 25 Mg Tablet PO Not Given BID@1000,2200 NORRIS Pantoprazole Sodium 40 mg 01/09/22 16:00 01/13/22 17:48 Pantoprazole 40 Mg Sdv IVP 40 mg Q12H NORRIS Administration Sodium Chloride 1,000 - 7,000 ml 01/12/22 13:34 01/13/22 14:23 Sodium Chloride 0.9% 1,000 Ml Bag CRRT 1,000 ml PRN PRN Administration For priming CRRT Machine Vancomycin HCl 250 mg 01/13/22 13:00 01/13/22 17:49 Vancomycin 1,000 Mg Oral Loretta (Btl) PO 250 mg QID NORRIS Administration PFSH Acute PFSH: Medical History Atrial fibrillation CAD (coronary artery disease) Chronic kidney disease Emphysema lung Systolic CHF Surgical History S/P laparoscopic appendectomy (01/09/22) Family History Other CAD (coronary artery disease) Vitals/I&O/Wt Last Vital Signs Temp 97.4 F L 01/13/22 16:30 Pulse 66 01/13/22 20:05 Resp 22 H 01/13/22 20:05 BP 128/65 01/13/22 18:30 Pulse Ox 88 L 01/13/22 20:05 01/13/22 01/13/22 01/13/22 06:59 14:59 22:59 Intake Total 152.233 / 2759.656 2785.297 / 7317.913 8654.378 / 3265.675 Output Total 30 / 85 800 / 800 50 / 850 Balance 122.233 / 7246.601 1239.297 / 0564.558 6073.378 / 2415.675 Weight last 48 hrs Weight 181 lb 8 oz Weight 161 lb 9.581 oz Weight 161 lb 9.581 oz Weight 160 lb 14.999 oz Weight 181 lb 8 oz Weight 171 lb 8.314 oz Physical Exam Narrative: GENERAL: Patient is intubated NECK: No jugular vein distension. [] HEENT: No cyanosis. No icterus. No pallor. [] HEART: Regular S1 and S2 LUNGS: has wheezing EXTREMITIES: Lower extremities with 1+ edema bilaterally. Skin mottling is seen Urinary Catheter Management: Arango: Cath Placed During This Visit: yes Reason for Continuing Indwelling Catheter: Accurate Measurement of Urinary Output in Critically Ill Patients Urinary Catheter Date of Insertion: 01/09/22 Urinary Catheter Time of Insertion: 16:45 Data : 01/13/22 12:22 01/13/22 18:19 Micro: Microbiology 01/11/22 Unknown Urine Culture - Final Urine,Clean Catch A&P Assessment and plan (1) Troponin level elevated: Status: Acute (2) Acidemia: Status: Acute (3) Lactic acidosis: Status: Acute (4) Septic shock: Status: Acute (5) S/P laparoscopic appendectomy: Status: Acute (6) Acute respiratory failure with hypoxia: Status: Acute (7) Systolic CHF: Status: Acute (8) ROXANA (acute kidney injury): Status: Acute Plan Patient has septic shock and is currently intubated. Troponin elevation is likely secondary to demand ischemia in the setting of significant lactic acidosis with a value more than 11. Will conservatively manage with medical therapy at this time. Repeat echocardiogram Patient's prognosis is guarded however once he recovers, can consider ischemic work-up. Thank you for involving us with care of this patient. We will continue to follow. 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
--- NOTE | 2022-01-13 23:06 | PC.NURSE ---
2007 Dr. Chacon updated on patient status with new orders placed by physician. Patient further deteriorate, Ines notified with orders to return blood and discontinue CRRT. Dr. Salinas also notified with orders to start dopamine. Patient's condition continued to further deteriorate. 2139 Dr. Salinas notified with orders given to start Phenylephrine. Physician notified family of patients status. Family came to bedside to further discuss patient's condition at 2154. Physician gave verbal order for DNR. 2199 patient went into cardiac arrest. Physician called to bedside with TOD called at 2200 with family at bedside. maintenance and operations supervisor notified. MTS called at 2218. Patient's son, Kang, signed transfer consent for [facility] to transport patient.
--- NOTE | 2022-01-14 00:07 | PC.NURSE ---
Aby Delgado from [facility] called to update and request we hold patient until they are able to discuss donation later in the day. Post mortem care performed. House supervisory notified. Patient to be transported to [facility].
--- NOTE | 2022-01-14 00:23 | PC.NURSE ---
All lines removed from patient. [facility]
--- NOTE | 2022-01-14 00:36 | PC.NURSE ---
Fentanyl waste 60.6ml Versed waste 75.5ml verified with second nurse, Blanche FIELDS.
--- NOTE | 2022-01-14 11:01 | PM.DDS ---
Discharge Providers DDS Date of Admission: 01/09/22 14:59 Date Summary Completed: 01/16/22 Attending Provider at Admission: Richard Castaneda MD Attending Provider at Discharge: Richard Castaneda MD Primary Care Provider: Jason Rivas MD DS Diagnoses Hospital Diagnoses (1) Septic shock: Permanent Problem Comments: Acute on chronic respiratory failure requiring intubation on January 13, 2022, the patient typically is O2 dependent via nasal cannula at 3 L/min for COPD Atrial for ablation CHF, ejection fraction 40% Coronary artery disease, status post OK Acute on chronic kidney disease requiring hemodialysis Seasonal allergies Hypertension GERD Hyperlipidemia Macrocytic anemia Number cytopenia Coagulopathy Hyponatremia Hyperkalemia Hyperphosphatemia Transaminitis Elevated troponin, query ACS Hyperuricemia Ileus (2) Lactic acidosis: (3) Acidemia: (4) NSTEMI (non-ST elevated myocardial infarction): (5) Appendicitis with perforation: (6) CAD (coronary artery disease): (7) Sepsis: (8) ROXANA (acute kidney injury): (9) NSTEMI (non-ST elevated myocardial infarction): (10) Systolic CHF: (11) COPD exacerbation: (12) Acute respiratory failure with hypoxia: Reason for Visit Reason for Visit SOB; N/V/D Summary Summary Summary: This is a 76-year-old male with a past medical history of COPD, systolic CHF, CAD, atrial fibrillation on Eliquis who presents to [facility] due to abdominal pain Patient was admitted to [facility] for acute appendicitis with a small amount of free air seen on CT, underwent laparoscopic appendectomy, found to have acute necrotic appendicitis, managed with broad-spectrum antibiotic therapy, managed in the ICU, his white blood cell count went as high as 35,000, overall he was getting up with nursing staff, ambulating with physical therapy as early as 01/11/2022 He also was admitted with acute hypoxic respiratory failure secondary to systolic diastolic CHF and COPD received diuresis, developed acute renal failure, initially managed with dialysis, however developed A. fib with RVR, placed on amiodarone, requiring CRRT, receiving CRRT. However patient's mentation decline, becoming increasingly confused, increasingly short of breath, managed with BiPAP therapy for worsening respiratory failure. Patient also had evidence of sepsis secondary acute appendicitis and aspiration pneumonia requiring broad-spectrum antibiotic therapy. There is also concerns for aspiration, with new patchy densities on chest x-ray, managed with BiPAP, broad-spectrum metabolic therapy. Gradually patient's respiratory status worsened, mentation decline, his heart rates did improve with amiodarone. The morning of 01/13/2022, patient had concerns for acute hypoxic respiratory failure, decline in mentation, with lactic acidosis, multiorgan failure, elevated some NSTEMI -At this point I was concerned with worsening respiratory status and mentation requiring intubation, protecting airway -Given his worsening sepsis and lactic acidosis, concern for worsening pneumonia/aspiration, worsening sepsis related to appendicitis -Given his worsening hypotension, worried about septic shock, and also cardiogenic shock given his NSTEMI -Worsening renal failure, resulting in lactic acidosis, fluid overload, chronic CRRT -Thus a decision was made to urgently intubate patient, place arterial line, start pressors, consult cardiology, pulmonary critical care Patient was seen the morning of 01/13/2022 overnight he was afebrile, tachycardic, tachypneic, currently on Levophed to maintain his map around 65 -During my examination patient is morning, he would not awaken to sternal rub, was quite tachypneic, had mottling up to the level of the stomach -Due to concerns of acute hypoxic respiratory failure, septic shock I discussed with Dr. Peres and proceeded with intubation -Patient was intubated by Dr. Peres, art line placed, placed on fentanyl, Versed, placed on Levophed, vasopressin for maintain map around 65 -Immediately I was concerned for aspiration pneumonia, as NG tube was inserted, had over 700 cc of bilious fluid suctioned -In addition given his abdominal distention, mottling up to the level of the stomach, lactic acidosis, was concerned for intra-abdominal pathology -Patient was taken to CT, I attended this, no hypotension episodes, he maintained his sats greater than 90, transported back to ICU -I remained at bedside, his maps remained at approximately 65, O2 sats currently 90, still appears mottled from lower extremities up to the level abdomen, remains intubated, remains on sedation remains on vasopressin, Levophed for maintaining blood pressure, is being weaned off amiodarone, remains on heparin drip given atrial fibrillation -CT scan, it does not show any randa perforation, or anastomosis leak,, no abscess, did show ileus, no free fluid, does show bilateral pleural effusions, component of aspiration pneumonia -Likely patient has developed acute hypoxic respiratory failure secondary to aspiration pneumonia, and acute encephalopathy -He also has acute encephalopathy secondary to lactic acidosis, acidemia -I am still concerned for intra-abdominal pathology, given elevated lactic acid, distended belly, mottling appearance of belly -He is in septic shock, is on multiple pressors, broad-spectrum antibiotic therapy -He is receiving CRRT this afternoon I discussed with family at bedside, multiple times, family is aware, -I discussed with family as above, patient's acute hypoxic respiratory failure, septic shock, aspiration pneumonia, acute encephalopathy, lactic acidosis, acidemia, acute renal failure -Nonetheless I am still concerned about intra-abdominal pathology given elevated lactic acid, possible ischemic bowel, however no pneumatosis Coli, but will continue to monitor, serial abdominal exams -Discussed the patient's currently critically ill, prognosis is guarded -We will continue to keep them updated Patient was reexamined multiple times throughout the day -Late in the afternoon, patient remained on 90% FiO2, remained on 2 pressor therapy, his vasopressin was not being weaned off -Patient subsequently was noted to developing mottling, mottling up to the level of the neck, -Blood work revealed severe metabolic acidosis, lactic acidosis -Patient remains on CRRT -I increased patient's bicarb to 125 cc an hour -Given his current model status, indicating poor organ perfusion, persistent severe lactic acidosis and acidemia pH 7 -Patient was reexamined in the evening, after discussing with cardiology, patient's echocardiogram showed severely reduced ejection fraction, he was already on aspirin, Plavix, heparin drip, possibly has had a cardiac event?EKG did show new LBBB, has elevated troponins, with positive delta troponins.? Possibly a component of cardiogenic shock in addition to the septic shock -I instructed nurse to start dobutamine 5 mcg/kg/min -I spoke to patient's son, updated in patient's critical status, I advised patient's family that I will be worried that in addition to septic shock that he has had a cardiac event -I am worried about cardiogenic shock in addition to septic shock, given his diminished ejection fraction, it looks like he might have had a cardiac event, he is too clinically unstable to undergo a cardiac catheterization, but if he clinically improves we can pursue it, however he remains hypotensive, has severe acidemia, for now our plans would be supportive, start dobutamine, continue Levophed continue heparin, aspirin, statin, Plavix, cardiology consulted -He currently appears mottled, up to the level of the neck, indicating poor organ perfusion, poor prognosis -I think that there is a high likelihood that he will have an abnormal cardiac event in the next few hours, unless of cardiac arrest, patient remains a full code, family wants to continue inventions to see how he does -I advised family that he has a poor prognosis, likely poor chance of recovery, high risk of morbidity and mortality the next few hours -I advised family to stay close to the hospital, and we will update them as things progress, but currently he is critically ill, prognosis is poor and I am worried about him going into cardiac arrest -Overnight, patient continued hypotensive, dopamine drip was started, patient continued to further clinically deteriorate, was started on phenylephrine, family was notified, family came to bedside, after discussion with physician and family, patient was made DNR, 2199 patient went into cardiac arrest, time of 2200 Additional Data Confirmation of as documented by pronouncing clinician: no pulse, no respirations and no heart sounds Family: at bedside Additional persons at bedside: nursing staff Attending/PCP notified?: I am attending Was code activated?: No Advance directives?: Yes Discharge Plan Discharge Patient Disposition: Condition: Probable Cause of Probable cause of : Cardiac arrest DS Attestations Time Spent in /Discharge Care*: greater than 30 min Quality - AMI: AMI present?: Yes Quality - Stroke: CVA present?: No Symptom Onset Unknown: No Quality - VTE: VTE present?: No Deep Vein Thrombosis/Pulmonary Embolism Present on Admission: No Coding Level of Care Code Acute Cardiopulmonary Technician for [facility] Fwd Diagnoses Septic shock A41.9; R65.21 Lactic acidosis E87.2 Acidemia E87.2 NSTEMI (non-ST elevated myocardial infarction) I21.4 Appendicitis with perforation K35.32 CAD (coronary artery disease) I25.10 Sepsis A41.9 ROXANA (acute kidney injury) N17.9 NSTEMI (non-ST elevated myocardial infarction) I21.4 Systolic CHF I50.20 COPD exacerbation J44.1 Acute respiratory failure with hypoxia J96.01
== END 2022-01-13 22:01 | disposition expired | DRG 853 ==
LOC: ER 13:11 → ICU 15:41
PROVIDERS: Emergency Medicine; Internal Medicine; Internal Medicine Nephrology; Surgery; Admitting Provider Family Medicine; Emergency Provider Emergency Medicine; PCP Internal Medicine; Visit Provider Family Medicine
PROC: 0DTJ4ZZ Resection of Appendix, Percutaneous Endoscopic Approach (ICD-10-PCS; CPT 44970; principal; 2022-01-09 16:30)
DX: A41.9 Sepsis, unspecified organism (principal); R65.21 Severe sepsis with septic shock; K35.32 Acute appendicitis with perforation, localized peritonitis, and gangrene, without abscess; I50.43 Acute on chronic combined systolic (congestive) and diastolic (congestive) heart failure; I21.4 Non-ST elevation (NSTEMI) myocardial infarction; J96.21 Acute and chronic respiratory failure with hypoxia; N17.0 Acute kidney failure with tubular necrosis; G93.41 Metabolic encephalopathy; J69.0 Pneumonitis due to inhalation of food and vomit; I13.0 Hypertensive heart and chronic kidney disease with heart failure and stage 1 through stage 4 chronic kidney disease, or unspecified chronic kidney disease; E87.1 Hypo-osmolality and hyponatremia; E87.2 Acidosis; K56.7 Ileus, unspecified; J43.9 Emphysema, unspecified; N18.31 Chronic kidney disease, stage 3a; I25.10 Atherosclerotic heart disease of native coronary artery without angina pectoris; Z99.81 Dependence on supplemental oxygen; I48.91 Unspecified atrial fibrillation; I25.2 Old myocardial infarction; I95.9 Hypotension, unspecified; I46.9 Cardiac arrest, cause unspecified; D64.9 Anemia, unspecified; E78.5 Hyperlipidemia, unspecified; K21.9 Gastro-esophageal reflux disease without esophagitis
CPT/HCPCS: 36415; 36592; 36600; 51702; 71045; 71260; 71275; 74018; 74177; 76770; 80051; 80053; 80069; 81001; 82330; 82436; 82550; 82803; 82805; 83036; 83605; 83735; 83880; 84100; 84133; 84145; 84300; 84443; 84484; 84550; 85007; 85025; 85027; 85378; 85384; 85610; 85730; 86140; 86706; 86803; 86850; 86900; 86920; 87040; 87086; 87340; 87635; 88304; 93005; 93308; 94002; 94640; 94660; 94664; 94799; 96365; 96367; 96372; 96375; 99285; A4570; C1751; C8929; C9113; J0282; J0330; J0690; J1100; J1160; J1170; J1200; J1250; J1265; J1450; J1630; J1642; J1644; J1650; J1940; J2020; J2060; J2250; J2543; J2704; J2710; J2930; J3010; J3370; J3475; J3490; J7030; J7040; J7060; J7169; J7611; J7626; P9047; Q3014; Q9956; Q9967; S0030